=== PATIENT | female | born 1945 | race Caucasian/White ===

== ENCOUNTER 2017-02-21 13:51 | Observation (INO) | payer MEDICARE ==
[2017-02-21] MEDS ORDERED: Nitrostat 0.4 MG Tablet SL PRN (14:14)
[2017-02-21] MEDS: ECOTRIN 81 MG PO SCH (14:29)
[2017-02-21 15:11] LABS: ALBUMIN 3.9 g/dL (3.4-5.0); ANION GAP 13.2 MEQ/L (5-15); BILIRUBIN,TOTAL 0.4 mg/dL (0.2-1.0); Carbon Dioxide 30.1 mEq/L (21-32); Potassium 4.5 mEq/L (3.5-5.1); Total Protein 7.3 gm/dL (6.4-8.2)
--- NOTE | 2017-02-21 16:28 | XRAY ---
Indication: Chest pain. Comparison: March 24, 2016. PA/lateral chest remains hyperinflated and clear. Heart is not enlarged. Vascularity normal. Bony thorax intact again with mild osteopenia and minimal scoliosis. Impression: Stable nonacute hyperinflated chest.
[2017-02-21] MEDS: Lasix 40 MG PO SCH (17:15)
[2017-02-21 18:01] LABS: BASOPHIL % 0.6 % (0.0-0.4); Eosinophil % 3.2 % (0.00-5.0); Granulocytes % 56.5 % (36.0-66.0); Lymphocytes % 33.4 % (24.0-44.0); Mean Cell Volume 90.3 fl (78-100); Mean Platelet Volume 9.9 fl (6-9.5); Monocytes % 6.3 % (0.0-12.0); Platelet Count 239 K/mm3 (150-450); Red Blood Count 4.31 M/mm3 (4.1-5.4); Red Cell Distribution Width 13.9 % (11.5-14.0); White Blood Count 6.5 K/mm3 (4.0-10.5)
[2017-02-21] MEDS: Colace 100 MG PO SCH (21:28)
[2017-02-21] MEDS: Klor Con 10 MEQ PO SCH (21:28)
[2017-02-21] MEDS: MORPHINE SULFATE 4 MG INJ IV PRN (23:29)
[2017-02-22] MEDS: MORPHINE SULFATE 4 MG INJ IV PRN (05:55)
--- NOTE | 2017-02-22 09:03 | HP ---
CHIEF COMPLAINT: Chest pain, left arm pain and leg pain. HISTORY OF PRESENT ILLNESS: The patient is a 71 year-old white female who presented to my office with complaints of significant left arm pain and pressure-type sensation. She has been having chest pain off and on intermittently. She has not been taking medication for this. 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 The patient also complained of significant cramping in her hands and feet that are debilitating and bring her to tears. The patient due to her complaints with concern for cardiac in nature EKG was performed in the office and was not normal but there was no significant ST-T wave changes. The patient was felt the need to be admitted to the hospital to rule out myocardial infarction and to help evaluate for these leg cramps. PAST MEDICAL HISTORY: Significant for rheumatoid arthritis, narcolepsy, coronary artery disease. HOME MEDICATIONS: List includes aspirin 81 mg a day, stool softener, Lasix 40 mg b.i.d., magnesium tablets on a PRN basis for the cramps and meloxicam 15 mg a day, Ritalin 20 mg a day for narcolepsy, Prilosec 20 mg a day, fluoxetine 20 mg a day and potassium mEq b.i.d. ALLERGIES: NKDA. PHYSICAL EXAMINATION: Revealed a well nourished, well developed, elderly white female who was noted to be in mild to moderate distress. Her most recent vital signs show a temperature of 97.9F, pulse 73, respiratory rate 16, blood pressure 119/60. O2 saturation 93% on room air. HEENT: Normocephalic, atraumatic. Pupils equal round reactive to light. Extraocular movements intact. Oropharynx is pink and moist. NECK: Supple without lymphadenopathy, thyromegaly or JVD. CHEST: Clear to auscultation with good air movement bilaterally. HEART: Regular rate and rhythm without murmurs, rubs or gallops heard. ABDOMEN: Soft, nontender, nondistended without hepatosplenomegaly or masses. EXTREMITIES: Without clubbing, cyanosis or edema. NEUROLOGIC: The patient is alert and oriented x3 with no focal deficits. LAB DATA AND TESTS: Chest x-ray with no abnormalities noted. Her EKG showed her to be in sinus rhythm with somewhat low voltage and left axis deviation and poor R-wave progression across the precordial leads. Her laboratory studies otherwise show her troponins to be less than 0.017. She had CBC which was entirely normal. Her metabolic panel was likewise normal with a glucose of 107, BUN 15, creatinine 1.22, potassium 4.5, calcium 9.3 and magnesium was 2.0. ASSESSMENT: 1) A patient with chest pain and history of coronary artery disease. She has been admitted to rule out myocardial infarction. 2) Significant muscle cramps. The patient has been given morphine for pain relief. She will be treated with diltiazem 30 mg t.i.d. orally to try to help out with these muscle cramps as well as PRN magnesium. We will also leave her an order for Flexeril 10 mg t.i.d. PRN for the cramps if the above does not help. We will also have her evaluated by OT/PT to help out strengthening and ambulation.
[2017-02-22] MEDS: Cardizem 30 MG PO SCH ×3 (09:32→20:47)
[2017-02-22] MEDS: MAG-OX 400 PO SCH ×3 (09:32→20:46)
[2017-02-22] MEDS: Paxil 20 MG PO SCH (09:33)
[2017-02-22] MEDS: Lasix 40 MG PO SCH ×2 (09:33→16:44)
[2017-02-22] MEDS: Klor Con 10 MEQ PO SCH ×2 (09:33→20:47)
[2017-02-22] MEDS: Protonix 40MG Tablet PO SCH (09:33)
[2017-02-22] MEDS: Colace 100 MG PO SCH ×2 (09:33→20:47)
[2017-02-22] MEDS: ECOTRIN 81 MG PO SCH (09:33)
[2017-02-22] MEDS: Mobic 7.5 MG PO SCH (09:34)
[2017-02-22] MEDS: Ritalin 5 MG PO SCH (09:41)
[2017-02-22] MEDS ORDERED: NON-FORMULARY ITEM (Meloxicam [Mobic] 15 MG) PO SCH (10:00)
[2017-02-22] MEDS ORDERED: MAG-OX 400 PO SCH (10:00)
[2017-02-22] MEDS ORDERED: NON-FORMULARY ITEM (Omeprazole 20 Mg [Prilosec 20 Mg] 40 MG) PO SCH (10:00)
[2017-02-22] MEDS ORDERED: METHYLPHENIDATE HCL 20 MG PO SCH (10:00)
[2017-02-22 10:01] LABS: PHOSPHOROUS 4.5 mg/dL (2.6-4.7)
[2017-02-22] MEDS: ENOXAPARIN SODIUM SQ SCH (11:00)
[2017-02-22] MEDS: Cyclobenzaprine 10 MG PO PRN (11:00)
[2017-02-22 23:36] VITALS: O2SAT 92
[2017-02-23 04:14] VITALS: BP 128/61; PULSE 62
[2017-02-23] MEDS: Cardizem 30 MG PO SCH (05:58)
--- NOTE | 2017-02-23 08:42 | PCM.DCORD ---
- Discharge Discharge Date: 02/23/17 Prescriptions: New Diltiazem HCl 30 mg [Cardizem 30 MG] 30 mg PO Q8HT #90 tablet Cyclobenzaprine HCl 10 mg [Cyclobenzaprine 10 MG] 10 mg PO TID PRN PRN #30 tablet PRN Reason: Muscle Spasms Continue Furosemide 40 mg PO BID Magnesium Oxide 400 mg [Mag-Ox 400] 400 mg PO DAILY Omeprazole 20 MG [Prilosec 20 mg] 40 mg PO DAILY Potassium Chloride [Klor-Con 10] 20 meq PO BID Docusate Sodium [Stool Softener] 100 mg PO BID Paroxetine HCl [Paxil] 20 mg PO DAILY Aspirin 81 mg PO QAM Meloxicam [Mobic] 15 mg PO DAILY Methylphenidate HCl [Ritalin] 20 mg PO DAILY 30 Days #30 tablet Instructions: Atypical Chest Pain Follow up with: MANJIT LEE [Primary Care Provider] - 1 Week
[2017-02-23] MEDS: MAG-OX 400 PO SCH (08:52)
[2017-02-23] MEDS: ECOTRIN 81 MG PO SCH (08:52)
[2017-02-23] MEDS: Protonix 40MG Tablet PO SCH (08:52)
[2017-02-23] MEDS: Colace 100 MG PO SCH (08:52)
[2017-02-23] MEDS: Paxil 20 MG PO SCH (08:52)
[2017-02-23] MEDS: Lasix 40 MG PO SCH (08:54)
[2017-02-23] MEDS: Klor Con 10 MEQ PO SCH (08:54)
[2017-02-23] MEDS: Ritalin 5 MG PO SCH (08:55)
[2017-02-23] MEDS: Mobic 7.5 MG PO SCH (08:56)
[2017-02-23] MEDS: ENOXAPARIN SODIUM SQ SCH (08:57)
[2017-02-23] MEDS: Cyclobenzaprine 10 MG PO PRN (09:01)
== END 2017-02-23 11:20 | disposition home or self-care (01) ==
LOC: ICU 14:03 → MED SURG 02-22 09:52
PROVIDERS: ADMIT Family Medicine; ATTEND Family Medicine
DX: R07.89 Other chest pain (principal); I25.10 Atherosclerotic heart disease of native coronary artery without angina pectoris; R25.2 Cramp and spasm; M79.622 Pain in left upper arm; M06.9 Rheumatoid arthritis, unspecified; G47.419 Narcolepsy without cataplexy; Z79.899 Other long term (current) drug therapy
CPT/HCPCS: 36415; 71020; 80053; 83735; 83880; 83970; 84100; 84436; 84443; 84484; 85025; 85652; 86140; 93005; 93268; 93306; 94760; G0378; J1650; J2270; A9270-GY

== ENCOUNTER 2021-12-30 09:58 | Observation (INO) | payer MEDICARE ==
[2021-12-30] MEDS ORDERED: DUONEB 0.5-3 MG/3 ml Neb IH ONE (10:03)
[2021-12-30] MEDS: VENTOLIN COMMON CANISTER IH PRN (10:15)
[2021-12-30 10:25] LABS: Absolute Neutrophil Ct (ANC) 3.26 x10^3/uL (1.4-6.9); Basophil (Absolute #) 0.01 x10^3/uL (0-0.4); Eosinophil % 2.4 % (0.00-5.0); Eosinophil (Absolute #) 0.11 x10^3/uL (0-0.5); Hemoglobin 10.9 g/dL (12.0-16.0); Lymphocyte (Absolute #) 0.94 x10^3/uL (1.0-4.6); Lymphocytes % 20.1 % (24.0-44.0); Mean Cell Volume 85.9 fL (78-100); Mean Corpuscular Hgb Concent. 30.3 g/dL (32-36); Mean Platelet Volume 9.2 fL (7.5-11.0); Monocyte (Absolute #) 0.34 x10^3/uL (0.0-1.3); Monocytes % 7.3 % (0.0-12.0); Neutrophil % 69.8 % (36.0-66.0); Platelet Count 189 x10^3/uL (150-450); Red Blood Count 4.19 x10^6/uL (4.1-5.4); Red Cell Distribution Width 14.6 % (11.5-14.0); White Blood Count 4.7 x10^3/uL (4.0-10.5)
--- NOTE | 2021-12-30 10:31 | ERPHSYRPT ---
- History of Present Illness Source: patient Exam Limitations: other (Poor historian) Patient Subjective Stated Complaint: C/O SOB, cough, headache that started around Monday. Denies fever. Triage Nursing Assessment: Arrived in ED in a wheelchair; [facility] due to decreased 02 sats. 02 stat 88% on room air. Currently on 02 @ 3L per N/C. Patient does not use/wear 02 at home. Non-productive cough ntoed. Patient SOB with rest. All lung jacobson coarse. Physician History: 76 yo wf w progressive dyspnea x 4-5 days. Pt had +CV19 test yesterday and presented to [facility] w Sats of 85% on RA. She smokes 1ppd, and Dr. Blue recently wanted her to start home O2. Dyspnea is worse upon exertion, and chronic cough has not worsened. She currently denies chest pain but took 2 SL NTG 2 days ago for probable chest pain. Fever/N/V/D/melena/hematochezia all denied. Timing/Duration: other (4-5 days) Severity of Dyspnea-Max: moderate Severity of Dyspnea-Current: moderate Possible Cause: occasional episodes Modifying Factors: Improves With: activity Associated Symptoms: cough, chest pain/discomfort, productive cough, No edema, No fever, No insomnia, No loss of appetite, No lightheadedness, No wheezing, No weakness, No ankle swelling, No chills, No hemoptysis, No calf pain, No dizziness, No heaviness, No heart racing, No lightheadedness, No leg swelling, No muscle spasms feet, No muscle spasms hands, No painful breathing, No sweating, No tightness, No tingling face Allergies/Adverse Reactions: No Known Drug Allergies Allergy (Verified 12/30/21 10:02) Home Medications: ALPRAZolam [Alprazolam] 0.5 mg PO TID PRN 12/30/21 [History] Albuterol Sulfate [Albuterol Sulfate Hfa] 2 puff PO Q4-6HPRN PRN 12/30/21 [History] Atorvastatin Calcium [Lipitor] 40 mg PO DAILY 12/30/21 [History] Diltiazem HCl [Cardizem] 30 mg PO TID 12/30/21 [History] Furosemide 40 mg [Lasix 40 MG] 40 mg PO DAILY 12/30/21 [History] Gabapentin 300 mg PO TID 12/30/21 [History] Metoprolol Succinate 25 mg Xl* [Toprol-Xl 25MG Tablets] 25 mg PO DAILY 12/30/21 [History] Omeprazole 40 mg PO BID 12/30/21 [History] PARoxetine HCl [Paxil] 40 mg PO DAILY 12/30/21 [History] Potassium Chloride [Klor-Con 10] 10 meq PO BID 12/30/21 [History] Tramadol HCl 50 mg [Ultram 50 mg] 50 mg PO TID PRN 12/30/21 [History] Hx Tetanus, Diphtheria Vaccination/Date Given: Yes Hx Influenza Vaccination/Date Given: No Hx Pneumococcal Vaccination/Date Given: Yes Immunizations Up to Date: Yes Travel Risk - International Travel Have you traveled outside of the country in past 3 weeks: No - Coronavirus Screening Are you exhibiting any of the following symptoms?: Yes Symptoms: Cough: New Onset, Shortness of Breath, Headaches/Body Aches/Fatigue Close contact with a COVID-19 positive Pt in past 14-21 Days: Yes - Vaccine Status Have you recieved a Covid-19 vaccination: Yes 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 - Vaccination Dates Date of 2cond Vaccination (if applicable): 2020 - Review of Systems Constitutional: No Symptoms Eyes: No Symptoms Ears, Nose, & Throat: No Symptoms Respiratory: No Symptoms, Cough, Dyspnea, Dyspnea on Exertion ([place]) Cardiac: No Symptoms, Chest Pain Abdominal/Gastrointestinal: No Symptoms Genitourinary Symptoms: No Symptoms Musculoskeletal: No Symptoms Skin: No Symptoms Neurological: No Symptoms Psychological: No Symptoms Endocrine: No Symptoms Hematologic/Lymphatic: No Symptoms Immunological/Allergic: No Symptoms - Past Medical History Pertinent Past Medical History: Yes Neurological History: No Pertinent History ENT History: Cataracts Cardiac History: Angina, High Cholesterol Respiratory History: COPD, Pneumonia Endocrine Medical History: No Pertinent History Musculoskeletal History: Arthritis GI Medical History: Hemorrhoids, Hernia, Polyps, Ulcer History: No Pertinent History Psycho-Social History: Anxiety, Depression Female Reproductive Disorders: No Pertinent History - Past Surgical History Past Surgical History: Yes Neuro Surgical History: No Pertinent History Cardiac: No Pertinent History Respiratory: No Pertinent History Gastrointestinal: Appendectomy, Cholecystectomy Genitourinary: No Pertinent History Musculoskeletal: No Pertinent History Female Surgical History: Section, Hysterectomy Other Surgical History: RIGHT KIDNEY REMOVAL - Social History Smoking Status: Current every day smoker How long have you smoked: 45+ Exposure to second hand smoke: Yes Drug Use: none Patient Lives Alone: No (Brother) Significant Family History: no pertinent family hx - Nursing Vital Signs Nursing Vital Signs: Initial Vital Signs Temperature 98.9 F 12/30/21 10:04 Pulse Rate 80 12/30/21 10:04 Respiratory Rate 19 12/30/21 10:04 Blood Pressure 125/77 12/30/21 10:04 O2 Sat by Pulse Oximetry 98 12/30/21 10:04 Pain Scale Pain Intensity 3 Sats 98% on 2L O2 NC - Physical Exam General Appearance: mild distress Eye Exam: PERRL/EOMI, eyes nml inspection Ears, Nose, Throat Exam: normal ENT inspection, normal pharynx Neck Exam: normal inspection, non-tender, supple, full range of motion, No Brudzinski, No Kernig's, No meningismus, No carotid bruit Respiratory Exam: respiratory distress (Mild), prolonged expirations, rhonchi, wheezing Cardiovascular/Chest Exam: normal heart sounds, regular rate/rhythm, normal peripheral pulses, No murmur Abdominal/Gastrointestinal Exam: soft, normal bowel sounds, No tenderness Extremity Exam: non-tender, normal range of motion, normal inspection, normal capillary refill Peripheral Pulses Exam: carotid (R): 2+, carotid (L): 2+ Neurologic Exam: alert, oriented x 3, cooperative, 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 as tested, normal mood/affect, nml station & gait, sensation nml, No motor deficits, No sensory deficit Skin Exam: normal color, warm, dry Lymphatic Exam: No adenopathy SpO2 Interpretation: normal SpO2: 98 O2 Delivery: Room Air - Course Nursing assessment & vital signs reviewed: Yes EKG Interpreted by Me: RATE (NSR/Rate79/Normal QT-QTc/LAFB/Poor R wave progres riaz-Old anterior FL) - Radiology Exams Chest X-ray Interpretation: Interpreted by me (CXR NAD per ER read) Ordered Tests: Active Orders 24 hr Category Date Time Status EKG-ER Only STAT Care 12/30/21 10:00 Completed IV Insertion STAT Care 12/30/21 10:00 Completed Consistent Carbohydrate Diet 2000 Calorie Diet 12/30/21 Dinner Active CHEST 1 VIEW (PORTABLE) Stat Exams 12/30/21 10:01 Completed CBC W DIFF AM.LAB Lab 12/31/21 04:00 Ordered CBC W DIFF Stat Lab 12/30/21 10:20 Completed CMP AM.LAB Lab 12/31/21 04:00 Ordered CMP Stat Lab 12/30/21 10:20 Completed Lactic Acid Stat Lab 12/30/21 10:00 Completed NT PRO BNP Stat Lab 12/30/21 10:20 Completed PROTIME WITH INR Stat Lab 12/30/21 10:20 Completed PTT Stat Lab 12/30/21 10:20 Completed TROPONIN Q3H Lab 12/30/21 10:20 Completed TROPONIN Q3H Lab 12/30/21 13:40 Completed TROPONIN Q3H Lab 12/30/21 16:40 Completed UA W/RFX CULTURE Stat Lab 12/30/21 Ordered Respiratory MDI STAT RT 12/30/21 11:00 Completed Respiratory Therapy Assessment DAILY RT 12/30/21 11:00 Completed Transfer Order Routine Transfer 12/30/21 Completed Medication Summary Generic Name Dose Route Start Last Admin Trade Name Freq PRN Reason Stop Dose Admin Albuterol Sulfate 4 puff 12/30/21 10:15 12/30/21 10:15 Albuterol Common Canister Inhaler 01/29/22 10:14 4 puff Q4H PRN PRN Administration SHORTNESS OF BREATH/WHEEZING Albuterol Sulfate 4 puff 12/30/21 15:00 12/30/21 19:05 Albuterol Common Canister Inhaler 01/29/22 14:59 4 puff QIDRT GISELLE Administration Alprazolam 0.5 mg 12/30/21 17:30 Alprazolam 0.5 Mg Tablet PO 01/29/22 17:17 TIDPRN PRN ANXIETY Dexamethasone Sodium Phosphate 4 mg 12/31/21 10:00 Dexamethasone Sod Phosphate 4 Mg/Ml Ml IV 01/30/22 09:59 DAILY GISELLE Diltiazem HCl 30 mg 12/30/21 22:00 Diltiazem Hcl 30 Mg Tablet PO 01/29/22 21:59 TID GISELLE Enoxaparin Sodium 30 mg 12/30/21 14:00 12/30/21 14:07 Enoxaparin Sodium 30 Mg/0.3 Ml Syringe SQ 01/29/22 13:59 30 mg DAILY GISELLE Administration Famotidine 20 mg 12/30/21 22:00 Famotidine 20 Mg/1 Vial IV 01/29/22 21:59 Q12HT GISELLE Furosemide 40 mg 12/31/21 10:00 Furosemide 40 Mg Tablet PO 01/30/22 09:59 DAILY GISELLE Gabapentin 300 mg 12/30/21 22:00 Gabapentin 300 Mg Capsule PO 01/29/22 21:59 TID GISELLE Remdesivir 100 mg/ Sodium 100 mls @ 100 mls/hr 12/31/21 10:00 Chloride IV 01/03/22 10:59 DAILY GISELLE Metoprolol Succinate 25 mg 12/30/21 18:00 12/30/21 17:37 Metoprolol Succinate 25 Mg Xl Tab PO 01/29/22 17:59 25 mg DAILY GISELLE Administration Nicotine 21 mg 12/30/21 15:45 12/30/21 16:20 Nicotine 21 Mg/Patch Patch TOP 01/29/22 15:44 21 mg Q24H GISELLE Administration Ondansetron HCl 4 mg 12/30/21 11:52 Ondansetron Hcl 4 Mg/2 Ml Vial IV 01/29/22 11:51 Q6H PRN PRN NAUSEA/VOMITING Pantoprazole Sodium 40 mg 12/30/21 18:00 12/30/21 17:38 Protonix (Pantoprazole) 40 Mg Tablet PO 01/29/22 17:59 40 mg DAILY GISELLE Administration Paroxetine HCl 40 mg 12/30/21 18:00 12/30/21 17:37 Paroxetine Hcl 20 Mg Tablet PO 01/29/22 17:59 40 mg DAILY GISELLE Administration Potassium Chloride 10 meq 12/30/21 22:00 Potassium Chloride Tab 10 Meq Tab PO 01/29/22 21:59 BID GISELLE Simvastatin 40 mg 12/30/21 18:00 12/30/21 17:38 Simvastatin 20 Mg Tablet PO 01/29/22 17:59 40 mg DAILY GISELLE Administration Tramadol HCl 50 mg 12/30/21 17:30 12/30/21 17:38 Tramadol Hcl 50 Mg Tablet PO 01/29/22 17:17 50 mg TIDPRN PRN Administration PAIN Discontinued Medications Generic Name Dose Route Start Last Admin Trade Name Freq PRN Reason Stop Dose Admin Albuterol/Ipratropium 3 ml 12/30/21 10:03 12/30/21 10:57 Ipratropium/Albuterol Sulfate 3 Ml Ampul.Neb IH 12/30/21 10:04 Not Given STAT ONE Alprazolam 0.5 mg 12/30/21 17:18 Alprazolam 0.5 Mg Tablet PO 01/29/22 17:17 TID PRN ANXIETY Dexamethasone Sodium Phosphate 10 mg 12/30/21 11:48 12/30/21 12:03 Dexamethasone Sod Phosphate 10 Mg/Ml IV 12/30/21 11:49 10 mg STAT ONE Administration Dexamethasone Sodium Phosphate Confirm 12/30/21 12:02 Dexamethasone Sod Phosphate 10 Mg/Ml Administered 12/30/21 12:03 Dose 10 mg .ROUTE .STK-MED ONE Enoxaparin Sodium 40 mg 12/31/21 10:00 Enoxaparin Sodium 40 Mg/0.4 Ml Syringe SQ 01/30/22 09:59 DAILY GISELLE Fentanyl Citrate 25 mcg 12/30/21 11:59 12/30/21 12:03 Fentanyl Citrate 100 Mcg/2 Ml* Vial IV 12/30/21 12:00 25 mcg STAT ONE Administration Fentanyl Citrate Confirm 12/30/21 12:02 Fentanyl Citrate 100 Mcg/2 Ml* Vial Administered 12/30/21 12:03 Dose 100 mcg .ROUTE .STK-MED ONE Remdesivir 200 mg/ Sodium 250 mls @ 125 mls/hr 12/30/21 11:57 12/30/21 14:06 Chloride IV 12/30/21 13:56 125 mls/hr ONCE ONE Administration Sodium Chloride 1,000 mls @ 50 mls/hr 12/30/21 12:00 12/30/21 14:07 Sodium Chloride 0.9% 1000 Ml IV 01/29/22 11:59 50 mls/hr .Q20H GISELLE Administration Ondansetron HCl 4 mg 12/30/21 12:00 12/30/21 12:03 Ondansetron Hcl 4 Mg/2 Ml Vial IV 12/30/21 12:01 4 mg STAT ONE Administration Tramadol HCl 50 mg 12/30/21 17:18 Tramadol Hcl 50 Mg Tablet PO 01/29/22 17:17 TID PRN PAIN Lab/Rad Data: Laboratory Result Diagrams 12/30/21 10:20 12/30/21 10:20 Laboratory Results 12/30/21 12/30/21 12/30/21 Range/Units 10:20 10:20 10:20 WBC (4.0-10.5) x10^3/uL RBC (4.1-5.4) x10^6/uL Hgb (12.0-16.0) g/dL Hct (35-47) % MCV (78-100) fL MCH (26-32) pg MCHC (32-36) g/dL RDW (11.5-14.0) % Plt Count (150-450) x10^3/uL MPV (7.5-11.0) fL Gran % (36.0-66.0) % Immature Gran % (Auto) (0.00-0.4) % Nucleat RBC Rel Count (0.00-0.1) % Eos # (Auto) (0-0.5) x10^3/uL Immature Gran # (Auto) (0.00-0.03) x10^3u/L Absolute Lymphs (auto) (1.0-4.6) x10^3/uL Absolute Monos (auto) (0.0-1.3) x10^3/uL Absolute Nucleated RBC (0.00-0.01) x10^3u/L Lymphocytes % (24.0-44.0) % Monocytes % (0.0-12.0) % Eosinophils % (0.00-5.0) % Basophils % (0.0-0.4) % Absolute Granulocytes (1.4-6.9) x10^3/uL Basophils # (0-0.4) x10^3/uL PT 11.5 (9.4-12.5) SECONDS INR 1.09 (0.8-3.0) APTT 27.9 (25.1-36.5) SECONDS Sodium (137-145) mmol/L Potassium (3.5-5.1) mmol/L Chloride (98-107) mmol/L Carbon Dioxide (22-30) mmol/L Anion Gap (5-15) MEQ/L BUN (7-17) mg/dL Creatinine (0.52-1.04) mg/dL Estimated GFR ML/MIN Glucose (74-106) mg/dL Lactic Acid (0.4-2.0) Calcium (8.4-10.2) mg/dL Total Bilirubin (0.2-1.3) mg/dL AST (14-36) U/L ALT (0-35) U/L Alkaline Phosphatase (38-126) U/L Troponin I < 0.012 (0.000-0.034) ng/mL NT-Pro-B Natriuret Pep (0-1800) pg/mL Serum Total Protein (6.3-8.2) g/dL Albumin (3.5-5.0) g/dL Influenza Type A Ag NEGATIVE (NEGATIVE) Influenza Type B Ag NEGATIVE (NEGATIVE) RSV (PCR) NEGATIVE (Negative) SARS-CoV-2 (PCR) POSITIVE A (NEGATIVE) 12/30/21 12/30/21 12/30/21 Range/Units 10:20 10:20 10:00 WBC 4.7 (4.0-10.5) x10^3/uL RBC 4.19 (4.1-5.4) x10^6/uL Hgb 10.9 L (12.0-16.0) g/dL Hct 36.0 (35-47) % MCV 85.9 (78-100) fL MCH 26.0 (26-32) pg MCHC 30.3 L (32-36) g/dL RDW 14.6 H (11.5-14.0) % Plt Count 189 (150-450) x10^3/uL MPV 9.2 (7.5-11.0) fL Gran % 69.8 H (36.0-66.0) % Immature Gran % (Auto) 0.2 (0.00-0.4) % Nucleat RBC Rel Count 0.0 (0.00-0.1) % Eos # (Auto) 0.11 (0-0.5) x10^3/uL Immature Gran # (Auto) 0.01 (0.00-0.03) x10^3u/L Absolute Lymphs (auto) 0.94 L (1.0-4.6) x10^3/uL Absolute Monos (auto) 0.34 (0.0-1.3) x10^3/uL Absolute Nucleated RBC 0.00 (0.00-0.01) x10^3u/L Lymphocytes % 20.1 L (24.0-44.0) % Monocytes % 7.3 (0.0-12.0) % Eosinophils % 2.4 (0.00-5.0) % Basophils % 0.2 (0.0-0.4) % Absolute Granulocytes 3.26 (1.4-6.9) x10^3/uL Basophils # 0.01 (0-0.4) x10^3/uL PT (9.4-12.5) SECONDS INR (0.8-3.0) APTT (25.1-36.5) SECONDS Sodium 137 (137-145) mmol/L Potassium 4.4 (3.5-5.1) mmol/L Chloride 99 (98-107) mmol/L Carbon Dioxide 29 (22-30) mmol/L Anion Gap 13.2 (5-15) MEQ/L BUN 17 (7-17) mg/dL Creatinine 1.53 H (0.52-1.04) mg/dL Estimated GFR 35.0 ML/MIN Glucose 112 H (74-106) mg/dL Lactic Acid 1.1 (0.4-2.0) Calcium 8.5 (8.4-10.2) mg/dL Total Bilirubin 0.50 (0.2-1.3) mg/dL AST 17 (14-36) U/L ALT 10 (0-35) U/L Alkaline Phosphatase 128 H (38-126) U/L Troponin I (0.000-0.034) ng/mL NT-Pro-B Natriuret Pep 87.2 (0-1800) pg/mL Serum Total Protein 6.9 (6.3-8.2) g/dL Albumin 3.4 L (3.5-5.0) g/dL Influenza Type A Ag (NEGATIVE) Influenza Type B Ag (NEGATIVE) RSV (PCR) (Negative) SARS-CoV-2 (PCR) (NEGATIVE) - Progress Progress: improved Progress Note: 12/30/21 11:[address] Blue 10mg IV Decadron 12/30/21 20:47 Combivent inhalation w improvement Pt's sats 94-95% after 3L NC placed in ER Counseled pt/family regarding: lab results, diagnosis, need for follow-up, rad results - Departure Departure Disposition: Observation Clinical Impression: COVID-19 Condition: Stable Critical Care Time: No
[2021-12-30 10:53] LABS: INR 1.09 (0.8-3.0); PROTIME 11.5 SECONDS (9.4-12.5); PTT 27.9 SECONDS (25.1-36.5)
[2021-12-30 10:59] LABS: ALBUMIN 3.4 g/dL (3.5-5.0); ANION GAP 13.2 MEQ/L (5-15); BILIRUBIN,TOTAL 0.5 mg/dL (0.2-1.3); Calcium 8.5 mg/dL (8.4-10.2); Creatinine 1 1.53 mg/dL (0.52-1.04); NT PRO BNP 87.2 pg/mL (0-1800); Potassium 4.4 mmol/L (3.5-5.1); Total Protein 6.9 g/dL (6.3-8.2)
[2021-12-30 11:01] LABS: INFLUENZA A NEGATIVE (NEGATIVE); INFLUENZA B NEGATIVE (NEGATIVE); RESPIRATORY SYNCTIAL VIRUS NEGATIVE (Negative)
[2021-12-30 11:30] LABS: SARS-CoV-2 Xpert Express POSITIVE (NEGATIVE)
[2021-12-30] MEDS ORDERED: DECADRON 10MG INJ. IV ONE (11:48)
[2021-12-30] MEDS ORDERED: Zofran 4 MG/2 ML VIAL IV PRN (11:52)
[2021-12-30] MEDS ORDERED: REMDESIVIR 200 MG in Sodium Chloride 0.9% 250 ML 250 ML IV ONE (11:57)
[2021-12-30] MEDS ORDERED: SUBLIMAZE 100 MCG/2 ML IV ONE (11:59)
[2021-12-30] MEDS ORDERED: Sodium Chloride 0.9% 1000 ML 1,000 ML IV SCH (12:00)
[2021-12-30] MEDS ORDERED: Zofran 4 MG/2 ML VIAL IV ONE (12:00)
[2021-12-30] MEDS ORDERED: DECADRON 10MG INJ. ONE (12:02)
[2021-12-30] MEDS ORDERED: SUBLIMAZE 100 MCG/2 ML ONE (12:02)
--- NOTE | 2021-12-30 12:10 | XRAY ---
Exam: AP upright portable chest film. Comparison: Two-view chest film series from 02/02/[address] of the chest without IV contrast from 02/15/2021. Indication: 76-year-old female with dyspnea, shortness of breath, covid-19 positive, smoker. Findings: The transverse heart size appears within normal limits. Atherosclerotic calcification is seen within the aortic knob and proximal descending thoracic aorta. There is some mild central bronchial wall thickening within the c[place]. No abnormal perihilar or mediastinal mass is seen. I note some mild scarring/subsegmental atelectasis at both lung bases. I cannot exclude some bronchiectasis at the medial right lung base, as previously questioned on the chest CT scan from 02/15/2021. I see no new air space infiltrates, vascular congestion, pneumothorax, or pleural fluid. Respiratory tubing is seen overlying the left lung apex. Some surgical clips are seen just to the left of midline within the epigastrium. Correlate with surgical history. The bones are mildly demineralized. Impression: 1. I don't believe there has been a significant interval change from 02/02/2021. Mild scarring/subsegmental atelectasis is again seen at both lung bases. Some focal bronchiectasis of the medial right lung base cannot be excluded. 2. No new air space infiltrates or heart failure is seen. No other acute cardiopulmonary disease is seen.
[2021-12-30] MEDS: ENOXAPARIN SODIUM SQ SCH (14:07)
[2021-12-30] MEDS: Nicoderm CQ 21 MG TOP SCH (16:20)
[2021-12-30] MEDS ORDERED: ULTRAM 50 MG PO PRN (17:18)
[2021-12-30] MEDS ORDERED: xanAX 0.5 MG PO PRN ×2 (17:18→17:30)
[2021-12-30] MEDS: Paxil 20 MG PO SCH (17:37)
[2021-12-30] MEDS: Toprol-Xl 25MG Tablets PO SCH (17:37)
[2021-12-30] MEDS: ZOCOR 20MG PO SCH (17:38)
[2021-12-30] MEDS: ULTRAM 50 MG PO PRN ×2 (17:38→23:10)
[2021-12-30] MEDS: Protonix 40MG Tablet PO SCH (17:38)
[2021-12-30] MEDS: VENTOLIN COMMON CANISTER IH SCH (19:05)
[2021-12-30] MEDS ORDERED: NON-FORMULARY ITEM (Potassium Chloride [Klor-Con 10] 10 MEQ Tablet.Er) PO SCH (22:00)
[2021-12-30] MEDS ORDERED: NON-FORMULARY ITEM (Omeprazole [Omeprazole] 40 MG Capsule.Dr) PO SCH (22:00)
[2021-12-30] MEDS: Klor Con PO SCH (22:09)
[2021-12-30] MEDS: Pepcid 20 MG VIAL IV SCH (22:09)
[2021-12-30] MEDS: Cardizem 30 MG PO SCH (22:09)
[2021-12-30] MEDS: NEURONTIN PO SCH (22:09)
[2021-12-31 05:06] LABS: Hematocrit 35.1 % (35-47); Hemoglobin 10.6 g/dL (12.0-16.0); Mean Cell Volume 85.2 fL (78-100); Mean Corpuscular Hemoglobin 25.7 pg (26-32); Mean Corpuscular Hgb Concent. 30.2 g/dL (32-36); Mean Platelet Volume 9.4 fL (7.5-11.0); Platelet Count 165 x10^3/uL (150-450); Red Blood Count 4.12 x10^6/uL (4.1-5.4); Red Cell Distribution Width 14.4 % (11.5-14.0)
[2021-12-31 05:22] LABS: Mucus SLIGHT /HPF (NEGATIVE)
[2021-12-31 05:24] LABS: Appearance CLEAR (CLEAR); Bilirubin NEGATIVE (NEGATIVE); Glucose NEGATIVE (NEGATIVE); Ketones NEGATIVE (NEGATIVE)
[2021-12-31 05:25] LABS: Dipstick done @ ? MAIN LAB; Nitrite NEGATIVE (NEGATIVE); Ph 5.5 (5-6); Protein,Urine Dip NEGATIVE (Negative); RBC NEGATIVE Ery/ul (0-5); Specific Gravity 1.015 (1.005-1.025); Urine Cultured Indicated? NO; Urobilinogen 0.2 mg/dL (0-1)
[2021-12-31 05:43] LABS: ALBUMIN 3.1 g/dL (3.5-5.0); ANION GAP 10.3 MEQ/L (5-15); BILIRUBIN,TOTAL 0.3 mg/dL (0.2-1.3); Calcium 8.7 mg/dL (8.4-10.2); Creatinine 1 1.09 mg/dL (0.52-1.04); EST GLOMERULAR FILTRATION RATE 51.7 ML/MIN; Potassium 4.6 mmol/L (3.5-5.1); Total Protein 6.4 g/dL (6.3-8.2)
[2021-12-31] MEDS: VENTOLIN COMMON CANISTER IH SCH ×3 (07:40→19:23)
--- NOTE | 2021-12-31 07:53 | HP ---
CHIEF COMPLAINT: Shortness of breath. HISTORY OF PRESENT ILLNESS: The patient is a 76-year-old white female who has long history of chronic obstructive pulmonary disease. She continues to smoke despite our efforts to get her to quit. The patient was seen in office visit approximately a week ago and was noted to be somewhat hypoxic. She qualified for home oxygen but would not take the oxygen home due to her continued desire to smoke. The patient presented to the emergency room after having increasing shortness of breath and on evaluation was found to be positive for COVID. She has been admitted to the hospital for evaluation and management of the COVID infection on top of her history of significant chronic obstructive pulmonary disease and hypoxia. PAST MEDICAL/SURGICAL HISTORY: Otherwise significant for cataracts, chronic obstructive pulmonary disease, angina, hyperlipidemia, hemorrhoids, hernia, polyps and ulcers. She has had an appendectomy, cholecystectomy. She has had a hysterectomy, previous section. She had the right kidney removed. PHYSICAL EXAMINATION: Her vital signs in the emergency room revealed temperature 98.9F, pulse 80, respiratory rate 19 and blood pressure 125/77. O2 saturation 98% on supplemental oxygen. HEENT: Normocephalic, atraumatic. Pupils equal round reactive to light. Extraocular movements intact. The patient is wearing oxygen currently nasal cannula at 3 liters. Oropharynx is pink and moist. NECK: Supple without lymphadenopathy, thyromegaly or JVD. CHEST: Revealed coarse wheezes both lung bases. HEART: Regular rate and rhythm with significant murmurs, rubs or gallops heard. ABDOMEN: Soft. No palpable masses. EXTREMITIES: Without cyanosis, clubbing or edema. NEUROLOGIC: The patient is alert and oriented x3 with no focal deficits. LAB DATA AND TESTS: The patient's laboratory studies, x-rays reveal no significant change since the previous. No new air base infiltrates or heart failure was seen. The patient's lab values in the emergency room revealed hemoglobin 10.9, white count 4.7, PLT count 189,000. Her BUN 17, creatinine 1.53. Electrolytes were normal. Her INR was 1.09. Troponins were less than 0.012. COVID test again was positive. Respiratory syncytial virus and influenza were negative. The patient's ProBNP was normal at 87.2. ASSESSMENT: A patient with chronic obstructive pulmonary disease exacerbation with COVID. She has been hypoxic and admitted to the hospital for Decadron, Remdesivir, nebulizer treatments. We will continue her usual home medications.
[2021-12-31 08:07] LABS: Lymphocytes 31 % (24-44); Monocyte 4 % (0.0-12.0); Total Cells Counted 100
[2021-12-31 08:08] LABS: Platelet Estimate NORMAL (NORMAL)
[2021-12-31] MEDS: Decadron 4 MG INJ IV SCH (09:45)
[2021-12-31] MEDS: Toprol-Xl 25MG Tablets PO SCH (09:46)
[2021-12-31] MEDS: Pepcid 20 MG VIAL IV SCH ×2 (09:46→22:03)
[2021-12-31] MEDS: ZOCOR 20MG PO SCH (09:46)
[2021-12-31] MEDS: Paxil 20 MG PO SCH (09:46)
[2021-12-31] MEDS: Protonix 40MG Tablet PO SCH (09:46)
[2021-12-31] MEDS: NEURONTIN PO SCH ×3 (09:46→22:03)
[2021-12-31] MEDS: ENOXAPARIN SODIUM SQ SCH (09:46)
[2021-12-31] MEDS: Klor Con PO SCH ×2 (09:46→22:03)
[2021-12-31] MEDS: Cardizem 30 MG PO SCH ×3 (09:46→22:03)
[2021-12-31] MEDS: Lasix 40 MG PO SCH (09:46)
[2021-12-31] MEDS: REMDESIVIR 100 MG in Sodium Chloride 0.9% 100 ML IV SCH (09:47)
[2021-12-31] MEDS ORDERED: LIPITOR 40MG PO SCH (10:00)
[2021-12-31] MEDS ORDERED: ENOXAPARIN SODIUM SQ SCH (10:00)
[2021-12-31] MEDS ORDERED: PAROXETINE HCL 40 MG PO SCH (10:00)
[2021-12-31] MEDS: Nicoderm CQ 21 MG TOP SCH (15:19)
[2021-12-31] MEDS: ULTRAM 50 MG PO PRN (17:18)
[2021-12-31] MEDS: VENTOLIN COMMON CANISTER IH PRN (19:58)
[2022-01-01 06:37] LABS: Absolute Neutrophil Ct (ANC) 2.37 x10^3/uL (1.4-6.9); Basophil (Absolute #) 0.01 x10^3/uL (0-0.4); Eosinophil (Absolute #) 0 x10^3/uL (0-0.5); Hematocrit 35.5 % (35-47); Hemoglobin 10.7 g/dL (12.0-16.0); Lymphocyte (Absolute #) 0.98 x10^3/uL (1.0-4.6); Lymphocytes % 27.6 % (24.0-44.0); Mean Cell Volume 86.2 fL (78-100); Mean Corpuscular Hgb Concent. 30.1 g/dL (32-36); Mean Platelet Volume 10.2 fL (7.5-11.0); Monocyte (Absolute #) 0.18 x10^3/uL (0.0-1.3); Monocytes % 5.1 % (0.0-12.0); Neutrophil % 66.7 % (36.0-66.0); Platelet Count 191 x10^3/uL (150-450); Red Blood Count 4.12 x10^6/uL (4.1-5.4); Red Cell Distribution Width 14.4 % (11.5-14.0); White Blood Count 3.6 x10^3/uL (4.0-10.5)
[2022-01-01 07:02] LABS: ALBUMIN 2.9 g/dL (3.5-5.0); BILIRUBIN,TOTAL 0.3 mg/dL (0.2-1.3); Calcium 8.5 mg/dL (8.4-10.2); Creatinine 1 1.3 mg/dL (0.52-1.04); EST GLOMERULAR FILTRATION RATE 42.2 ML/MIN; Potassium 4.5 mmol/L (3.5-5.1)
[2022-01-01] MEDS: VENTOLIN COMMON CANISTER IH PRN ×4 (07:15→20:19)
[2022-01-01] MEDS: Decadron 4 MG INJ IV SCH (10:21)
[2022-01-01] MEDS: Pepcid 20 MG VIAL IV SCH ×2 (10:21→21:29)
[2022-01-01] MEDS: REMDESIVIR 100 MG in Sodium Chloride 0.9% 100 ML IV SCH (10:21)
[2022-01-01] MEDS: Lasix 40 MG PO SCH (10:22)
[2022-01-01] MEDS: NEURONTIN PO SCH ×3 (10:22→21:29)
[2022-01-01] MEDS: Cardizem 30 MG PO SCH ×3 (10:22→21:28)
[2022-01-01] MEDS: ZOCOR 20MG PO SCH (10:22)
[2022-01-01] MEDS: Protonix 40MG Tablet PO SCH (10:22)
[2022-01-01] MEDS: ENOXAPARIN SODIUM SQ SCH (10:23)
[2022-01-01] MEDS: Toprol-Xl 25MG Tablets PO SCH (10:23)
[2022-01-01] MEDS: Klor Con PO SCH ×2 (10:23→21:28)
[2022-01-01] MEDS: Paxil 20 MG PO SCH (10:23)
[2022-01-01] MEDS: Nicoderm CQ 21 MG TOP SCH (15:59)
[2022-01-02 06:02] LABS: Hemoglobin 11.2 g/dL (12.0-16.0); Mean Cell Volume 91.5 fL (78-100); Mean Corpuscular Hemoglobin 26.3 pg (26-32); Mean Corpuscular Hgb Concent. 28.7 g/dL (32-36); Platelet Count 201 x10^3/uL (150-450); Red Blood Count 4.26 x10^6/uL (4.1-5.4); Red Cell Distribution Width 14.6 % (11.5-14.0); White Blood Count 4.4 x10^3/uL (4.0-10.5)
[2022-01-02 06:29] LABS: Calcium 8.3 mg/dL (8.4-10.2); Creatinine 1 1.3 mg/dL (0.52-1.04); EST GLOMERULAR FILTRATION RATE 42.2 ML/MIN
[2022-01-02 07:05] LABS: Slide Review YES
[2022-01-02] MEDS: REMDESIVIR 100 MG in Sodium Chloride 0.9% 100 ML IV SCH (10:34)
[2022-01-02] MEDS: Cardizem 30 MG PO SCH (10:35)
[2022-01-02] MEDS: Lasix 40 MG PO SCH (10:35)
[2022-01-02] MEDS: Decadron 4 MG INJ IV SCH (10:35)
[2022-01-02] MEDS: ZOCOR 20MG PO SCH (10:35)
[2022-01-02] MEDS: Pepcid 20 MG VIAL IV SCH (10:35)
[2022-01-02] MEDS: Klor Con PO SCH (10:36)
[2022-01-02] MEDS: Toprol-Xl 25MG Tablets PO SCH (10:36)
[2022-01-02] MEDS: Protonix 40MG Tablet PO SCH (10:36)
[2022-01-02] MEDS: ENOXAPARIN SODIUM SQ SCH (10:36)
[2022-01-02] MEDS: NEURONTIN PO SCH (10:36)
[2022-01-02] MEDS: Paxil 20 MG PO SCH (10:36)
[2022-01-02 13:33] VITALS: BP 125/68; PULSE 66; O2SAT 94
--- NOTE | 2022-01-11 19:46 | PCM.DS ---
Discharge Summary Date of Admission: 12/30/21 12:55 Date of Discharge: 01/02/2022 Admitting Physician: MANJIT LEE Primary Care Provider: MANJIT LEE Allergies Allergies No Known Drug Allergies Allergy (Verified 12/30/21 10:02) Hospital Summary - Hospital Course Hospital Course: Pt. admitted for copd exacerbation and positive for covid, pt. improved to baseline gradually and felt she was ready for discharge with appropriate outpatient treatment and follow-up. - Vitals & Intake/Output Vital Signs: Vital Signs Temperature 97.5 F 01/02/22 12:00 Pulse Rate 66 01/02/22 12:00 Respiratory Rate 22 01/02/22 12:00 Blood Pressure 125/68 01/02/22 12:00 O2 Sat by Pulse Oximetry 94 L 01/02/22 12:00 - Lab Result Diagrams: 01/02/22 05:58 01/02/22 05:58 - Procedures and Test Procedures and Tests throughout Hospitalization: Therapy Orders & Screens 12/30/21 11:00 Respiratory MDI STAT Comment: Respiratory Therapy Assessment DAILY Comment: 12/30/21 11:52 Oxygen Nasal Cannula 3 lpm Comment: Respiratory Therapy Consult ROUTINE Comment: Reason For Exam: 12/30/21 13:27 Smoking Cessation Education ONCE Comment: Diagnosis: COVID Smoking Status: Current every day smoker How long have you smoked: 45+ Have you smoked in the past 12 months: Yes Approximately how many cigarettes per day: 0.5-1 PPD Do you dip or chew tobacco: No 12/30/21 15:39 Respiratory Therapy Assessment DAILY Comment: Diagnosis: COVID Discharge Exam General Appearance: no apparent distress, alert Neurologic Exam: alert, oriented x 3, cooperative, normal mood/affect, nml cerebellar function, sensation nml, No motor deficits Eye Exam: PERRL, EOMI, eyes nml inspection Ears, Nose, Throat Exam: normal ENT inspection, pharynx normal, moist mucous membranes Neck Exam: normal inspection, non-tender, supple, full range of motion Respiratory Exam: diminished breath sounds, prolonged expirations, crackles/rales, No respiratory distress Cardiovascular Exam: regular rate/rhythm, normal heart sounds Gastrointestinal/Abdomen Exam: soft, No tenderness, No mass Pelvic Exam: deferred Rectal Exam: deferred Back Exam: normal inspection, normal range of motion, No CVA tenderness, No vertebral tenderness Extremity Exam: normal inspection, normal range of motion Skin Exam: normal color, warm, dry Final Diagnosis/Problem List - Final Discharge Diagnosis/Problem (1) COPD exacerbation Status: Acute Code(s): J44.1 - CHRONIC OBSTRUCTIVE PULMONARY DISEASE W (ACUTE) EXACERBATION (2) COVID-19 Status: Acute Code(s): U07.1 - COVID-19 - Discharge Discharge Date: 01/02/22 Disposition: Home, Self-Care Condition: Stable Prescriptions: New Prednisone 20 mg [Deltasone 20 mg] 0 mg PO UD 10 Days #10 tablet Continue ALPRAZolam [Alprazolam] 0.5 mg PO TID PRN PRN Reason: Anxiety Furosemide 40 mg [Lasix 40 MG] 40 mg PO DAILY Albuterol Sulfate [Albuterol Sulfate Hfa] 2 puff PO Q4-6HPRN PRN PRN Reason: Shortness Of Breath Tramadol HCl 50 mg [Ultram 50 mg] 50 mg PO TID PRN PRN Reason: Pain PARoxetine HCl [Paxil] 40 mg PO DAILY Omeprazole 40 mg PO BID Gabapentin 300 mg PO TID Atorvastatin Calcium [Lipitor] 40 mg PO DAILY Diltiazem HCl [Cardizem] 30 mg PO TID Metoprolol Succinate 25 mg Xl* [Toprol-Xl 25MG Tablets] 25 mg PO DAILY Potassium Chloride [Klor-Con 10] 10 meq PO BID Instructions: Oxygen Therapy, Adult (DC), COVID-19 (DC)
== END 2022-01-02 14:15 | disposition home or self-care (01) ==
LOC: ED 09:58 → MED SURG 12:55
PROVIDERS: ADMIT Family Medicine; ATTEND Family Medicine
DX: J44.1 Chronic obstructive pulmonary disease with (acute) exacerbation (principal); U07.1 COVID-19; R07.9 Chest pain, unspecified; R09.02 Hypoxemia; E78.5 Hyperlipidemia, unspecified; Z72.0 Tobacco use; Z79.899 Other long term (current) drug therapy; Z20.828 Contact with and (suspected) exposure to other viral communicable diseases
CPT/HCPCS: 0241U; 36000; 36415; 71045; 80048; 80053; 81015; 83605; 83880; 84484; 85025; 85027; 85610; 85730; 93005; 93268; 94640; 94762; 96374; 96375; 99285; G0378; J0248; J1100; J1650; J2405; J3010; A9270-GY

== ENCOUNTER 2023-12-20 15:21 | Day surgery (SDC) | payer MEDICARE ==
[2012-05-22 22:21] VITALS: BP 93/45
[2023-12-20] MEDS ORDERED: XYLOCAINE-MPF 1% 5ML SDV IJ ONE (15:22)
[2023-12-20] MEDS ORDERED: BUPIVACAINE 0.5% VIAL IJ ONE (15:22)
[2023-12-20] MEDS ORDERED: Depo-Medrol 40 MG/ML IM ONE (15:22)
--- NOTE | 2023-12-20 19:15 | XRAY ---
Indication: Bilateral SI joint injection. Intraoperative fluoroscopy provided for 24 seconds. 3 digital spot images submitted for interpretation demonstrates posterior needle tips projecting over the left and right SI joint. Small amount of contrast injected for needle tip placement. Correlate with intraoperative findings/report.
--- NOTE | 2023-12-21 09:28 | XRAY ---
24 seconds of fluoroscopy was used in surgery for a bilateral sacroiliac joint injection.
== END 2023-12-20 18:20 | disposition home or self-care (01) ==
LOC: SDC-PAIN 15:21
PROVIDERS: ATTEND Psychiatry & Neurology Pain Medicine
DX: M46.1 Sacroiliitis, not elsewhere classified (principal)
CPT/HCPCS: 27096; 72202; 77002; G0260; J1010; Q9966

== ENCOUNTER 2024-01-22 07:32 | Emergency (ER) | payer MEDICARE ==
--- NOTE | 2024-01-22 07:34 | ERPHSYRPT ---
- History of Present Illness Time Seen by Provider: 01/22/24 07:34 Source: patient, family, EMS, old records Exam Limitations: no limitations Physician History: This is a morbidly obese 78-year-old white female patient of Dr. Blue and pain specialist Dr. Wheatley who presents to the emergency room brought into this facility by the paramedics. Patient states that she is short of breath chronically and has wheezing chronically. She describes this time. Is been mo nths. Patient continues to smoke tobacco cigarettes. She has history of COPD and wears 2 L of oxygen via nasal cannula. Patient has a history of hyperlipidemia, anxiety, gastroesophageal reflux disease, depression and arthritis. Patient states that in the last several days she is having trouble sleeping because she falls asleep and then senses that she cannot breathe so she wakes up. She denies chest pain. She denies abdominal pain. She denies cough. She denies fever. She has had no nausea vomiting or diarrhea symptoms. Timing/Duration: worse Severity of Dyspnea-Max: mild (To moderate) Severity of Dyspnea-Current: mild (Moderate) Possible Cause: frequent episodes, chronic episodes Modifying Factors: Improves With: activity Associated Symptoms: anxiety, wheezing (Chronic), No chest pain/discomfort Allergies/Adverse Reactions: No Known Drug Allergies Allergy (Verified 01/22/24 07:37) Home Medications: Albuterol Sulfate [Albuterol Sulfate Hfa] 2 puff PO Q4-6HPRN PRN 12/30/21 [History] Atorvastatin Calcium [Lipitor] 40 mg PO DAILY 12/30/21 [History] Furosemide 40 mg [Lasix 40 MG] 40 mg PO BID 12/30/21 [History] Omeprazole 40 mg PO BID 12/30/21 [History] PARoxetine HCL [Paxil] 40 mg PO DAILY 12/30/21 [History] Alendronate Sodium 70 mg [Fosamax 70 MG] 70 mg PO WEEKLY 01/22/24 [History] Aspirin EC 81 mg [Ecotrin 81 mg] 81 mg PO DAILY 01/22/24 [History] Clopidogrel Bisulfate [PLAVIX Tablet] 75 mg PO DAILY 01/22/24 [History] Fluticasone Propion/Salmeterol [Fluticasone-Salmeterol 250-50] 1 puff PO BID 01/22/24 [History] Gabapentin [Neurontin ] 400 mg PO TID PRN 01/22/24 [History] Hydroxyzine HCl 25 mg [Atarax 25 mg] 25 mg PO QID PRN 01/22/24 [History] Magnesium Oxide 400 mg [Mag-Ox 400] 400 mg PO DAILY 01/22/24 [History] Nitroglycerin 0.4 mg Tablet [Nitrostat 0.4 MG Tablet] 0.4 mg PO Q5MIN PRN MR X 3 PRN 01/22/24 [History] Potassium Chloride [Klor-Con 8] 8 meq PO DAILY 01/22/24 [History] Prednisone 20 mg [Deltasone 20 mg] 10 mg PO DAILY 01/22/24 [History] Hx Tetanus, Diphtheria Vaccination/Date Given: Yes Hx Influenza Vaccination/Date Given: No Hx Pneumococcal Vaccination/Date Given: Yes Travel Risk - International Travel Have you traveled outside of the country in past 3 weeks: No - Emerging Infectious Disease Are you exhibiting symptoms associated with any current EIDs: No Symptoms: Shortness of Breath - Review of Systems Constitutional: No Symptoms Eyes: No Symptoms Ears, Nose, & Throat: No Symptoms Respiratory: Dyspnea, Wheezing (Chronic) Cardiac: No Symptoms Abdominal/Gastrointestinal: No Symptoms Genitourinary Symptoms: No Symptoms Musculoskeletal: No Symptoms Skin: No Symptoms Neurological: No Symptoms Psychological: No Symptoms Endocrine: No Symptoms Hematologic/Lymphatic: No Symptoms Immunological/Allergic: No Symptoms All Other Systems: Reviewed and Negative - Past Medical History Pertinent Past Medical History: Yes Neurological History: No Pertinent History, Migraines, Peripheral Neuropathy ENT History: Cataracts Cardiac History: Angina, High Cholesterol, Myocardial Infarction ([place]) Respiratory History: COPD, Pneumonia Endocrine Medical History: No Pertinent History Musculoskeletal History: Arthritis GI Medical History: Hemorrhoids, Hernia, Polyps, Ulcer History: No Pertinent History Psycho-Social History: Anxiety, Depression Female Reproductive Disorders: No Pertinent History - Past Surgical History Past Surgical History: Yes Neuro Surgical History: No Pertinent History Cardiac: No Pertinent History Respiratory: No Pertinent History Gastrointestinal: Appendectomy, Cholecystectomy Genitourinary: No Pertinent History Musculoskeletal: No Pertinent History Female Surgical History: Section, Hysterectomy Other Surgical History: RIGHT KIDNEY REMOVAL Significant Family History: no pertinent family hx - Social History Smoking Status: Current every day smoker How long have you smoked: 45+ Exposure to second hand smoke: Yes Drug Use: none Patient Lives Alone: No (Brother) - Nursing Vital Signs Nursing Vital Signs: Initial Vital Signs Temperature 97.1 F 01/22/24 07:32 Pulse Rate 80 01/22/24 07:32 Respiratory Rate 28 H 01/22/24 07:32 Blood Pressure 139/55 01/22/24 07:32 O2 Sat by Pulse Oximetry 96 01/22/24 07:32 Pain Scale Pain Intensity 0 - Physical Exam General Appearance: no apparent distress, alert, anxiety, obese Eye Exam: PERRL/EOMI, eyes nml inspection Ears, Nose, Throat Exam: hearing grossly normal, normal ENT inspection, normal p harynx Neck Exam: normal inspection, non-tender, supple, full range of motion Respiratory Exam: airway intact, rhonchi (Bilateral diffuse), No chest t enderness, No respiratory distress Cardiovascular/Chest Exam: normal heart sounds, regular rate/rhythm Abdominal/Gastrointestinal Exam: soft, normal bowel sounds, No tenderness Rectal Exam: not done Extremity Exam: non-tender, normal range of motion, normal inspection Neurologic Exam: alert, oriented x 3, cooperative, grinder outside diameter II-XII nml as tested, sensation nml Skin Exam: normal color, warm, dry Lymphatic Exam: No adenopathy SpO2 Interpretation: normal O2 Delivery: Room Air - Course Nursing assessment & vital signs reviewed: Yes EKG Interpreted by Me: RATE (76), Sinus Rhythm, LAFB, prolonged QT interval, NORMAL QRS, NORMAL ST-T, Other (No acute ischemia on today's twelve-lead EKG. When compared to 12/30/2021 twelve-lead EKG, there is new prolonged QT interval. No other changes.) Ordered Tests: Active Orders 24 hr Category Date Time Status Palliative Nurse STAT Care 01/22/24 07:37 Active EKG-ER Only STAT Care 01/22/24 07:37 Active IV Insertion STAT Care 01/22/24 07:37 Active Oxygen-ED Only Nasal Cannula 2 lpm Care 01/22/24 08:45 Active Pulse Oximetry (ED) STAT Care 01/22/24 07:37 Active CHEST 1 VIEW (PORTABLE) Stat Exams 01/22/24 09:08 Completed PULMONARY PERF VENTILATION [NUCMED] Stat Exams 01/22/24 09:07 Completed BLOOD CULTURE Stat Lab 01/22/24 08:06 Received CBC W DIFF Stat Lab 01/22/24 07:55 Completed CMP Stat Lab 01/22/24 07:55 Completed CULTURE,SPUTUM Stat Lab 01/22/24 07:37 Ordered D-DIMER QUANTITATIVE Stat Lab 01/22/24 07:55 Completed Lactic Acid Stat Lab 01/22/24 08:05 Completed MAGNESIUM Stat Lab 01/22/24 07:55 Completed NT PRO BNPII Stat Lab 01/22/24 07:55 Completed PROTIME WITH INR Stat Lab 01/22/24 07:55 Completed TROPONIN Q4H Lab 01/22/24 07:55 Completed TROPONIN Q4H Lab 01/22/24 12:00 Completed TROPONIN Q4H Lab 01/22/24 15:45 Ordered Medication Summary Generic Name Dose Route Start Last Admin Trade Name Freq PRN Reason Stop Dose Admin Sodium Chloride 500 mls @ 50 mls/hr 01/22/24 08:45 01/22/24 09:13 Sodium Chloride 0.9% 500 Ml IV 02/21/24 08:44 50 mls/hr .Q10H GISELLE Administration Discontinued Medications Generic Name Dose Route Start Last Admin Trade Name Freq PRN Reason Stop Dose Admin Furosemide 40 mg 01/22/24 09:29 01/22/24 10:30 Furosemide 40 Mg/4 Ml Vial IV 01/22/24 09:30 40 mg STAT ONE Administration Furosemide Confirm 01/22/24 10:27 Furosemide 40 Mg/4 Ml Vial Administered 01/22/24 10:28 Dose 40 mg .ROUTE .STK-MED ONE Sodium Chloride Confirm 01/22/24 08:39 Sodium Chloride 0.9% 1000 Ml Administered 01/22/24 08:40 Dose 1,000 mls @ ud .ROUTE .STK-MED ONE Lab/Rad Data: Laboratory Result Diagrams 01/22/24 07:55 01/22/24 07:55 Laboratory Results 01/22/24 01/22/24 01/22/24 Range/Units 12:00 08:20 08:05 WBC (3.98-10.04) x10^3/uL RBC (3.93-5.22) x10^6/uL Hgb (11.2-15.7) g/dL Hct (34.1-44.9) % MCV (79.4-94.8) fL MCH (25.6-32.2) pg MCHC (32.2-35.5) g/dL RDW (11.7-14.4) % Plt Count (182-369) x10^3/uL MPV (9.4-12.3) fL Gran % (34.0-71.1) % Immature Gran % (Auto) (0.001-0.429) % Nucleat RBC Rel Count (0.00-0.2) % Eos # (Auto) (0.04-0.36) x10^3/uL Immature Gran # (Auto) (0.001-0.031) x10^3u/L Absolute Lymphs (auto) (1.18-3.74) x10^3/uL Absolute Monos (auto) (0.24-0.86) x10^3/uL Absolute Nucleated RBC (0.00-0.012) x10^3u/L Lymphocytes % (19.3-51.7) % Monocytes % (4.7-12.5) % Eosinophils % (0.7-5.8) % Basophils % (0.1-1.2) % Absolute Granulocytes (1.56-6.13) x10^3/uL Basophils # (0.01-0.08) x10^3/uL PT (9.4-12.5) SECONDS INR (0.8-3.0) D-Dimer (0.0-0.50) mg/L Sodium (135-145) mmol/L Potassium (3.5-5.1) mmol/L Chloride (98-107) mmol/L Carbon Dioxide (22-30) mmol/L Anion Gap (5-15) MEQ/L BUN (7-17) mg/dL Creatinine (0.52-1.04) mg/dL Estimated GFR ML/MIN Glucose (74-106) mg/dL Lactic Acid 1.3 (0.4-2.0) Calcium (8.4-10.2) mg/dL Magnesium (1.6-2.3) mg/dL Total Bilirubin (0.2-1.3) mg/dL AST (14-36) U/L ALT (0-35) U/L Alkaline Phosphatase (38-126) U/L Troponin I < 0.012 (0.000-0.033) ng/mL NT-Pro-B Natriuret Pep (<300) pg/mL Serum Total Protein (6.3-8.2) g/dL Albumin (3.5-5.0) g/dL Influenza Type A Ag NEGATIVE (NEGATIVE) Influenza Type B Ag NEGATIVE (NEGATIVE) RSV (PCR) NEGATIVE (NEGATIVE) SARS-CoV-2 (PCR) NEGATIVE (NEGATIVE) Slides for Path Review 01/22/24 01/22/24 01/22/24 Range/Units 07:55 07:55 07:55 WBC (3.98-10.04) x10^3/uL RBC (3.93-5.22) x10^6/uL Hgb (11.2-15.7) g/dL Hct (34.1-44.9) % MCV (79.4-94.8) fL MCH (25.6-32.2) pg MCHC (32.2-35.5) g/dL RDW (11.7-14.4) % Plt Count (182-369) x10^3/uL MPV (9.4-12.3) fL Gran % (34.0-71.1) % Immature Gran % (Auto) (0.001-0.429) % Nucleat RBC Rel Count (0.00-0.2) % Eos # (Auto) (0.04-0.36) x10^3/uL Immature Gran # (Auto) (0.001-0.031) x10^3u/L Absolute Lymphs (auto) (1.18-3.74) x10^3/uL Absolute Monos (auto) (0.24-0.86) x10^3/uL Absolute Nucleated RBC (0.00-0.012) x10^3u/L Lymphocytes % (19.3-51.7) % Monocytes % (4.7-12.5) % Eosinophils % (0.7-5.8) % Basophils % (0.1-1.2) % Absolute Granulocytes (1.56-6.13) x10^3/uL Basophils # (0.01-0.08) x10^3/uL PT 13.0 H (9.4-12.5) SECONDS INR 1.21 (0.8-3.0) D-Dimer 0.76 H* (0.0-0.50) mg/L Sodium 142 (135-145) mmol/L Potassium 3.8 (3.5-5.1) mmol/L Chloride 100 (98-107) mmol/L Carbon Dioxide 36 H (22-30) mmol/L Anion Gap 9.8 (5-15) MEQ/L BUN 26 H (7-17) mg/dL Creatinine 1.33 H (0.52-1.04) mg/dL Estimated GFR 40.7 ML/MIN Glucose 102 (74-106) mg/dL Lactic Acid (0.4-2.0) Calcium 9.3 (8.4-10.2) mg/dL Magnesium 2.4 H (1.6-2.3) mg/dL Total Bilirubin 0.20 (0.2-1.3) mg/dL AST 16 (14-36) U/L ALT 14 (0-35) U/L Alkaline Phosphatase 102 (38-126) U/L Troponin I < 0.012 (0.000-0.033) ng/mL NT-Pro-B Natriuret Pep 238 (<300) pg/mL Serum Total Protein 6.4 (6.3-8.2) g/dL Albumin 3.5 (3.5-5.0) g/dL Influenza Type A Ag (NEGATIVE) Influenza Type B Ag (NEGATIVE) RSV (PCR) (NEGATIVE) SARS-CoV-2 (PCR) (NEGATIVE) Slides for Path Review 01/22/24 Range/Units 07:55 WBC 9.0 (3.98-10.04) x10^3/uL RBC 4.22 (3.93-5.22) x10^6/uL Hgb 9.1 L (11.2-15.7) g/dL Hct 32.7 L (34.1-44.9) % MCV 77.5 L (79.4-94.8) fL MCH 21.6 L (25.6-32.2) pg MCHC 27.8 L (32.2-35.5) g/dL RDW 17.7 H (11.7-14.4) % Plt Count 329 (182-369) x10^3/uL MPV 8.9 L (9.4-12.3) fL Gran % 54.1 (34.0-71.1) % Immature Gran % (Auto) 1.1 H (0.001-0.429) % Nucleat RBC Rel Count 0.0 (0.00-0.2) % Eos # (Auto) 0.16 (0.04-0.36) x10^3/uL Immature Gran # (Auto) 0.10 H (0.001-0.031) x10^3u/L Absolute Lymphs (auto) 3.31 (1.18-3.74) x10^3/uL Absolute Monos (auto) 0.54 (0.24-0.86) x10^3/uL Absolute Nucleated RBC 0.00 (0.00-0.012) x10^3u/L Lymphocytes % 36.7 (19.3-51.7) % Monocytes % 6.0 (4.7-12.5) % Eosinophils % 1.8 (0.7-5.8) % Basophils % 0.3 (0.1-1.2) % Absolute Granulocytes 4.87 (1.56-6.13) x10^3/uL Basophils # 0.03 (0.01-0.08) x10^3/uL PT (9.4-12.5) SECONDS INR (0.8-3.0) D-Dimer (0.0-0.50) mg/L Sodium (135-145) mmol/L Potassium (3.5-5.1) mmol/L Chloride (98-107) mmol/L Carbon Dioxide (22-30) mmol/L Anion Gap (5-15) MEQ/L BUN (7-17) mg/dL Creatinine (0.52-1.04) mg/dL Estimated GFR ML/MIN Glucose (74-106) mg/dL Lactic Acid (0.4-2.0) Calcium (8.4-10.2) mg/dL Magnesium (1.6-2.3) mg/dL Total Bilirubin (0.2-1.3) mg/dL AST (14-36) U/L ALT (0-35) U/L Alkaline Phosphatase (38-126) U/L Troponin I (0.000-0.033) ng/mL NT-Pro-B Natriuret Pep (<300) pg/mL Serum Total Protein (6.3-8.2) g/dL Albumin (3.5-5.0) g/dL Influenza Type A Ag (NEGATIVE) Influenza Type B Ag (NEGATIVE) RSV (PCR) (NEGATIVE) SARS-CoV-2 (PCR) (NEGATIVE) Slides for Path Review YES - Progress Progress: improved, re-examined Air Movement: fair Progress Note: 01/22/24 08:04 My medical decision making and the assignment of moderate complexity to this patient's medical issue today is based on review of the patient's past medical history, review the patient's medication list, review patient drug allergy list, history of present illness and physical findings on examination. The workup in this patient includes placement of intravenous line, chest x-ray, CBC, CMP, lactic acid level, troponin level, BNP level, viral swabs, magnesium level. Will also provide the patient with Lasix and intravenous Solu-Medrol. 01/22/24 09:49 The chest x-ray was interpreted by the radiologist. The radiologist interpretation states small left pleural effusion. No other significant findi ngs. No acute acute findings. There are chronic changes. 01/22/24 10:58 I have interpreted the patient's laboratory data results.The patient has chronic renal fThese values are changed from the Patient's past medical history. I informed the patient and her daughter that the nuclear medicine scan will be performed at approximately noon today. 01/22/24 13:44 The results of the VQ scan of this patient shows low probability for pulmonary embolus. There are findings consistent with both COPD and a left pleural effusion. This correlates with the findings on the chest x-ray. These results were interpreted by the radiologist. I reviewed the impression. 01/22/24 13:46 At the time of discharge, patient states that her shortness of breath has improved and she has no chest pain. Her oxygen saturations on 2 L is 95 to 96%. Respiratory rate is 18. Blood Culture(s) Obtained: Yes Antibiotics given: No Counseled pt/family regarding: lab results, diagnosis, rad results Medical Desision Making - Independent Historian Additional History obtained from: Family - Diagnostic Testing Diagnostic test were ordered, analyzed, and reviewed by me: Yes Radiological Interpretation: Reviewed by me, Teleradiologist Report - Risk of complications The pt has a mod risk of morbidity or mortality based on: Need for prescription drug management - Departure Departure Disposition: Home Clinical Impression: COPD exacerbation, CHF exacerbation Condition: Stable Critical Care Time: No Referrals: MANJIT BLUE [Primary Care Provider] - Follow up/PCP as directed Instructions: Chronic Obstructive Pulmonary Disease, Heart Failure Additional Instructions: Take your medications as prescribed. Call your primary care provider tomorrow, 01/23/2024, to make arrangement for follow-up appointment for further evaluation management. For 4 days only, increase her prednisone to 10 mg orally 3 times a day then decrease back to the usual dosing schedule. Use your nebulizer machine every 4 hours while awake for the next 48 hours. Prescriptions: Prednisone 10 mg [Deltasone 10 mg] 10 mg PO TID #12 tablet
[2024-01-22 07:47] VITALS: TEMP 97.1
[2024-01-22 08:10] LABS: Absolute Neutrophil Ct (ANC) 4.87 x10^3/uL (1.56-6.13); BASOPHIL % 0.3 % (0.1-1.2); Basophil (Absolute #) 0.03 x10^3/uL (0.01-0.08); Eosinophil % 1.8 % (0.7-5.8); Eosinophil (Absolute #) 0.16 x10^3/uL (0.04-0.36); Hematocrit 32.7 % (34.1-44.9); Hemoglobin 9.1 g/dL (11.2-15.7); IMMATURE GRAN % 1.1 % (0.001-0.429); Lymphocyte (Absolute #) 3.31 x10^3/uL (1.18-3.74); Lymphocytes % 36.7 % (19.3-51.7); Mean Cell Volume 77.5 fL (79.4-94.8); Mean Corpuscular Hemoglobin 21.6 pg (25.6-32.2); Mean Corpuscular Hgb Concent. 27.8 g/dL (32.2-35.5); Mean Platelet Volume 8.9 fL (9.4-12.3); Monocyte (Absolute #) 0.54 x10^3/uL (0.24-0.86); Neutrophil % 54.1 % (34.0-71.1); Platelet Count 329 x10^3/uL (182-369); Red Blood Count 4.22 x10^6/uL (3.93-5.22); Red Cell Distribution Width 17.7 % (11.7-14.4)
[2024-01-22 08:23] LABS: ALBUMIN 3.5 g/dL (3.5-5.0); BILIRUBIN,TOTAL 0.2 mg/dL (0.2-1.3); Calcium 9.3 mg/dL (8.4-10.2); Creatinine 1 1.33 mg/dL (0.52-1.04); EST GLOMERULAR FILTRATION RATE 40.7 ML/MIN; MAGNESIUM 2.4 mg/dL (1.6-2.3); Potassium 3.8 mmol/L (3.5-5.1); Total Protein 6.4 g/dL (6.3-8.2)
[2024-01-22 08:30] LABS: ANION GAP 9.8 MEQ/L (5-15)
[2024-01-22 08:32] LABS: INR 1.21 (0.8-3.0)
[2024-01-22 08:33] LABS: D-DIMER QUANTITATIVE 0.76 mg/L (0.0-0.50)
[2024-01-22 08:35] LABS: NT PRO BNPII 238 pg/mL (<300); TROPONIN < 0.012 ng/mL (0.000-0.033)
[2024-01-22] MEDS ORDERED: Sodium Chloride 0.9% 1000 ML 0 ML ONE (08:39)
[2024-01-22] MEDS ORDERED: Sodium Chloride 0.9% 500 ML 500 ML IV ONE (08:41)
[2024-01-22 08:48] LABS: INFLUENZA A NEGATIVE (NEGATIVE); INFLUENZA B NEGATIVE (NEGATIVE); RESPIRATORY SYNCTIAL VIRUS NEGATIVE (NEGATIVE); SARS-CoV-2 Xpert Express NEGATIVE (NEGATIVE)
[2024-01-22 08:53] LABS: Slide Review 1 YES
[2024-01-22] MEDS: Sodium Chloride 0.9% 500 ML 500 ML IV SCH (09:13)
--- NOTE | 2024-01-22 09:38 | XRAY ---
Indication: Short of breath. Comparison: December 30, 2021 Portable apical lordotic chest demonstrates new blunting left costophrenic angle suggesting pleural effusion/thickening. Remaining heart and right lung unremarkable. Bony thorax intact again with osteopenia.
[2024-01-22] MEDS ORDERED: Lasix 40 MG/4 ML ONE (10:27)
[2024-01-22] MEDS: Lasix 40 MG/4 ML IV ONE (10:30)
[2024-01-22 11:41] VITALS: O2SAT 95
--- NOTE | 2024-01-22 13:30 | XRAY ---
Indication: Short of breath. Elevated d-dimer. Comparison: None Patient received 5.0 mCi technetium 99 MAA for the perfusion portion of the exam. Patient inhaled 35.0 mCi aerosolized technetium 99 DTPA for the ventilation portion of the exam. Multiple planar images obtained. Perfusion images demonstrates blunting left costophrenic angle. Elsewhere no other segmental/subsegmental perfusion defects. Ventilation images demonstrates diffuse heterogeneous radiopharmaceutical activity greatest centrally favoring chronic obstructive disease. Matched blunting defect left costophrenic angle. Small amount of gastric radiopharmaceutical activity presumed from ingestion. Impression: 1. Blunting left costophrenic angle on both ventilation and perfusion images. Finding corresponds to same day chest radiograph abnormality. No ventilation perfusion mismatch. Low probability for pulmonary embolus. 2. Incidental chronic obstructive disease.
[2024-01-22 14:07] VITALS: BP 123/49; PULSE 72; RESP 14
== END 2024-01-22 14:22 | disposition home or self-care (01) ==
LOC: ED 07:32
DX: J44.1 Chronic obstructive pulmonary disease with (acute) exacerbation (principal); I50.9 Heart failure, unspecified; R06.02 Shortness of breath; E78.5 Hyperlipidemia, unspecified; Z79.52 Long term (current) use of systemic steroids; Z79.899 Other long term (current) drug therapy; Z79.02 Long term (current) use of antithrombotics/antiplatelets; Z72.0 Tobacco use; Z99.81 Dependence on supplemental oxygen
CPT/HCPCS: 0241U; 36000; 36415; 71045; 78582; 80053; 83605; 83735; 83880; 84484; 85025; 85379; 85610; 87040; 93005; 93041; 94760; 96374; 99284; A9540; A9567; J1940

== ENCOUNTER 2024-02-07 22:04 | Emergency (ER) | payer MEDICARE ==
--- NOTE | 2024-02-07 22:07 | ERPHSYRPT ---
- History of Present Illness Time Seen by Provider: 02/07/24 22:07 Source: patient, EMS, old records Exam Limitations: no limitations Physician History: This is a morbidly obese 78-year-old white female patient of Dr. Blue who was brought in to the emergency department by the paramedics secondary to shortness of breath and lethargy. Patient, per daughter to report, states that the lethargy was earlier today and by the time the paramedics had picked her up and her arrival to the emergency department patient is awake alert and joking around. Patient has a history of COPD on 2 L of oxygen via nasal cannula and her oxygen saturation level on 2 L of oxygen then is 95 to 96%. Patient, again has COPD, gastroesophageal reflux disease, CHF, hyperlipidemia, anxiety and depression. Patient also admits to having insomnia the last few nights. She tends to sleep during the day. She was here in our emergency department on 01/22/2024 for the same thing. At that visit and today's visit patient states she is chronically short of breath and has wheezing chronically. I reviewed the prior emergency department visit on 01/22/2024. And the chest x-ray showed blunting of the left costophrenic angle. A VQ scan was performed on that date as well which showed no VQ mismatch and low probability of a pulmonary embolus. Patient is on Plavix. Daughter states that she feels the patient's bilateral lower extremity swelling is worse than on 01/22/2024. Patient only has 1 kidney. She donated one of her kidneys to her daughter. Patient was recently placed on 2 times a week metolazone diuretic. Patient was also placed on Jardiance recently to help control/manage CHF. Patient does not have a fagoter Timing/Duration: today Severity of Dyspnea-Max: mild Severity of Dyspnea-Current: mild Possible Cause: frequent episodes Modifying Factors: Improves With: oxygen (Improved), rest (Improved) Associated Symptoms: chest pain/discomfort (Chronic earlier this afternoon), wheezing, ankle swelling (Worsening over the last 1 to 2 weeks) Allergies/Adverse Reactions: No Known Drug Allergies Allergy (Verified 02/07/24 22:44) Home Medications: Atorvastatin Calcium [Lipitor] 40 mg PO HS 12/30/21 [History] Furosemide 40 mg [Lasix 40 MG] 40 mg PO DAILY 12/30/21 [History] Omeprazole 40 mg PO BID 12/30/21 [History] PARoxetine HCL [Paxil] 40 mg PO DAILY 12/30/21 [History] Alendronate Sodium 70 mg [Fosamax 70 MG] 70 mg PO WEEKLY 01/22/24 [History ] Aspirin EC 81 mg [Ecotrin 81 mg] 81 mg PO DAILY 01/22/24 [History] Clopidogrel Bisulfate [PLAVIX Tablet] 75 mg PO DAILY 01/22/24 [History] Fluticasone Propion/Salmeterol [Fluticasone-Salmeterol 250-50] 2 puff PO DAILY 01/22/24 [History] Gabapentin [Neurontin ] 400 mg PO TID 01/22/24 [History] Hydroxyzine HCl 25 mg [Atarax 25 mg] 25 mg PO QID 01/22/24 [History] Magnesium Oxide 400 mg [Mag-Ox 400] 400 mg PO DAILY 01/22/24 [History] Nitroglycerin 0.4 mg Tablet [Nitrostat 0.4 MG Tablet] 0.4 mg PO Q5MIN PRN MR X 3 PRN 01/22/24 [History] Potassium Chloride [Klor-Con 8] 8 meq PO DAILY 01/22/24 [History] Empagliflozin [Jardiance] 10 mg PO DAILY 02/07/24 [History] Famotidine [Pepcid] 40 mg PO DAILY 02/07/24 [History] Hydrocodone/Acetaminophen [Hydrocodone-Acetamin 5-325 mg] 1 tab PO Q6H PRN PRN 02/07/24 [History] Prednisone 10 mg [Deltasone 10 mg] 10 mg PO DAILY 02/07/24 [History] metOLazone [Metolazone] 2.5 mg PO WEEKLY 02/07/24 [History] Hx Tetanus, Diphtheria Vaccination/Date Given: Yes Hx Influenza Vaccination/Date Given: No Hx Pneumococcal Vaccination/Date Given: Yes Travel Risk - International Travel Have you traveled outside of the country in past 3 weeks: No - Emerging Infectious Disease Are you exhibiting symptoms associated with any current EIDs: Yes Symptoms: Shortness of Breath - Review of Systems Constitutional: Weakness Eyes: No Symptoms Ears, Nose, & Throat: No Symptoms Respiratory: Dyspnea, Wheezing (Chronic) Cardiac: No Symptoms Abdominal/Gastrointestinal: No Symptoms Genitourinary Symptoms: No Symptoms Musculoskeletal: No Symptoms Skin: No Symptoms Neurological: Lethargy (More lethargic earlier today. Much improved before arrival to the emergency department) Psychological: Other (Chronic insomnia) Endocrine: No Symptoms Hematologic/Lymphatic: No Symptoms Immunological/Allergic: No Symptoms All Other Systems: Reviewed and Negative - Past Medical History Pertinent Past Medical History: Yes Neurological History: No Pertinent History, Migraines, Peripheral Neuropathy ENT History: Cataracts Cardiac History: Angina, High Cholesterol, Myocardial Infarction ([place]) Respiratory History: COPD, Pneumonia Endocrine Medical History: No Pertinent History Musculoskeletal History: Arthritis GI Medical History: Hemorrhoids, Hernia, Polyps, Ulcer History: No Pertinent History Psycho-Social History: Anxiety, Depression Female Reproductive Disorders: No Pertinent History - Past Surgical History Past Surgical History: Yes Neuro Surgical History: No Pertinent History Cardiac: No Pertinent History Respiratory: No Pertinent History Gastrointestinal: Appendectomy, Cholecystectomy Genitourinary: No Pertinent History Musculoskeletal: No Pertinent History Female Surgical History: Section, Hysterectomy Other Surgical History: RIGHT KIDNEY REMOVAL Significant Family History: no pertinent family hx - Social History Smoking Status: Current every day smoker How long have you smoked: 45+ Exposure to second hand smoke: Yes Drug Use: none Patient Lives Alone: No (Brother) - Social Determinants of Health Will the patient participate in the screening: Yes Do you worry about a steady place to live?: No In the past 12 months,have you had to go without utilities?: No Transportation Issues: No Has anyone in your support network made you feel unsafe?: No Have you or anyone in your house had to go without enough: No - Nursing Vital Signs Nursing Vital Signs: Initial Vital Signs Temperature 97.7 F 02/07/24 22:05 Pulse Rate 86 02/07/24 22:05 Respiratory Rate 21 02/07/24 22:05 Blood Pressure 135/72 02/07/24 22:05 O2 Sat by Pulse Oximetry 95 02/07/24 22:05 Pain Scale Pain Intensity 0 - Physical Exam General Appearance: no apparent distress, alert, obese Eye Exam: PERRL/EOMI, eyes nml inspection Ears, Nose, Throat Exam: hearing grossly normal, normal ENT inspection, normal pharynx Neck Exam: normal inspection, non-tender, supple, full range of motion Respiratory Exam: rhonchi (Bilateral diffuse), wheezing (Bilateral diffuse) Cardiovascular/Chest Exam: normal heart sounds, regular rate/rhythm Abdominal/Gastrointestinal Exam: soft, normal bowel sounds, No tenderness Extremity Exam: normal range of motion, pedal edema (Bilateral feet and ankles 1+ edema) Neurologic Exam: alert, oriented x 3, cooperative, transfusion nurse II-XII nml as tested, normal mood/affect, sensation nml Skin Exam: normal color, warm, dry Lymphatic Exam: No adenopathy SpO2 Interpretation: normal O2 Delivery: Room Air - Course Nursing assessment & vital signs reviewed: Yes EKG Interpreted by Me: RATE ([id number]), Sinus Rhythm, LAFB, NORMAL INTERVALS, NORMAL QRS, Other (No acute ischemic changes on today's twelve-lead EKG. The patient's QTc is 445.) Ordered Tests: Active Orders 24 hr Category Date Time Status EKG-ER Only STAT Care 02/07/24 22:25 Active IV Insertion STAT Care 02/07/24 22:25 Active Pulse Oximetry (ED) STAT Care 02/07/24 22:25 Active CHEST 1 VIEW (PORTABLE) Stat Exams 02/07/24 22:26 Taken HEAD WITHOUT CONTRAST [CT] Stat Exams 02/08/24 00:21 Completed ABG [ARTERIAL BLOOD GASES] Stat Lab 02/07/24 22:27 Completed BLOOD CULTURE Stat Lab 02/07/24 02:38 Received CBC W DIFF Stat Lab 02/07/24 22:47 Completed CMP Stat Lab 02/07/24 22:47 Completed CULTURE,URINE Stat Lab 02/08/24 01:55 Received Lactic Acid Stat Lab 02/07/24 22:25 Completed MAGNESIUM Stat Lab 02/07/24 22:47 Completed MONO SCREEN Stat Lab 02/07/24 22:47 Completed NT PRO BNPII Stat Lab 02/07/24 22:47 Completed PROTIME WITH INR Stat Lab 02/07/24 22:47 Completed TROPONIN Q4H Lab 02/07/24 22:47 Completed TROPONIN Q4H Lab 02/08/24 02:38 Received TROPONIN Q4H Lab 02/08/24 06:30 Ordered UA W/RFX UR CULTURE Stat Lab 02/08/24 01:55 Completed Respiratory Therapy Assessment DAILY RT 02/08/24 02:00 Active Medication Summary Discontinued Medications Generic Name Dose Route Start Last Admin Trade Name Sheela PRN Reason Stop Dose Admin Albuterol/Ipratropium Confirm 02/08/24 01:58 Ipratropium/Albuterol Sulfate 3 Ml Ampul.Neb Administered 02/08/24 01:59 Dose 3 ml IH .STK-MED ONE Albuterol/Ipratropium 3 ml 02/08/24 02:00 02/08/24 02:01 Ipratropium/Albuterol Sulfate 3 Ml Ampul.Neb IH 02/08/24 02:01 3 ml STAT ONE Administration Ceftriaxone Sodium 1 gm in 100 mls @ 200 mls/hr 02/08/24 02:20 02/08/24 02:24 Rocephin 1 Gm / 100 Ml Nacl IV 02/08/24 02:49 200 mls/hr STAT ONE 200 mls/hr Administration Ceftriaxone Sodium Confirm 02/08/24 02:23 Rocephin 1 Gm / 100 Ml Nacl Administered 02/08/24 02:24 Dose 1 gm in 100 mls @ ud IV .STK-MED ONE Lab/Rad Data: Laboratory Result Diagrams 02/07/24 22:47 02/07/24 22:47 Laboratory Results 02/08/24 02/07/24 02/07/24 Range/Units 01:55 22:50 22:47 WBC (3.98-10.04) x10^3/uL RBC (3.93-5.22) x10^6/uL Hgb (11.2-15.7) g/dL Hct (34.1-44.9) % MCV (79.4-94.8) fL MCH (25.6-32.2) pg MCHC (32.2-35.5) g/dL RDW (11.7-14.4) % Plt Count (182-369) x10^3/uL MPV (9.4-12.3) fL Gran % (34.0-71.1) % Immature Gran % (Auto) (0.001-0.429) % Nucleat RBC Rel Count (0.00-0.2) % Eos # (Auto) (0.04-0.36) x10^3/uL Immature Gran # (Auto) (0.001-0.031) x10^3u/L Absolute Lymphs (auto) (1.18-3.74) x10^3/uL Absolute Monos (auto) (0.24-0.86) x10^3/uL Absolute Nucleated RBC (0.00-0.012) x10^3u/L Lymphocytes % (19.3-51.7) % Monocytes % (4.7-12.5) % Eosinophils % (0.7-5.8) % Basophils % (0.1-1.2) % Absolute Granulocytes (1.56-6.13) x10^3/uL Basophils # (0.01-0.08) x10^3/uL PT (9.4-12.5) SECONDS INR (0.8-3.0) Puncture Site pCO2 (35-45) mmHg pO2 (75-100) mmHg Base Excess (-2.0-2.0) O2 Saturation (94-100) g/dF ABG pH (7.35-7.45) ABG HCO3 (22-28) ABG O2 Sat (Measured) (95-100) % Irvin Test A-a Gradient a/A Ratio Hemoglobin Carboxyhemoglobin (0.0-6.9) % THgb Methemoglobin (1.4-1.5) % Potassium (3.5-5.1) Temperature C POC O2 Flow Rate % Sodium (135-145) mmol/L Chloride (98-107) mmol/L Carbon Dioxide (22-30) mmol/L Anion Gap (5-15) MEQ/L BUN (7-17) mg/dL Creatinine (0.52-1.04) mg/dL Estimated GFR ML/MIN Glucose (74-106) mg/dL Lactic Acid (0.4-2.0) Calcium (8.4-10.2) mg/dL Magnesium (1.6-2.3) mg/dL Total Bilirubin (0.2-1.3) mg/dL AST (14-36) U/L ALT (0-35) U/L Alkaline Phosphatase (38-126) U/L Ammonia < 9 L (9-30) umol/L Troponin I (0.000-0.033) ng/mL NT-Pro-B Natriuret Pep (<300) pg/mL Serum Total Protein (6.3-8.2) g/dL Albumin (3.5-5.0) g/dL Urine Color Yellow (Yellow) Urine Appearance Cloudy A (Clear) Urine pH 6.0 (4.6-8.0) Ur Specific [place] 1.020 (1.005-1.030) Urine Protein Negative (Negative) Urine Glucose (UA) 500 A (Negative) mg/dL Urine Ketones Negative (Negative) Urine Blood Negative (Negative) Urine Nitrite Negative (Negative) Urine Bilirubin Negative (Negative) Urine Urobilinogen 0.2 (0.2) mg/dL Ur Leukocyte Esterase Small A (Negative) U Hyaline Cast (Auto) 3-5 A (0-2) /LPF Urine Microscopic RBC 0-2 (0-5) /HPF Urine Microscopic WBC 6-10 A (0-5) /HPF Ur Epithelial Cells Many A (None Seen) /HPF Urine Bacteria Few A (None Seen) /HPF Urine Culture Reflexed YES (NO) Monoscreen (NEGATIVE) Influenza Type A Ag NEGATIVE (NEGATIVE) Influenza Type B Ag NEGATIVE (NEGATIVE) RSV (PCR) NEGATIVE (NEGATIVE) SARS-CoV-2 (PCR) NEGATIVE (NEGATIVE) 02/07/24 02/07/24 02/07/24 Range/Units 22:47 22:47 22:47 WBC (3.98-10.04) x10^3/uL RBC (3.93-5.22) x10^6/uL Hgb (11.2-15.7) g/dL Hct (34.1-44.9) % MCV (79.4-94.8) fL MCH (25.6-32.2) pg MCHC (32.2-35.5) g/dL RDW (11.7-14.4) % Plt Count (182-369) x10^3/uL MPV (9.4-12.3) fL Gran % (34.0-71.1) % Immature Gran % (Auto) (0.001-0.429) % Nucleat RBC Rel Count (0.00-0.2) % Eos # (Auto) (0.04-0.36) x10^3/uL Immature Gran # (Auto) (0.001-0.031) x10^3u/L Absolute Lymphs (auto) (1.18-3.74) x10^3/uL Absolute Monos (auto) (0.24-0.86) x10^3/uL Absolute Nucleated RBC (0.00-0.012) x10^3u/L Lymphocytes % (19.3-51.7) % Monocytes % (4.7-12.5) % Eosinophils % (0.7-5.8) % Basophils % (0.1-1.2) % Absolute Granulocytes (1.56-6.13) x10^3/uL Basophils # (0.01-0.08) x10^3/uL PT 10.7 (9.4-12.5) SECONDS INR 0.98 (0.8-3.0) Puncture Site pCO2 (35-45) mmHg pO2 (75-100) mmHg Base Excess (-2.0-2.0) O2 Saturation (94-100) g/dF ABG pH (7.35-7.45) ABG HCO3 (22-28) ABG O2 Sat (Measured) (95-100) % Irvin Test A-a Gradient a/A Ratio Hemoglobin Carboxyhemoglobin (0.0-6.9) % THgb Methemoglobin (1.4-1.5) % Potassium (3.5-5.1) Temperature C POC O2 Flow Rate % Sodium (135-145) mmol/L Chloride (98-107) mmol/L Carbon Dioxide (22-30) mmol/L Anion Gap (5-15) MEQ/L BUN (7-17) mg/dL Creatinine (0.52-1.04) mg/dL Estimated GFR ML/MIN Glucose (74-106) mg/dL Lactic Acid (0.4-2.0) Calcium (8.4-10.2) mg/dL Magnesium (1.6-2.3) mg/dL Total Bilirubin (0.2-1.3) mg/dL AST (14-36) U/L ALT (0-35) U/L Alkaline Phosphatase (38-126) U/L Ammonia (9-30) umol/L Troponin I 0.016 (0.000-0.033) ng/mL NT-Pro-B Natriuret Pep 246 (<300) pg/mL Serum Total Protein (6.3-8.2) g/dL Albumin (3.5-5.0) g/dL Urine Color (Yellow) Urine Appearance (Clear) Urine pH (4.6-8.0) Ur Specific [place] (1.005-1.030) Urine Protein (Negative) Urine Glucose (UA) (Negative) mg/dL Urine Ketones (Negative) Urine Blood (Negative) Urine Nitrite (Negative) Urine Bilirubin (Negative) Urine Urobilinogen (0.2) mg/dL Ur Leukocyte Esterase (Negative) U Hyaline Cast (Auto) (0-2) /LPF Urine Microscopic RBC (0-5) /HPF Urine Microscopic WBC (0-5) /HPF Ur Epithelial Cells (None Seen) /HPF Urine Bacteria (None Seen) /HPF Urine Culture Reflexed (NO) Monoscreen NEGATIVE (NEGATIVE) Influenza Type A Ag (NEGATIVE) Influenza Type B Ag (NEGATIVE) RSV (PCR) (NEGATIVE) SARS-CoV-2 (PCR) (NEGATIVE) 02/07/24 02/07/24 02/07/24 Range/Units 22:47 22:47 22:27 WBC 15.5 H (3.98-10.04) x10^3/uL RBC 4.50 (3.93-5.22) x10^6/uL Hgb 9.8 L (11.2-15.7) g/dL Hct 33.6 L (34.1-44.9) % MCV 74.7 L (79.4-94.8) fL MCH 21.8 L (25.6-32.2) pg MCHC 29.2 L (32.2-35.5) g/dL RDW 17.9 H (11.7-14.4) % Plt Count 345 (182-369) x10^3/uL MPV 9.5 (9.4-12.3) fL Gran % 86.0 H (34.0-71.1) % Immature Gran % (Auto) 0.6 H (0.001-0.429) % Nucleat RBC Rel Count 0.0 (0.00-0.2) % Eos # (Auto) 0.05 (0.04-0.36) x10^3/uL Immature Gran # (Auto) 0.10 H (0.001-0.031) x10^3u/L Absolute Lymphs (auto) 1.39 (1.18-3.74) x10^3/uL Absolute Monos (auto) 0.59 (0.24-0.86) x10^3/uL Absolute Nucleated RBC 0.00 (0.00-0.012) x10^3u/L Lymphocytes % 9.0 L (19.3-51.7) % Monocytes % 3.8 L (4.7-12.5) % Eosinophils % 0.3 L (0.7-5.8) % Basophils % 0.3 (0.1-1.2) % Absolute Granulocytes 13.35 H (1.56-6.13) x10^3/uL Basophils # 0.05 (0.01-0.08) x10^3/uL PT (9.4-12.5) SECONDS INR (0.8-3.0) Puncture Site LBA pCO2 55 H (35-45) mmHg pO2 76 (75-100) mmHg Base Excess 25.2 H (-2.0-2.0) O2 Saturation 92.8 L (94-100) g/dF ABG pH 7.57 H* (7.35-7.45) ABG HCO3 50.4 H* (22-28) ABG O2 Sat (Measured) 97.5 (95-100) % Irvin Test yes A-a Gradient 55 a/A Ratio 0.58 Hemoglobin 10.3 Carboxyhemoglobin 3.9 (0.0-6.9) % THgb Methemoglobin 1.0 L (1.4-1.5) % Potassium 4.0 4.1 (3.5-5.1) Temperature 37.0 C POC O2 Flow Rate 28 % Sodium 136 (135-145) mmol/L Chloride 86 L (98-107) mmol/L Carbon Dioxide 39 H (22-30) mmol/L Anion Gap 15.0 (5-15) MEQ/L BUN 85 H (7-17) mg/dL Creatinine 2.15 H (0.52-1.04) mg/dL Estimated GFR 22.9 ML/MIN Glucose 126 H (74-106) mg/dL Lactic Acid (0.4-2.0) Calcium 9.7 (8.4-10.2) mg/dL Magnesium 3.0 H (1.6-2.3) mg/dL Total Bilirubin 0.20 (0.2-1.3) mg/dL AST 24 (14-36) U/L ALT 22 (0-35) U/L Alkaline Phosphatase 118 (38-126) U/L Ammonia (9-30) umol/L Troponin I (0.000-0.033) ng/mL NT-Pro-B Natriuret Pep (<300) pg/mL Serum Total Protein 6.7 (6.3-8.2) g/dL Albumin 3.8 (3.5-5.0) g/dL Urine Color (Yellow) Urine Appearance (Clear) Urine pH (4.6-8.0) Ur Specific [place] (1.005-1.030) Urine Protein (Negative) Urine Glucose (UA) (Negative) mg/dL Urine Ketones (Negative) Urine Blood (Negative) Urine Nitrite (Negative) Urine Bilirubin (Negative) Urine Urobilinogen (0.2) mg/dL Ur Leukocyte Esterase (Negative) U Hyaline Cast (Auto) (0-2) /LPF Urine Microscopic RBC (0-5) /HPF Urine Microscopic WBC (0-5) /HPF Ur Epithelial Cells (None Seen) /HPF Urine Bacteria (None Seen) /HPF Urine Culture Reflexed (NO) Monoscreen (NEGATIVE) Influenza Type A Ag (NEGATIVE) Influenza Type B Ag (NEGATIVE) RSV (PCR) (NEGATIVE) SARS-CoV-2 (PCR) (NEGATIVE) 02/07/24 Range/Units 22:25 WBC (3.98-10.04) x10^3/uL RBC (3.93-5.22) x10^6/uL Hgb (11.2-15.7) g/dL Hct (34.1-44.9) % MCV (79.4-94.8) fL MCH (25.6-32.2) pg MCHC (32.2-35.5) g/dL RDW (11.7-14.4) % Plt Count (182-369) x10^3/uL MPV (9.4-12.3) fL Gran % (34.0-71.1) % Immature Gran % (Auto) (0.001-0.429) % Nucleat RBC Rel Count (0.00-0.2) % Eos # (Auto) (0.04-0.36) x10^3/uL Immature Gran # (Auto) (0.001-0.031) x10^3u/L Absolute Lymphs (auto) (1.18-3.74) x10^3/uL Absolute Monos (auto) (0.24-0.86) x10^3/uL Absolute Nucleated RBC (0.00-0.012) x10^3u/L Lymphocytes % (19.3-51.7) % Monocytes % (4.7-12.5) % Eosinophils % (0.7-5.8) % Basophils % (0.1-1.2) % Absolute Granulocytes (1.56-6.13) x10^3/uL Basophils # (0.01-0.08) x10^3/uL PT (9.4-12.5) SECONDS INR (0.8-3.0) Puncture Site pCO2 (35-45) mmHg pO2 (75-100) mmHg Base Excess (-2.0-2.0) O2 Saturation (94-100) g/dF ABG pH (7.35-7.45) ABG HCO3 (22-28) ABG O2 Sat (Measured) (95-100) % Irvin Test A-a Gradient a/A Ratio Hemoglobin Carboxyhemoglobin (0.0-6.9) % THgb Methemoglobin (1.4-1.5) % Potassium (3.5-5.1) Temperature C POC O2 Flow Rate % Sodium (135-145) mmol/L Chloride (98-107) mmol/L Carbon Dioxide (22-30) mmol/L Anion Gap (5-15) MEQ/L BUN (7-17) mg/dL Creatinine (0.52-1.04) mg/dL Estimated GFR ML/MIN Glucose (74-106) mg/dL Lactic Acid 1.4 (0.4-2.0) Calcium (8.4-10.2) mg/dL Magnesium (1.6-2.3) mg/dL Total Bilirubin (0.2-1.3) mg/dL AST (14-36) U/L ALT (0-35) U/L Alkaline Phosphatase (38-126) U/L Ammonia (9-30) umol/L Troponin I (0.000-0.033) ng/mL NT-Pro-B Natriuret Pep (<300) pg/mL Serum Total Protein (6.3-8.2) g/dL Albumin (3.5-5.0) g/dL Urine Color (Yellow) Urine Appearance (Clear) Urine pH (4.6-8.0) Ur Specific [place] (1.005-1.030) Urine Protein (Negative) Urine Glucose (UA) (Negative) mg/dL Urine Ketones (Negative) Urine Blood (Negative) Urine Nitrite (Negative) Urine Bilirubin (Negative) Urine Urobilinogen (0.2) mg/dL Ur Leukocyte Esterase (Negative) U Hyaline Cast (Auto) (0-2) /LPF Urine Microscopic RBC (0-5) /HPF Urine Microscopic WBC (0-5) /HPF Ur Epithelial Cells (None Seen) /HPF Urine Bacteria (None Seen) /HPF Urine Culture Reflexed (NO) Monoscreen (NEGATIVE) Influenza Type A Ag (NEGATIVE) Influenza Type B Ag (NEGATIVE) RSV (PCR) (NEGATIVE) SARS-CoV-2 (PCR) (NEGATIVE) - Progress Progress: improved, re-examined Air Movement: fair Progress Note: 02/07/24 22:35 My medical decision making and the assignment of moderate complexity to this patient's medical issue today is based on review of the patient's past medical history, review the patient's medication list, review of the patient's drug allergy list, history present illness and physical findings on examination. The workup in this patient includes placement of intravenous line, CBC, CMP, BNP, ammonia level, troponin level, twelve-lead EKG, magnesium, chest x-ray, viral sw abs, monotest, respiratory therapy evaluation, ABG 02/07/24 22:36 Differential diagnosis includes but is not limited to myocardial infarction, CHF exacerbation, COPD exacerbation, pneumonia, arrhythmia, electrolyte abnormalities 02/08/24 02:21 I interpreted the patient's laboratory data results. Patient has a leukocytosis, patient has a urinary tract infection. She has metabolic alkalosis and appears she has acute on chronic renal failure as well. 02/08/24 02:28 CT scan of the head without contrast was interpreted by the radiologist and I reviewed the impression. The impression states age-appropriate senile changes. No acute abnormalities. 02/08/24 02:30 I interpreted the patient's preliminary report of her chest x-ray. The pleural effusions appear to be cleared. There also appears to be bibasilar atelectasis versus fluid versus early infiltrate 02/08/24 02:51 Transfer center at [facility] was contacted. The patient history, presenting complaint and clinical impressions were provided. The transfer center attendant auto accepted this patient. Dr. Renato Graves is the accepting physician. Blood Culture(s) Obtained: Yes Antibiotics given: Yes Counseled pt/family regarding: lab results, diagnosis, rad results Medical Desision Making - Independent Historian Additional History obtained from: Family - Diagnostic Testing Diagnostic test were ordered, analyzed, and reviewed by me: Yes Radiological Interpretation: Interpreted by me, Reviewed by me, Teleradiologist Report - Risk of complications The pt has a high risk of morbidity or mortality based on: Decision regarding hospitilization or escalation of hosp level of care - Departure Departure Disposition: Transfer Clinical Impression: Leukocytosis, UTI (urinary tract infection), Bilateral lower extremity edema, Metabolic alkalosis, Acute on chronic renal failure Condition: Fair Critical Care Time: No Referrals: MANJIT BLUE [Primary Care Provider] - Follow up/PCP as directed
[2024-02-07 22:31] VITALS: TEMP 97.7
[2024-02-07 22:47] LABS: A-aADO2 55; ABG HEMOGLOBIN 10.3; ABG POTASSIUM 4.1 (3.5-5.1); ARTERIAL BLD GAS O2 SATURATION 97.5 % (95-100); ARTERIAL BLOOD GAS BASE EXCESS 25.2 (-2.0-2.0); ARTERIAL BLOOD GAS FIO2 28 %; ARTERIAL BLOOD GAS PCO2 55 mmHg (35-45); ARTERIAL BLOOD GAS PO2 76 mmHg (75-100); CARBOXYHEMOGLOBIN 3.9 % THgb (0.0-6.9); HCO3- 50.4 (22-28); HGB O2 SAT 92.8 g/dF (94-100); paO2 pAO1 0.58
[2024-02-07 22:48] LABS: ARTERIAL BLOOD GAS pH 7.57 (7.35-7.45)
[2024-02-07 22:49] LABS: ABG SITE LBA; ALLEN TEST OK? yes
[2024-02-07 22:52] LABS: Absolute Neutrophil Ct (ANC) 13.35 x10^3/uL (1.56-6.13); BASOPHIL % 0.3 % (0.1-1.2); Basophil (Absolute #) 0.05 x10^3/uL (0.01-0.08); Eosinophil % 0.3 % (0.7-5.8); Eosinophil (Absolute #) 0.05 x10^3/uL (0.04-0.36); Hematocrit 33.6 % (34.1-44.9); Hemoglobin 9.8 g/dL (11.2-15.7); IMMATURE GRAN % 0.6 % (0.001-0.429); Lymphocyte (Absolute #) 1.39 x10^3/uL (1.18-3.74); Mean Cell Volume 74.7 fL (79.4-94.8); Mean Corpuscular Hemoglobin 21.8 pg (25.6-32.2); Mean Corpuscular Hgb Concent. 29.2 g/dL (32.2-35.5); Mean Platelet Volume 9.5 fL (9.4-12.3); Monocyte (Absolute #) 0.59 x10^3/uL (0.24-0.86); Monocytes % 3.8 % (4.7-12.5); Platelet Count 345 x10^3/uL (182-369); Red Cell Distribution Width 17.9 % (11.7-14.4); White Blood Count 15.5 x10^3/uL (3.98-10.04)
[2024-02-07 23:05] LABS: ALBUMIN 3.8 g/dL (3.5-5.0); BILIRUBIN,TOTAL 0.2 mg/dL (0.2-1.3); Calcium 9.7 mg/dL (8.4-10.2); Creatinine 1 2.15 mg/dL (0.52-1.04); EST GLOMERULAR FILTRATION RATE 22.9 ML/MIN; INR 0.98 (0.8-3.0); PROTIME 10.7 SECONDS (9.4-12.5); Total Protein 6.7 g/dL (6.3-8.2)
[2024-02-07 23:17] LABS: TROPONIN 0.016 ng/mL (0.000-0.033)
[2024-02-07 23:39] LABS: INFLUENZA A NEGATIVE (NEGATIVE); INFLUENZA B NEGATIVE (NEGATIVE); RESPIRATORY SYNCTIAL VIRUS NEGATIVE (NEGATIVE); SARS-CoV-2 Xpert Express NEGATIVE (NEGATIVE)
--- NOTE | 2024-02-08 01:12 | XRAY ---
CLINICAL HISTORY: Altered mental status COMPARISON: None. TECHNIQUE: An axial non-contrast CT scan of the brain was performed from the skull base to the high parietal region with multiple reformats. One of the following dose reduction techniques was utilized for this exam: Automated exposure control, adjustment of the mA and/or kV according to patient size, and use of iterative reconstruction, CTDI:53.92mGy; DLP: 991mGy-cm. FINDINGS: There are tiny ill-defined hypodense areas noted in the subcortical white matter and the periventricular region bilaterally, suggestive of mild-moderate microvascular ischemic changes. The ventricular system, cortical sulci, and basal cisterns are prominent and consistent with senile changes. Cruz-white matter differentiation is maintained. No established territorial infarction was identified. No evidence of intracerebral hemorrhage. No extra axial hematoma. No other focal parenchymal abnormalities are demonstrated. No midline shifts or deformity. Normal CT appearance of the posterior fossa structures namely the cerebellar hemispheres, brainstem, and cerebellar peduncles. The cerebello-pontine angles are clear. The pituitary gland, the pineal gland, and the optic chiasm are unremarkable. The osseous structures in the skull are unremarkable. IMPRESSION: 1. The above-mentioned findings are suggestive of age appropriate senile changes. 2. No other focal parenchymal abnormalities or acute hemorrhage are demonstrated. 3. Considering patient's history, if clinically indicated, an MRI brain is recommended for further evaluation. Electronically Signed by: Steven Benedict MD. (02/08/2024 01:08:33 EDT)
[2024-02-08] MEDS ORDERED: DUONEB 0.5-3 MG/3 ml Neb IH ONE (01:58)
[2024-02-08] MEDS: DUONEB 0.5-3 MG/3 ml Neb IH ONE (02:01)
[2024-02-08 02:08] LABS: Appearance Cloudy (Clear); Bacteria Few /HPF (None Seen); Bilirubin Negative (Negative); Blood Negative (Negative); Epithelial Cells Many /HPF (None Seen); Glucose, Urine 500 mg/dL (Negative); Ketones Negative (Negative); Leukocyte Esterase Small (Negative); Nitrite Negative (Negative); Protein,Urine Dip Negative (Negative); RBC 0-2 /HPF (0-5); Urobilinogen 0.2 mg/dL (0.2)
[2024-02-08 02:13] LABS: ADD URINE CULTURE? YES (NO)
[2024-02-08] MEDS ORDERED: ROCEPHIN 1 GM / 100 ML NaCl 1 GM/100 ML IVPB IV ONE (02:23)
[2024-02-08] MEDS: ROCEPHIN 1 GM / 100 ML NaCl 1 GM/100 ML IVPB IV ONE (02:24)
[2024-02-08 04:59] VITALS: O2SAT 96
[2024-02-08 06:18] VITALS: PULSE 78; RESP 16
[2024-02-08 06:41] VITALS: BP 165/72
--- NOTE | 2024-02-08 08:34 | XRAY ---
Indication: Short of breath. Chest pain. Comparison: January 22, 2024 Portable chest now demonstrates minimal left lung base infiltrate versus atelectasis. Remaining heart and lungs unremarkable. Bony thorax intact again with osteopenia and degenerative changes.
== END 2024-02-08 06:38 | disposition short-term general hospital (02) ==
LOC: ED 22:04
DX: N39.0 Urinary tract infection, site not specified (principal); D72.829 Elevated white blood cell count, unspecified; R60.0 Localized edema; E87.3 Alkalosis; N17.9 Acute kidney failure, unspecified; N18.9 Chronic kidney disease, unspecified; R06.02 Shortness of breath; R53.83 Other fatigue; I50.9 Heart failure, unspecified; E78.5 Hyperlipidemia, unspecified; Z79.02 Long term (current) use of antithrombotics/antiplatelets; Z79.891 Long term (current) use of opiate analgesic; Z79.52 Long term (current) use of systemic steroids; Z79.899 Other long term (current) drug therapy; Z72.0 Tobacco use; Z99.81 Dependence on supplemental oxygen
CPT/HCPCS: 0241U; 36000; 36415; 36600; 70450; 71045; 80053; 81001; 82140; 82375; 82803; 83605; 83735; 83880; 84484; 85025; 85610; 86308; 87040; 87086; 93005; 94640; 94760; 99285; J0696; A9270-GY

== ENCOUNTER 2024-03-03 18:56 | Emergency (ER) | payer MEDICARE ==
[2024-03-03 19:23] VITALS: RESP 22; TEMP 98.4
--- NOTE | 2024-03-03 19:36 | ERPHSYRPT ---
- History of Present Illness Time Seen by Provider: 03/03/24 19:25 Source: patient, family Exam Limitations: no limitations Patient Subjective Stated Complaint: pt here for burning with urination, she had ad fc placed about 4 weeks for urinary rentiion, denies fever. Triage Nursing Assessment: pt alert, arrived per wc, home o2 in place,resp easy, has congested sounding cough. edema to lower legs that is normal for her Physician History: 78yo f presents via private vehicle for b/l LE edema and dysuria x 3d. Pt's csear hter reports she was admitted to [facility] 4wks ago for urinary retention and fluid overload, was sent to SNF for rehab and discharged on 03/01/24. Pt had urinary catheter placed 5d ago and reports persistent discomfort at the insertion site as well as burning when she urinates. Pt reports some increased orthopnea and sob since her discharge as well. Pt wears 3L O2 at baseline. Pt denies any fevers, cp, abdominal pain, n/v/d. Timing/Duration: day(s) (4) Activites at Onset: none Quality: burning Onset Location: urethral Pain Radiation: none Severity of Pain-Max: moderate Severity of Pain-Current: moderate Prior abdominal problems: other (catheter placement) Modifying Factors: Improves With: nothing Associated Symptoms: dysuria, swelling, No abdominal pain, No fever, No chills, No nausea, No vomiting, No vaginal discharge Allergies/Adverse Reactions: No Known Drug Allergies Allergy (Verified 03/03/24 19:08) Home Medications: Atorvastatin Calcium [Lipitor] 40 mg PO HS 12/30/21 [History] Furosemide 40 mg [Lasix 40 MG] 40 mg PO DAILY 12/30/21 [History] Omeprazole 40 mg PO BID 12/30/21 [History] PARoxetine HCL [Paxil] 40 mg PO DAILY 12/30/21 [History] Alendronate Sodium 70 mg [Fosamax 70 MG] 70 mg PO WEEKLY 01/22/24 [History] Aspirin EC 81 mg [Ecotrin 81 mg] 81 mg PO DAILY 01/22/24 [History] Clopidogrel Bisulfate [PLAVIX Tablet] 75 mg PO DAILY 01/22/24 [History] Fluticasone Propion/Salmeterol [Fluticasone-Salmeterol 250-50] 2 puff PO DAILY 01/22/24 [History] Gabapentin [Neurontin ] 400 mg PO TID 01/22/24 [History] Hydroxyzine HCl 25 mg [Atarax 25 mg] 25 mg PO QID 01/22/24 [History] Magnesium Oxide 400 mg [Mag-Ox 400] 400 mg PO DAILY 01/22/24 [History] Nitroglycerin 0.4 mg Tablet [Nitrostat 0.4 MG Tablet] 0.4 mg PO Q5MIN PRN MR X 3 PRN 01/22/24 [History] Potassium Chloride [Klor-Con 8] 8 meq PO DAILY 01/22/24 [History] Empagliflozin [Jardiance] 10 mg PO DAILY 02/07/24 [History] Famotidine [Pepcid] 40 mg PO DAILY 02/07/24 [History] Hydrocodone/Acetaminophen [Hydrocodone-Acetamin 5-325 mg] 1 tab PO Q6H PRN PRN 02/07/24 [History] Prednisone 10 mg [Deltasone 10 mg] 10 mg PO DAILY 02/07/24 [History] metOLazone [Metolazone] 2.5 mg PO WEEKLY 02/07/24 [History] Hx Tetanus, Diphtheria Vaccination/Date Given: No Hx Influenza Vaccination/Date Given: No Hx Pneumococcal Vaccination/Date Given: Yes Travel Risk - International Travel Have you traveled outside of the country in past 3 weeks: No - Emerging Infectious Disease Are you exhibiting symptoms associated with any current EIDs: No Symptoms: Shortness of Breath - Review of Systems Constitutional: No Symptoms Respiratory: Dyspnea, Wheezing, No Cough, No Stridor Cardiac: Edema, Orthopnea, No Chest Pain, No Palpitations, No Syncope Abdominal/Gastrointestinal: No Symptoms Genitourinary Symptoms: Dysuria, Hematuria, No Flank Pain, No Vaginal Bleeding, No Vaginal Discharge - Past Medical History Pertinent Past Medical History: Yes Neurological History: No Pertinent History, Migraines, Peripheral Neuropathy ENT History: Cataracts Cardiac History: Angina, High Cholesterol, Myocardial Infarction (HI) Respiratory History: COPD, Pneumonia Endocrine Medical History: No Pertinent History Musculoskeletal History: Arthritis GI Medical History: Hemorrhoids, Hernia, Polyps, Ulcer History: No Pertinent History Psycho-Social History: Anxiety, Depression Female Reproductive Disorders: No Pertinent History Other Medical History: PCI of the mid LAD with [address] [employer] [place] drug- eluting stent (12/26/23). - Past Surgical History Past Surgical History: Yes Neuro Surgical History: No Pertinent History Cardiac: No Pertinent History Respiratory: No Pertinent History Gastrointestinal: Appendectomy, Cholecystectomy Genitourinary: No Pertinent History Musculoskeletal: No Pertinent History Female Surgical History: Section, Hysterectomy Other Surgical History: RIGHT KIDNEY REMOVAL Significant Family History: no pertinent family hx - Social History Smoking Status: Former smoker How long have you smoked: 45+ Exposure to second hand smoke: Yes Drug Use: none Patient Lives Alone: No (Brother) - Social Determinants of Health Will the patient participate in the screening: Yes Do you worry about a steady place to live?: No Do you have any problems with any of the following?: No known problems In the past 12 months,have you had to go without utilities?: No Transportation Issues: No Has anyone in your support network made you feel unsafe?: No Have you or anyone in your house had to go without enough: No - Nursing Vital Signs Nursing Vital Signs: Initial Vital Signs Temperature 98.4 F 03/03/24 19:15 Pulse Rate 76 03/03/24 19:15 Respiratory Rate 22 03/03/24 19:15 Blood Pressure 138/54 03/03/24 19:15 O2 Sat by Pulse Oximetry 95 03/03/24 19:15 Pain Scale Pain Intensity 10 - Physical Exam General Appearance: no apparent distress, alert Respiratory Exam: airway intact, diminished breath sounds, crackles/rales (diffuse), wheezing (mild diffuse) Cardiovascular Exam: regular rate/rhythm, normal heart sounds, edema (3+ b/l LE edema from knees to feet ) SpO2: 95 Ordered Tests: Active Orders 24 hr Category Date Time Status Abad [Catheter-Baldwin Abad] STAT Care 03/03/24 20:09 Active CHEST 1 VIEW (PORTABLE) Stat Exams 03/03/24 19:29 Taken CBC W DIFF Stat Lab 03/03/24 19:59 Completed CMP Stat Lab 03/03/24 19:59 Completed CULTURE,URINE Stat Lab 03/03/24 20:30 Received NT PRO BNPII Stat Lab 03/03/24 19:59 Completed UA W/RFX UR CULTURE Stat Lab 03/03/24 20:30 Completed Respiratory Therapy Assessment DAILY RT 03/03/24 20:55 Active Medication Summary Discontinued Medications Generic Name Dose Route Start Last Admin Trade Name Sheela PRN Reason Stop Dose Admin Albuterol/Ipratropium 3 ml 03/03/24 19:57 03/03/24 20:10 Ipratropium/Albuterol Sulfate 3 Ml Ampul.Neb IH 03/03/24 19:58 3 ml STAT ONE Administration Albuterol/Ipratropium Confirm 03/03/24 20:06 Ipratropium/Albuterol Sulfate 3 Ml Ampul.Neb Administered 03/03/24 20:07 Dose 3 ml IH .STK-MED ONE Furosemide 40 mg 03/03/24 19:30 03/03/24 19:52 Furosemide 40 Mg/4 Ml Vial IV 03/03/24 19:31 40 mg STAT ONE Administration Furosemide Confirm 03/03/24 19:50 Furosemide 40 Mg/4 Ml Vial Administered 03/03/24 19:51 Dose 40 mg .ROUTE .STK-MED ONE Lidocaine HCl 200 mg 03/03/24 19:55 03/03/24 19:56 Lidocaine Hcl 20 Mg/Ml Jelly Uro-Jet TOP 03/03/24 19:56 200 mg STAT ONE Administration Lidocaine HCl Confirm 03/03/24 19:54 Lidocaine 4% Topical Solution 50 Ml Ml Administered 03/03/24 19:55 Dose 1 ml .ROUTE .STK-MED ONE Lidocaine HCl Confirm 03/03/24 19:54 Lidocaine Hcl 20 Mg/Ml Jelly Uro-Jet Administered 03/03/24 19:55 Dose 200 mg .ROUTE .STK-MED ONE Lab/Rad Data: Laboratory Result Diagrams 03/03/24 19:59 03/03/24 19:59 Laboratory Results 03/03/24 03/03/24 03/03/24 Range/Units 20:30 19:59 19:59 WBC 6.6 (3.98-10.04) x10^3/uL RBC 3.91 L (3.93-5.22) x10^6/uL Hgb 8.9 L (11.2-15.7) g/dL Hct 32.0 L (34.1-44.9) % MCV 81.8 (79.4-94.8) fL MCH 22.8 L (25.6-32.2) pg MCHC 27.8 L (32.2-35.5) g/dL RDW 22.2 H (11.7-14.4) % Plt Count 266 (182-369) x10^3/uL MPV 9.0 L (9.4-12.3) fL Gran % 66.4 (34.0-71.1) % Immature Gran % (Auto) 1.2 H (0.001-0.429) % Nucleat RBC Rel Count 0.0 (0.00-0.2) % Eos # (Auto) 0.12 (0.04-0.36) x10^3/uL Immature Gran # (Auto) 0.08 H (0.001-0.031) x10^3u/L Absolute Lymphs (auto) 1.48 (1.18-3.74) x10^3/uL Absolute Monos (auto) 0.52 (0.24-0.86) x10^3/uL Absolute Nucleated RBC 0.00 (0.00-0.012) x10^3u/L Lymphocytes % 22.4 (19.3-51.7) % Monocytes % 7.9 (4.7-12.5) % Eosinophils % 1.8 (0.7-5.8) % Basophils % 0.3 (0.1-1.2) % Absolute Granulocytes 4.40 (1.56-6.13) x10^3/uL Basophils # 0.02 (0.01-0.08) x10^3/uL Sodium 141 (135-145) mmol/L Potassium 4.0 (3.5-5.1) mmol/L Chloride 99 (98-107) mmol/L Carbon Dioxide 40 H (22-30) mmol/L Anion Gap 6.1 (5-15) MEQ/L BUN 21 H (7-17) mg/dL Creatinine 1.19 H (0.52-1.04) mg/dL Estimated GFR 46.5 ML/MIN Glucose 89 (74-106) mg/dL Calcium 9.2 (8.4-10.2) mg/dL Total Bilirubin 0.30 (0.2-1.3) mg/dL AST 22 (14-36) U/L ALT 20 (0-35) U/L Alkaline Phosphatase 104 (38-126) U/L NT-Pro-B Natriuret Pep 324 (<300) pg/mL Serum Total Protein 6.5 (6.3-8.2) g/dL Albumin 3.8 (3.5-5.0) g/dL Urine Color Yellow (Yellow) Urine Appearance Clear (Clear) Urine pH 7.0 (4.6-8.0) Ur Specific [place] <=1.005 (1.005-1.030) Urine Protein Negative (Negative) Urine Glucose (UA) Negative (Negative) mg/dL Urine Ketones Negative (Negative) Urine Blood Large A (Negative) Urine Nitrite Negative (Negative) Urine Bilirubin Negative (Negative) Urine Urobilinogen 0.2 (0.2) mg/dL Ur Leukocyte Esterase Small A (Negative) U Hyaline Cast (Auto) NONE SEEN (0-2) /LPF Urine Microscopic RBC >100 A (0-5) /HPF Urine Microscopic WBC 11-20 A (0-5) /HPF Ur Epithelial Cells None Seen (None Seen) /HPF Urine Bacteria None Seen (None Seen) /HPF Urine Culture Reflexed YES (NO) - Progress Progress: improved Air Movement: good Progress Note: pt reports significant improvement in lower abdominal discomfort since replacement of urinary catheter labs largely unremarkable, kidney function significantly improved compared to prior ED visit 4wks ago hgb 8.9 - daughter reports hgb has been trending in the 8.0 - 9.0 range for the past month urine clear following new catheter placement UA showed hematuria but not suggestive of infection pt has urology follow up scheduled on 03/08/24 at [facility] urology, has PCP follow up scheduled w/ Dr Blue on 03/11/24 plan for discharge home and instructed to keep follow up appointments as scheduled recommend taking 1 additional dose of 20mg furosemide daily for a total of 60mg daily for the next 4 days to help w/ lower extremity swelling return to ED if: develop significant shortness of breath, develop chest pain, bleeding from catheter intensifies, develop fevers, pain at catheter site becomes unbearable Blood Culture(s) Obtained: No Antibiotics given: No Counseled pt/family regarding: lab results, diagnosis, need for follow-up, rad results Medical Desision Making - Diagnostic Testing Diagnostic test were ordered, analyzed, and reviewed by me: Yes Radiological Interpretation: Interpreted by me, Reviewed by me - Risk of complications Low Risk: Low risk of morbidity from additional dx testing or treatment - Departure Departure Disposition: Home Clinical Impression: Pain in urethra, Bilateral lower extremity edema Anemia Qualifiers: Anemia type: unspecified type Qualified Code(s): D64.9 - Anemia, unspecified Hematuria Qualifiers: Hematuria type: gross Qualified Code(s): R31.0 - Gross hematuria Condition: Stable Critical Care Time: No Referrals: MANJIT BLUE [Primary Care Provider] - Follow up/PCP as directed Additional Instructions: plan for discharge home and instructed to keep follow up appointments as scheduled recommend taking 1 additional dose of 20mg furosemide daily for a total of 60mg daily for the next 4 days to help w/ lower extremity swelling return to ED if: develop significant shortness of breath, develop chest pain, bleeding from catheter intensifies, develop fevers, pain at catheter site becomes unbearable
[2024-03-03] MEDS ORDERED: Lasix 40 MG/4 ML ONE (19:50)
[2024-03-03] MEDS: Lasix 40 MG/4 ML IV ONE (19:52)
[2024-03-03] MEDS ORDERED: XYLOCAINE 2% Uro-Jet ONE (19:54)
[2024-03-03] MEDS ORDERED: XYLOCAINE 4% TOPICAL SOLUTION 50 ML ONE (19:54)
[2024-03-03] MEDS: XYLOCAINE 2% Uro-Jet TOP ONE (19:56)
[2024-03-03 20:01] LABS: BASOPHIL % 0.3 % (0.1-1.2); Basophil (Absolute #) 0.02 x10^3/uL (0.01-0.08); Eosinophil % 1.8 % (0.7-5.8); Eosinophil (Absolute #) 0.12 x10^3/uL (0.04-0.36); Hemoglobin 8.9 g/dL (11.2-15.7); IMMATURE GRAN # 0.08 x10^3u/L (0.001-0.031); IMMATURE GRAN % 1.2 % (0.001-0.429); Lymphocyte (Absolute #) 1.48 x10^3/uL (1.18-3.74); Lymphocytes % 22.4 % (19.3-51.7); Mean Cell Volume 81.8 fL (79.4-94.8); Mean Corpuscular Hemoglobin 22.8 pg (25.6-32.2); Mean Corpuscular Hgb Concent. 27.8 g/dL (32.2-35.5); Monocyte (Absolute #) 0.52 x10^3/uL (0.24-0.86); Monocytes % 7.9 % (4.7-12.5); Neutrophil % 66.4 % (34.0-71.1); Platelet Count 266 x10^3/uL (182-369); Red Blood Count 3.91 x10^6/uL (3.93-5.22); Red Cell Distribution Width 22.2 % (11.7-14.4); White Blood Count 6.6 x10^3/uL (3.98-10.04)
[2024-03-03] MEDS ORDERED: DUONEB 0.5-3 MG/3 ml Neb IH ONE (20:06)
[2024-03-03] MEDS: DUONEB 0.5-3 MG/3 ml Neb IH ONE (20:10)
[2024-03-03 20:24] LABS: ALBUMIN 3.8 g/dL (3.5-5.0); ANION GAP 6.1 MEQ/L (5-15); BILIRUBIN,TOTAL 0.3 mg/dL (0.2-1.3); Calcium 9.2 mg/dL (8.4-10.2); Creatinine 1 1.19 mg/dL (0.52-1.04); EST GLOMERULAR FILTRATION RATE 46.5 ML/MIN; Total Protein 6.5 g/dL (6.3-8.2)
[2024-03-03 20:39] LABS: Appearance Clear (Clear); Bacteria None Seen /HPF (None Seen); Bilirubin Negative (Negative); Blood Large (Negative); Epithelial Cells None Seen /HPF (None Seen); Glucose, Urine Negative (Negative); Hyaline Casts NONE SEEN /LPF (0-2); Ketones Negative (Negative); Leukocyte Esterase Small (Negative); Nitrite Negative (Negative); Protein,Urine Dip Negative (Negative); RBC >100 /HPF (0-5); Specific Gravity <=1.005 (1.005-1.030); Urobilinogen 0.2 mg/dL (0.2)
[2024-03-03 20:44] LABS: ADD URINE CULTURE? YES (NO)
[2024-03-03 21:01] LABS: Slide Review 1 YES
[2024-03-03 21:07] VITALS: O2SAT 95
[2024-03-03 21:14] VITALS: BP 125/94; PULSE 72
--- NOTE | 2024-03-04 08:12 | XRAY ---
Indication: Crackles on exam. Comparison: February 07, 2024 Portable apical lordotic chest again demonstrates minimal left lung base infiltrate/atelectasis with new tiny effusion. Remaining heart and right lung unremarkable. Bony thorax intact again with osteopenia and degenerative changes.
== END 2024-03-03 21:27 | disposition home or self-care (01) ==
LOC: ED 18:56
DX: N36.8 Other specified disorders of urethra (principal); R60.0 Localized edema; D64.9 Anemia, unspecified; R31.0 Gross hematuria; R30.0 Dysuria; E78.5 Hyperlipidemia, unspecified; Z79.02 Long term (current) use of antithrombotics/antiplatelets; Z79.84 Long term (current) use of oral hypoglycemic drugs; Z79.891 Long term (current) use of opiate analgesic; Z79.52 Long term (current) use of systemic steroids; Z79.899 Other long term (current) drug therapy; Z99.81 Dependence on supplemental oxygen
CPT/HCPCS: 36000; 36415; 51702; 71045; 80053; 81001; 83880; 85025; 87077; 87086; 87186; 94640; 96374; 99284; J1940; A9270-GY

== ENCOUNTER 2024-03-28 14:18 | Emergency (ER) | payer MEDICARE ==
--- NOTE | 2024-03-28 14:32 | ERPHSYRPT ---
- History of Present Illness Time Seen by Provider: 03/28/24 14:32 Source: patient, family Exam Limitations: no limitations Physician History: This is a morbidly obese 78-year-old white female patient of Dr. Blue who was in the CT scan suite receiving intravenous fluids before undergoing a CT scan of the abdomen pelvis with contrast. Patient only has 1 kidney. Her most recent GFR was 29.3. She was scheduled to have a CT scan abdomen pelvis to rule out bladder cancer. Patient received 215 mL of 250 mL bag of normal saline fluid when she began having coughing and shortness of breath type symptoms. I reviewed outpatient, prior labs dated 03/03/2024 I interpreted those labs. I also reviewed the impression that the radiologist gave for a chest x-ray that was done on 03/03/2024. That chest x-ray shows minimal left lung base infiltrate/atelectasis with new tiny pleural effusion. Because of the sudden onset of her coughing and shortness of breath symptoms after receiving intravenous fluid, the radiology department contacted the patient's urologist out of [facility]. The urologist told radiology staff to stop the IV fluids and to send the patient to quick care. Quick care then sent the patient to the emergency department for further evaluation and management. Patient states that she chronically has shortness of breath and chronically wheezes. Patient has a history of oxygen dependent COPD and wears 2 L of oxygen via nasal cannula and typically runs around 95 to 96%. Patient is morbidly obese. She has a history of gastroesophageal reflux disease, CHF, hyperlipidemia, anxiety and is on Plavix. On 01/22/2024, the patient underwent a VQ scan to evaluate for pulmonary embolism. That study showed a low probability for pulmonary embolism. Timing/Duration: today Severity: mild Modifying Factors: Improves With: nothing (Moderate) Associated Symptoms: shortness of breath (With associated wheezing), No cough, No chest pain Allergies/Adverse Reactions: No Known Drug Allergies Allergy (Verified 03/28/24 14:41) Home Medications: Atorvastatin Calcium [Lipitor] 40 mg PO HS 12/30/21 [History] Furosemide 40 mg [Lasix 40 MG] 60 mg PO DAILY 12/30/21 [History] Omeprazole 40 mg PO BID 12/30/21 [History] PARoxetine HCL [Paxil] 40 mg PO DAILY 12/30/21 [History] Alendronate Sodium 70 mg [Fosamax 70 MG] 70 mg PO WEEKLY 01/22/24 [History] Aspirin EC 81 mg [Ecotrin 81 mg] 81 mg PO DAILY 01/22/24 [History] Clopidogrel Bisulfate [PLAVIX Tablet] 75 mg PO DAILY 01/22/24 [History] Fluticasone Propion/Salmeterol [Fluticasone-Salmeterol 250-50] 2 puff PO DAILY 01/22/24 [History] Gabapentin [Neurontin ] 400 mg PO TID 01/22/24 [History] Hydroxyzine HCl 25 mg [Atarax 25 mg] 25 mg PO QID 01/22/24 [History] Magnesium Oxide 400 mg [Mag-Ox 400] 400 mg PO DAILY 01/22/24 [History] Nitroglycerin 0.4 mg Tablet [Nitrostat 0.4 MG Tablet] 0.4 mg PO Q5MIN PRN MR X 3 PRN 01/22/24 [History] Potassium Chloride [Klor-Con 8] 8 meq PO DAILY 01/22/24 [History] Empagliflozin [Jardiance] 10 mg PO DAILY 02/07/24 [History] Famotidine [Pepcid] 40 mg PO DAILY 02/07/24 [History] Hydrocodone/Acetaminophen [Hydrocodone-Acetamin 5-325 mg] 1 tab PO Q6H PRN PRN 02/07/24 [History] Prednisone 10 mg [Deltasone 10 mg] 10 mg PO DAILY 02/07/24 [History] metOLazone [Metolazone] 2.5 mg PO WEEKLY 02/07/24 [History] Lamotrigine [Lamotrigine ER] 25 mg PO DAILY 03/28/24 [History] Hx Tetanus, Diphtheria Vaccination/Date Given: No Hx Influenza Vaccination/Date Given: No Hx Pneumococcal Vaccination/Date Given: Yes Travel Risk - Emerging Infectious Disease Are you exhibiting symptoms associated with any current EIDs: No Symptoms: Shortness of Breath - Review of Systems Constitutional: No Symptoms Eyes: No Symptoms Ears, Nose, & Throat: No Symptoms Respiratory: Cough, Dyspnea, Wheezing Cardiac: No Symptoms, No Chest Pain Abdominal/Gastrointestinal: No Symptoms Genitourinary Symptoms: No Symptoms Musculoskeletal: No Symptoms Skin: No Symptoms Neurological: No Symptoms Psychological: No Symptoms Endocrine: No Symptoms Hematologic/Lymphatic: No Symptoms Immunological/Allergic: No Symptoms All Other Systems: Reviewed and Negative - Past Medical History Pertinent Past Medical History: Yes Neurological History: No Pertinent History, Migraines, Peripheral Neuropathy ENT History: Cataracts Cardiac History: Angina, High Cholesterol, Myocardial Infarction ([place]) Respiratory History: COPD, Pneumonia Endocrine Medical History: No Pertinent History Musculoskeletal History: Arthritis GI Medical History: Hemorrhoids, Hernia, Polyps, Ulcer History: No Pertinent History Psycho-Social History: Anxiety, Depression Female Reproductive Disorders: No Pertinent History Other Medical History: PCI of the mid LAD with 1 Medtronic Mao Fronteir drug- eluting stent (12/26/23). - Past Surgical History Past Surgical History: Yes Neuro Surgical History: No Pertinent History Cardiac: No Pertinent History Respiratory: No Pertinent History Gastrointestinal: Appendectomy, Cholecystectomy Genitourinary: No Pertinent History Musculoskeletal: No Pertinent History Female Surgical History: Section, Hysterectomy Other Surgical History: RIGHT KIDNEY REMOVAL Significant Family History: no pertinent family hx - Social History Smoking Status: Former smoker How long have you smoked: 45+ Exposure to second hand smoke: Yes Drug Use: none Patient Lives Alone: No (Brother) - Social Determinants of Health Will the patient participate in the screening: Yes Do you worry about a steady place to live?: No In the past 12 months,have you had to go without utilities?: No Transportation Issues: No Has anyone in your support network made you feel unsafe?: No Have you or anyone in your house had to go without enough: No - Nursing Vital Signs Nursing Vital Signs: Initial Vital Signs Pulse Rate 71 03/28/24 14:31 Respiratory Rate 17 03/28/24 14:31 Blood Pressure 131/52 03/28/24 14:31 O2 Sat by Pulse Oximetry 99 03/28/24 14:31 Pain Scale Pain Intensity 4 - Physical Exam General Appearance: mild distress, alert, anxiety, obese Eye Exam: PERRL/EOMI, eyes nml inspection Ears, Nose, Throat Exam: normal ENT inspection, moist mucous membranes Neck Exam: normal inspection, supple, full range of motion Respiratory Exam: airway intact, wheezing (Expiratory wheezing bilaterally and diffuse), No chest tenderness, No respiratory distress, No accessory muscle use Cardiovascular Exam: regular rate/rhythm, normal heart sounds, normal peripheral pulses Gastrointestinal/Abdomen Exam: soft, normal bowel sounds, No tenderness Pelvic Exam: not done Rectal Exam: not done Back Exam: normal inspection, normal range of motion, No CVA tenderness, No vertebral tenderness Extremity Exam: normal inspection, normal range of motion, pelvis stable Neurologic Exam: alert, oriented x 3, cooperative, transportation worker II-XII nml as tested, nml cerebellar function, nml station & gait, sensation nml Skin Exam: normal color, warm, dry Lymphatic Exam: No adenopathy SpO2 Interpretation: normal O2 Delivery: Nasal Cannula (2 L oxygen) - Course Nursing assessment & vital signs reviewed: Yes EKG Interpreted by Me: RATE (70), Sinus Rhythm, LAFB, NORMAL INTERVALS, NORMAL QRS, Other (No acute ischemia on today's twelve-lead EKG. QTc is 463) Ordered Tests: Active Orders 24 hr Category Date Time Status Shipping Support STAT Care 03/28/24 14:39 Completed EKG-ER Only STAT Care 03/28/24 14:38 Completed IV Insertion STAT Care 03/28/24 14:38 Completed Pulse Oximetry (ED) STAT Care 03/28/24 14:38 Completed CHEST 1 VIEW (PORTABLE) Stat Exams 03/28/24 14:39 Completed CBC W DIFF Stat Lab 03/28/24 14:50 Completed CMP Stat Lab 03/28/24 14:50 Completed MAGNESIUM Stat Lab 03/28/24 14:50 Completed TROPONIN Q4H Lab 03/28/24 14:50 Completed Medication Summary Discontinued Medications Generic Name Dose Route Start Last Admin Trade Name Sheela PRN Reason Stop Dose Admin Methylprednisolone Sodium 0 mg 03/28/24 16:23 03/28/24 17:17 Succinate 125 mg/ Sterile IV 03/28/24 16:24 125 mg Water 2 ml STAT ONE Administration Furosemide 40 mg 03/28/24 15:27 03/28/24 15:34 Furosemide 40 Mg/4 Ml Vial IV 03/28/24 15:28 40 mg STAT ONE Administration Furosemide Confirm 03/28/24 15:33 Furosemide 40 Mg/4 Ml Vial Administered 03/28/24 15:34 Dose 40 mg .ROUTE .STK-MED ONE Methylprednisolone Sodium Succinate Confirm 03/28/24 16:59 Methylprednis Sod Succ 125 Mg/2 Ml Vial Administered 03/28/24 17:00 Dose 125 mg .ROUTE .STK-MED ONE Potassium Chloride 20 meq 03/28/24 17:03 03/28/24 17:27 Potassium Chloride Tab 10 Meq Tab PO 03/28/24 17:04 20 meq STAT ONE Administration Potassium Chloride Confirm 03/28/24 17:26 Potassium Chloride Tab 10 Meq Tab Administered 03/28/24 17:27 Dose 20 meq .ROUTE .STK-MED ONE Sterile Water Confirm 03/28/24 16:58 Water For Injection,Sterile 10 Ml Vial Administered 03/28/24 16:59 Dose 10 ml IJ .STK-MED ONE Lab/Rad Data: Laboratory Result Diagrams 03/28/24 14:50 03/28/24 14:50 Laboratory Results 03/28/24 03/28/24 03/28/24 Range/Units 14:50 14:50 14:50 WBC (3.98-10.04) x10^3/uL RBC (3.93-5.22) x10^6/uL Hgb (11.2-15.7) g/dL Hct (34.1-44.9) % MCV (79.4-94.8) fL MCH (25.6-32.2) pg MCHC (32.2-35.5) g/dL RDW (11.7-14.4) % Plt Count (182-369) x10^3/uL MPV (9.4-12.3) fL Gran % (34.0-71.1) % Immature Gran % (Auto) (0.001-0.429) % Nucleat RBC Rel Count (0.00-0.2) % Eos # (Auto) (0.04-0.36) x10^3/uL Immature Gran # (Auto) (0.001-0.031) x10^3u/L Absolute Lymphs (auto) (1.18-3.74) x10^3/uL Absolute Monos (auto) (0.24-0.86) x10^3/uL Absolute Nucleated RBC (0.00-0.012) x10^3u/L Lymphocytes % (19.3-51.7) % Monocytes % (4.7-12.5) % Eosinophils % (0.7-5.8) % Basophils % (0.1-1.2) % Absolute Granulocytes (1.56-6.13) x10^3/uL Basophils # (0.01-0.08) x10^3/uL Sodium 138 (135-145) mmol/L Potassium 3.1 L (3.5-5.1) mmol/L Chloride 86 L (98-107) mmol/L Carbon Dioxide 42 H (22-30) mmol/L Anion Gap 13.1 (5-15) MEQ/L BUN 63 H (7-17) mg/dL Creatinine 1.81 H (0.52-1.04) mg/dL Estimated GFR 28.1 ML/MIN Glucose 142 H (74-106) mg/dL Calcium 9.5 (8.4-10.2) mg/dL Magnesium 2.6 H (1.6-2.3) mg/dL Total Bilirubin 0.40 (0.2-1.3) mg/dL AST 23 (14-36) U/L ALT 19 (0-35) U/L Alkaline Phosphatase 123 (38-126) U/L Troponin I < 0.012 (0.000-0.033) ng/mL Serum Total Protein 6.4 (6.3-8.2) g/dL Albumin 3.8 (3.5-5.0) g/dL Influenza Type A Ag NEGATIVE (NEGATIVE) Influenza Type B Ag NEGATIVE (NEGATIVE) RSV (PCR) NEGATIVE (NEGATIVE) SARS-CoV-2 (PCR) NEGATIVE (NEGATIVE) 03/28/24 Range/Units 14:50 WBC 9.5 (3.98-10.04) x10^3/uL RBC 4.33 (3.93-5.22) x10^6/uL Hgb 10.2 L (11.2-15.7) g/dL Hct 35.1 (34.1-44.9) % MCV 81.1 (79.4-94.8) fL MCH 23.6 L (25.6-32.2) pg MCHC 29.1 L (32.2-35.5) g/dL RDW 19.5 H (11.7-14.4) % Plt Count 272 (182-369) x10^3/uL MPV 8.5 L (9.4-12.3) fL Gran % 81.5 H (34.0-71.1) % Immature Gran % (Auto) 0.6 H (0.001-0.429) % Nucleat RBC Rel Count 0.0 (0.00-0.2) % Eos # (Auto) 0.25 (0.04-0.36) x10^3/uL Immature Gran # (Auto) 0.06 H (0.001-0.031) x10^3u/L Absolute Lymphs (auto) 1.11 L (1.18-3.74) x10^3/uL Absolute Monos (auto) 0.30 (0.24-0.86) x10^3/uL Absolute Nucleated RBC 0.00 (0.00-0.012) x10^3u/L Lymphocytes % 11.7 L (19.3-51.7) % Monocytes % 3.2 L (4.7-12.5) % Eosinophils % 2.6 (0.7-5.8) % Basophils % 0.4 (0.1-1.2) % Absolute Granulocytes 7.76 H (1.56-6.13) x10^3/uL Basophils # 0.04 (0.01-0.08) x10^3/uL Sodium (135-145) mmol/L Potassium (3.5-5.1) mmol/L Chloride (98-107) mmol/L Carbon Dioxide (22-30) mmol/L Anion Gap (5-15) MEQ/L BUN (7-17) mg/dL Creatinine (0.52-1.04) mg/dL Estimated GFR ML/MIN Glucose (74-106) mg/dL Calcium (8.4-10.2) mg/dL Magnesium (1.6-2.3) mg/dL Total Bilirubin (0.2-1.3) mg/dL AST (14-36) U/L ALT (0-35) U/L Alkaline Phosphatase (38-126) U/L Troponin I (0.000-0.033) ng/mL Serum Total Protein (6.3-8.2) g/dL Albumin (3.5-5.0) g/dL Influenza Type A Ag (NEGATIVE) Influenza Type B Ag (NEGATIVE) RSV (PCR) (NEGATIVE) SARS-CoV-2 (PCR) (NEGATIVE) - Progress Progress: improved Progress Note: 03/28/24 16:33 My medical decision making and the assignment of moderate complexity to this patient's medical issue today is based on review of the patient's past medical history, review of the patient's medication list, reviewed patient drug allergy list, history present illness and physical findings on examination. The workup in this patient includes placement of intravenous line, infusion of Lasix intravenously, CBC, CMP, troponin level, magnesium level, twelve-lead EKG, BNP level and chest x-ray. Differential diagnosis includes but is not limited to pneumonia, COPD exacerbation, CHF exacerbation, myocardial infarction, arrhythmia 03/28/24 16:59 The chest x-ray was interpreted by the radiologist and I reviewed the impression. The chest x-ray shows no acute cardiopulmonary process. There is minimal left lung base infiltrate/atelectasis with tiny amount of fluid present unchanged from chest x-ray dated 03/03/2024. I interpreted the patient's laboratory data results. The patient vital signs are stable and her oxygen saturation levels are now 99% on her usual oxygen via nasal cannula. I compared her old labs to today's labs and she is in her usual, typical range with a GFR of 28.1 versus 29.3 three weeks ago. Her electrolytes show a potassium of 3.1 and we will supplement her with an extra dose here in the emergency department. Her magnesium level is elevated and we will have the patient hold the next 2 doses of her magnesium medication. Counseled pt/family regarding: lab results, diagnosis, rad results Medical Desision Making - Independent Historian Additional History obtained from: Family - Diagnostic Testing Diagnostic test were ordered, analyzed, and reviewed by me: Yes Radiological Interpretation: Reviewed by me, Teleradiologist Report - Risk of complications Low Risk: Low risk of morbidity from additional dx testing or treatment - Departure Departure Disposition: Home Clinical Impression: Hypokalemia, Hypomagnesemia, Mild congestive heart failure Condition: Stable Critical Care Time: No Referrals: MANJIT BLUE [Primary Care Provider] - Follow up/PCP as directed Instructions: Heart Failure Additional Instructions: Increase your potassium pills to 2 times a day for 2 days only then restart. Stop your magnesium oxide pills for 2 days only then restart. Call your primary care provider, urologist and plant control operator tomorrow, 03/28/2024 to make arrangements for follow-up appointment for further evaluation and management.
[2024-03-28 14:58] LABS: Absolute Neutrophil Ct (ANC) 7.76 x10^3/uL (1.56-6.13); BASOPHIL % 0.4 % (0.1-1.2); Basophil (Absolute #) 0.04 x10^3/uL (0.01-0.08); Eosinophil % 2.6 % (0.7-5.8); Eosinophil (Absolute #) 0.25 x10^3/uL (0.04-0.36); Hematocrit 35.1 % (34.1-44.9); Hemoglobin 10.2 g/dL (11.2-15.7); IMMATURE GRAN # 0.06 x10^3u/L (0.001-0.031); IMMATURE GRAN % 0.6 % (0.001-0.429); Lymphocyte (Absolute #) 1.11 x10^3/uL (1.18-3.74); Lymphocytes % 11.7 % (19.3-51.7); Mean Cell Volume 81.1 fL (79.4-94.8); Mean Corpuscular Hemoglobin 23.6 pg (25.6-32.2); Mean Corpuscular Hgb Concent. 29.1 g/dL (32.2-35.5); Mean Platelet Volume 8.5 fL (9.4-12.3); Monocytes % 3.2 % (4.7-12.5); Neutrophil % 81.5 % (34.0-71.1); Platelet Count 272 x10^3/uL (182-369); Red Blood Count 4.33 x10^6/uL (3.93-5.22); Red Cell Distribution Width 19.5 % (11.7-14.4); White Blood Count 9.5 x10^3/uL (3.98-10.04)
[2024-03-28 15:05] VITALS: TEMP 97.5
--- NOTE | 2024-03-28 15:17 | XRAY ---
Indication: Cough. Comparison: March 03, 2024 Portable chest remains hyperinflated with grossly stable minimal left base infiltrate/atelectasis and blunting left costophrenic angle. Remaining heart and right lung unremarkable. No new cardiopulmonary abnormalities.
[2024-03-28 15:22] LABS: ALBUMIN 3.8 g/dL (3.5-5.0); BILIRUBIN,TOTAL 0.4 mg/dL (0.2-1.3); Calcium 9.5 mg/dL (8.4-10.2); Creatinine 1 1.81 mg/dL (0.52-1.04); EST GLOMERULAR FILTRATION RATE 28.1 ML/MIN; MAGNESIUM 2.6 mg/dL (1.6-2.3); Potassium 3.1 mmol/L (3.5-5.1); Total Protein 6.4 g/dL (6.3-8.2)
[2024-03-28] MEDS ORDERED: Lasix 40 MG/4 ML ONE (15:33)
[2024-03-28 15:34] LABS: INFLUENZA A NEGATIVE (NEGATIVE); INFLUENZA B NEGATIVE (NEGATIVE); RESPIRATORY SYNCTIAL VIRUS NEGATIVE (NEGATIVE); SARS-CoV-2 Xpert Express NEGATIVE (NEGATIVE)
[2024-03-28] MEDS: Lasix 40 MG/4 ML IV ONE (15:34)
[2024-03-28 15:35] LABS: ANION GAP 13.1 MEQ/L (5-15)
[2024-03-28] MEDS ORDERED: Sterile H2O 10 ml IJ ONE (16:58)
[2024-03-28] MEDS ORDERED: solu-MEDROL ONE (16:59)
[2024-03-28] MEDS: solu-MEDROL 125 MG, Sterile H2O 10 ml 2 ML IV ONE (17:17)
[2024-03-28 17:25] VITALS: BP 146/55; PULSE 81; RESP 17; O2SAT 95
[2024-03-28] MEDS ORDERED: Klor Con ONE (17:26)
[2024-03-28] MEDS: Klor Con PO ONE (17:27)
== END 2024-03-28 17:51 | disposition home or self-care (01) ==
LOC: ED 14:18
DX: E87.6 Hypokalemia (principal); E83.42 Hypomagnesemia; I50.9 Heart failure, unspecified; R05.1 Acute cough; R06.02 Shortness of breath; E78.5 Hyperlipidemia, unspecified; Z79.02 Long term (current) use of antithrombotics/antiplatelets; Z79.84 Long term (current) use of oral hypoglycemic drugs; Z79.52 Long term (current) use of systemic steroids; Z79.899 Other long term (current) drug therapy
CPT/HCPCS: 0241U; 36000; 36415; 71045; 80053; 83735; 84484; 85025; 93005; 93041; 94760; 96374; 99284; J1940; J2919; A9270-GY

== ENCOUNTER 2024-04-07 13:21 | Observation (INO) | payer MEDICARE ==
[2024-04-07] MEDS: DUONEB 0.5-3 MG/3 ml Neb IH ONE (14:19)
[2024-04-07] MEDS ORDERED: Zofran 4 MG/2 ML VIAL ONE (14:29)
[2024-04-07] MEDS ORDERED: SUBLIMAZE 100 MCG/2 ML ONE (14:29)
[2024-04-07 14:30] LABS: Hematocrit 36.6 % (34.1-44.9); Hemoglobin 10.8 g/dL (11.2-15.7); Mean Cell Volume 81.7 fL (79.4-94.8); Mean Corpuscular Hemoglobin 24.1 pg (25.6-32.2); Mean Corpuscular Hgb Concent. 29.5 g/dL (32.2-35.5); Mean Platelet Volume 9.1 fL (9.4-12.3); Platelet Count 287 x10^3/uL (182-369); Red Blood Count 4.48 x10^6/uL (3.93-5.22); Red Cell Distribution Width 19.1 % (11.7-14.4); White Blood Count 12.5 x10^3/uL (3.98-10.04)
[2024-04-07] MEDS: Zofran 4 MG/2 ML VIAL IV ONE (14:31)
[2024-04-07] MEDS: SUBLIMAZE 100 MCG/2 ML IV ONE (14:31)
--- NOTE | 2024-04-07 14:44 | XRAY ---
CLINICAL HISTORY: fall/facial/chest/abd/back pain COMPARISON: prior CT 02/07/2024 TECHNIQUE: An axial non-contrast CT scan of the brain was performed from the skull base to the high parietal region. One of the following dose-reduction techniques was utilized for this exam. Automated exposure control, adjustment of the mA and/or kV according to patient size, and use of iterative reconstruction. FINDINGS: Brain Parenchyma: There are a few tiny ill-defined hypodense foci noted in the subcortical white matter bilaterally, with no mass effect. Normal attenuation of the cerebellum, and brainstem. No evidence of acute infarct, hemorrhage, or mass effect. No abnormal areas of hyperattenuation. Ventricular System and Subarachnoid Spaces:: The ventricular system, cortical sulci, cerebellar folia, and basal cisterns are prominent and consistent with senile changes. No evidence of hydrocephalus. No evidence of subarachnoid hemorrhage or extra-axial fluid collections. Cerebellum and Brainstem: Normal size and signal. No masses, lesions, or areas of abnormal signal. Orbits: Normal appearance of the globes, optic nerves, and extraocular muscles. No evidence of orbital masses or abnormal signal. Sinuses: Clear paranasal sinuses. No evidence of sinusitis or mucosal thickening. Mastoid Air Cells: Clear mastoid air cells. No evidence of mastoiditis. Skull and Meninges: Normal skull morphology. IMPRESSION: 1. No acute intracranial hemorrhage or established territorial infarct. No fracture lines. 2. Mild microvascular ischemic and age-related brain involutional changes. 3. Early changes of a stroke may not be detected on a CT scan. If strong clinical suspicion of stroke then suggest MRI with diffusion-weighted imaging. 4. No significant interval changes. Electronically Signed by: Steven Benedict MD. (04/07/2024 14:40:34 EDT)
[2024-04-07 14:48] LABS: BILIRUBIN,TOTAL 0.5 mg/dL (0.2-1.3); Calcium 9.3 mg/dL (8.4-10.2); Creatinine 1 1.7 mg/dL (0.52-1.04); EST GLOMERULAR FILTRATION RATE 30.3 ML/MIN; Potassium 3.1 mmol/L (3.5-5.1); Total Protein 6.4 g/dL (6.3-8.2)
[2024-04-07 14:56] LABS: ANION GAP 17.1 MEQ/L (5-15)
--- NOTE | 2024-04-07 15:34 | XRAY ---
CLINICAL HISTORY: fall/facial/chest/abd/back pain COMPARISON: None. TECHNIQUE: CT scan of the cervical spine was performed without the administration of intravenous contrast. Contiguous axial images were obtained from the skull base to the upper thoracic spine. Coronal and sagittal reformatted images were also reviewed. One of the following dose-reduction techniques was utilized for this exam. Automated exposure control, adjustment of the mA and/or kV according to patient size, and use of iterative reconstruction. CTDI:77.43mGy, DLP: [id number]. FINDINGS: Vertebrae: Spondylodegenrative changes of the cervical spine Osteodegenrative changes of the atlanto axial articulations with osteophytic bony spur The vertebral bodies are normal in height and alignment. No evidence of acute fracture or dislocation. The cortical and trabecular bone patterns are normal. No signs of lytic or sclerotic lesions. Normal configuration of the posterior elements. Intervertebral Discs: Decreased higher of intervertebral disc spaces at multiple levels The intervertebral disc spaces are preserved. No evidence of significant disc bulging or herniation. No calcifications or ossifications are noted within the discs. Facet Joints: The facet joints are arthropathy without evidence of dislocation, subluxation, or significant degenerative changes. Neural Foramina: The neural foramina are patent bilaterally at all levels. No evidence of foraminal narrowing or nerve root compression. Prevertebral Soft Tissues: The prevertebral soft tissues are normal in thickness without evidence of mass or abnormal fluid collection. Additional Findings: No other significant findings are noted in the visualized soft tissue structures or bony elements. IMPRESSION: 1. Spondylodegenerative changes of the cervical spine 2. No evidence of acute fracture, or dislocation. Electronically Signed by: Steven Benedict MD. (04/07/2024 15:30:49 EDT)
--- NOTE | 2024-04-07 15:36 | XRAY ---
CLINICAL HISTORY: fall/facial/chest/abd/back pain COMPARISON: No prior studies available for comparison. TECHNIQUE: Non-contrast CT of the abdomen and pelvis was performed, with the following protocol: axial images, and reconstructed coronal and sagittal images. No intravenous contrast was administered. One of the following dose reduction techniques was utilized for this exam: Automated exposure control, adjustment of the mA and/or kV according to patient size, and use of iterative reconstruction. FINDINGS: Abdomen: Liver: Normal in size, shape, and density. No focal lesions, cysts, or masses were identified. Evidence of cholecystectomy. Pancreas: Pancreatic head, body, and tail are visualized and appear normal in size and density. No pancreatic masses or calcifications were noted. Spleen: Normal in size, shape, and density. No splenic lesions or masses were identified. Kidneys and Adrenal Glands: Evidence of left-sided nephrectomy with clear operative bed. The right kidney is normal in size, shape, and position. Cortical thickness is within normal limits. No renal calculi or hydronephrosis. Adrenal glands are unremarkable. Pelvis: Urinary Bladder: Normal in contour and wall thickness. No intraluminal lesions. tiny internal air focus is noted. Evidence of hysterectomy. Peritoneal and Retroperitoneal Structures: No free fluid or abnormal fluid collections were identified within the abdomen or pelvis. No lymphadenopathy was noted. Right-sided inguinal hernia containing fat. Vascular ; Atheromatous calcification of the aorta & both iliac vessels. Bowel: The visualized bowel loops are normal in caliber and appearance. No evidence of bowel obstruction or wall thickening. Bones and Soft Tissues: Non-displaced fracture of the left 11th rib. Fatty atrophic changes of the left lateral abdominal wall muscles. Spondylodegenrative changes . IMPRESSION: 1. Left 11th rib acute fracture (non-displaced). 2. Left-sided nephrectomy with clear operative bed. 3. Evidence of cholecystectomy & hysterectomy. 4. Unremarkable rest of the study. [facility] ER was called at [phone] at 2:28 PM COMPOUNDING ASSISTANT, 04/07/2024 and Marisela GUTIERREZ was informed regarding important medical findings in the report. Electronically Signed by: Steven Benedict MD. (04/07/2024 15:32:02 EDT)
--- NOTE | 2024-04-07 15:38 | XRAY ---
CLINICAL HISTORY: fall/facial/chest/abd/back pain COMPARISON: No prior studies for comparison. TECHNIQUE: Contiguous axial CT images of the chest were acquired without administration of intravenous contrast. Coronal and sagittal reconstructions were obtained. One of the following dose reduction techniques were utilized for this exam: Automated exposure control, adjustment of the mA and/or kV according to patient size, use of iterative reconstruction. FINDINGS: Lungs: No evidence of consolidation, collapse, or focal lesions. No pulmonary contusion or pneumothorax. No pulmonary nodules or masses are identified. Middle lobar, lingular & bilateral basal pulmonary atelectatic bands. bilateral pulmonary emphysematous changes. Minimal bilateral basal pleural thickening /reaction. Mediastinum: The mediastinum is normal in size and contour. No mediastinal mass or abnormal lymphadenopathy. The heart size is within normal limits. Atheromatous calcification of the aorta. Hilar Structures: The hilar structures appear normal without enlargement or abnormality. Trachea and Main Bronchi: The trachea and main bronchi are patent without evidence of obstruction or abnormality. Chest Wall: The chest wall is unremarkable with no evidence of soft tissue or bony abnormalities. Upper Abdomen: Evidence of cholecystectomy & left-sided nephrectomy. Bones: Non-displaced fracture of the posterior segment of the left 11th rib. IMPRESSION: 1. Non-displaced acute fracture of the posterior segment of the left 11th rib. 2. No pulmonary contusion or pneumothorax. 3. Middle lobar,lingular & bilateral basal pulmonary atelectatic bands. 4. Minimal bilateral basal pleural thickening /reaction. [facility] ER was called at [phone] at 2:28 PM MALTHOUSE LABORER, 04/07/2024 and Marisela GUTIERREZ was informed regarding important medical findings in the report. Electronically Signed by: Steven Benedict MD. (04/07/2024 15:35:10 EDT)
[2024-04-07 16:15] LABS: Appearance Clear (Clear); Bacteria Many /HPF (None Seen); Bilirubin Negative (Negative); Blood Negative (Negative); Epithelial Cells None Seen /HPF (None Seen); Glucose, Urine 250 mg/dL (Negative); Hyaline Casts NONE SEEN /LPF (0-2); Ketones Negative (Negative); Leukocyte Esterase Small (Negative); Nitrite Positive (Negative); Ph 7.5 (4.6-8.0); Protein,Urine Dip Negative (Negative); RBC 0-2 /HPF (0-5); Urobilinogen 0.2 mg/dL (0.2); WBC 21-50 /HPF (0-5)
[2024-04-07] MEDS ORDERED: ROCEPHIN 1 GM / 100 ML NaCl 1 GM/100 ML IVPB IV ONE (16:28)
[2024-04-07] MEDS: ROCEPHIN 1 GM / 100 ML NaCl 1 GM/100 ML IVPB IV ONE (16:29)
--- NOTE | 2024-04-07 16:43 | ERPHSYRPT ---
- History of Present Illness Time Seen by Provider: 04/07/24 13:24 Source: patient, family Exam Limitations: no limitations Patient Subjective Stated Complaint: C/O pain following a fall at home today. Patient fell in her hallway while trying to adjust the thermostat. She was up without her walker, lost her balance and fell. She hit her head, did not lose conciousness. C/O left sided rib pain. Triage Nursing Assessment: Patient arrived by family vehicle; assisted out of car by ER staff and brought back to ER in a W/C. Daughter states patient was able to walk out of the house and to the car using a walker to come to the ER. The right side of patient's face is bruised. Scattered bruising noted to BUE. Faded bruising noted to left rib area of pain. Patient indicates some of the bruising is from previous falls earlier in the week. Physician History: 78-year-old female with multiple medical problems including chronic respiratory failure secondary to COPD on 2 L oxygen, coronary artery disease with stenting, congestive heart failure, hypertension, hyperlipidemia, difficult ambulation with arthritis needed walker presented in ER after she was walking without her walker to set the thermostat, lost control and fell on the floor. She hit her right side of head while on the way down and did hit her knees as well. Patient reports moderate to severe sharp pain left lower ribs cage and left flank area. Has some pain in the knees but patient was able to ambulate with a walker to her car on the way to the ER. Patient has chronic difficulty breathing and chronic lower extremity swellings which is not any worse than usual. Denies any chest pain or shortness of breath otherwise. Allergies/Adverse Reactions: No Known Drug Allergies Allergy (Verified 03/28/24 14:41) Home Medications: Atorvastatin Calcium [Lipitor] 40 mg PO HS 12/30/21 [History] Furosemide 40 mg [Lasix 40 MG] 60 mg PO DAILY 12/30/21 [History] Omeprazole 40 mg PO BID 12/30/21 [History] PARoxetine HCL [Paxil] 40 mg PO DAILY 12/30/21 [History] Aspirin EC 81 mg [Ecotrin 81 mg] 81 mg PO DAILY 01/22/24 [History] Clopidogrel Bisulfate [PLAVIX Tablet] 75 mg PO DAILY 01/22/24 [History] Fluticasone Propion/Salmeterol [Fluticasone-Salmeterol 250-50] 2 puff PO DAILY 01/22/24 [History] Gabapentin [Neurontin ] 400 mg PO TID 01/22/24 [History] Hydroxyzine HCl 25 mg [Atarax 25 mg] 25 mg PO DAILY 01/22/24 [History] Magnesium Oxide 400 mg [Mag-Ox 400] 400 mg PO DAILY 01/22/24 [History] Nitroglycerin 0.4 mg Tablet [Nitrostat 0.4 MG Tablet] 0.4 mg PO Q5MIN PRN MR X 3 PRN 01/22/24 [History] Potassium Chloride [Klor-Con 8] 8 meq PO DAILY 01/22/24 [History] Empagliflozin [Jardiance] 10 mg PO DAILY 02/07/24 [History] Hydrocodone/Acetaminophen [Hydrocodone-Acetamin 5-325 mg] 1 tab PO TID 02/07/24 [History] Prednisone 10 mg [Deltasone 10 mg] 10 mg PO DAILY 02/07/24 [History] Lamotrigine [Lamotrigine ER] 25 mg PO BID 03/28/24 [History] Alendronate Sodium 70 mg [Fosamax 70 MG] 70 mg PO WEEKLY 04/07/24 [History] Ferrous Sulfate 325 mg [Feosol 325 mg] 325 mg PO DAILY 04/07/24 [History] Omeprazole 40 mg PO BID 04/07/24 [History] Hx Tetanus, Diphtheria Vaccination/Date Given: No Hx Influenza Vaccination/Date Given: No Hx Pneumococcal Vaccination/Date Given: Yes Immunizations Up to Date: Yes Travel Risk - International Travel Have you traveled outside of the country in past 3 weeks: No - Emerging Infectious Disease Are you exhibiting symptoms associated with any current EIDs: No Symptoms: Shortness of Breath - Review of Systems Constitutional: Fatigue Eyes: No Symptoms Ears, Nose, & Throat: No Symptoms Respiratory: Cough, Dyspnea, Wheezing Cardiac: Edema Abdominal/Gastrointestinal: No Symptoms Genitourinary Symptoms: No Symptoms Musculoskeletal: Arthralgias, Back Pain, Fall, Injury Skin: No Symptoms Neurological: No Symptoms Endocrine: No Symptoms Hematologic/Lymphatic: No Symptoms - Past Medical History Pertinent Past Medical History: Yes Neurological History: Migraines, Peripheral Neuropathy ENT History: Cataracts Cardiac History: Angina, High Cholesterol, Myocardial Infarction (ND) Respiratory History: COPD, Pneumonia Endocrine Medical History: No Pertinent History Musculoskeletal History: Arthritis GI Medical History: Hemorrhoids, Hernia, Polyps, Ulcer History: No Pertinent History Psycho-Social History: Anxiety, Depression Female Reproductive Disorders: No Pertinent History Other Medical History: PCI of the mid LAD with 1 [employer]tronic Mao Fronteir drug- eluting stent (12/26/23). - Past Surgical History Past Surgical History: Yes Neuro Surgical History: No Pertinent History Cardiac: No Pertinent History Respiratory: No Pertinent History Gastrointestinal: Appendectomy, Cholecystectomy Genitourinary: No Pertinent History Musculoskeletal: No Pertinent History Female Surgical History: Section, Hysterectomy Other Surgical History: RIGHT KIDNEY REMOVAL Significant Family History: no pertinent family hx - Social History Smoking Status: Former smoker How long have you smoked: 45+ Exposure to second hand smoke: Yes Drug Use: none Patient Lives Alone: No (Brother) - Social Determinants of Health Will the patient participate in the screening: Yes Do you worry about a steady place to live?: No Do you have any problems with any of the following?: No known problems In the past 12 months,have you had to go without utilities?: No Transportation Issues: No Has anyone in your support network made you feel unsafe?: No Have you or anyone in your house had to go without enough: No - Nursing Vital Signs Nursing Vital Signs: Initial Vital Signs Temperature 97.7 F 04/07/24 13:23 Pulse Rate 74 04/07/24 13:23 Respiratory Rate 18 04/07/24 13:23 Blood Pressure 143/62 04/07/24 13:23 O2 Sat by Pulse Oximetry 98 04/07/24 13:23 Pain Scale Pain Intensity 4 - [place] Coma Score Best Eye Response ([place]): (4) open spontaneously Best Verbal Response ([place]): (5) oriented Best Motor Response ([place]): (6) obeys commands [place] Total: 15 - Physical Exam General Appearance: no apparent distress Head Injury: contusions, swelling, tenderness Eye Exam: PERRL/EOMI, eyes nml inspection ENT Exam: airway nml, nml ext.inspection, No evidence of ENT injury, No dental injury Neck Exam: supple, trachea midline, full range of motion, normal alignment Respiratory/Chest Exam: chest tenderness (Left lower posterolateral chest wall), accessory muscle use Cardiovascular Exam: normal heart sounds, regular rate/rhythm, edema Gastrointestinal Exam: soft, normal bowel sounds Back Exam: normal inspection, decreased range of motion, muscle spasm Extremity Exam: normal inspection, normal range of motion Neurologic Exam: alert, oriented x 3, cooperative, veneer gluer II-XII nml as tested, nml cerebellar function, sensation nml, No motor deficits Skin Exam: normal color SpO2 Interpretation: O2 applied SpO2: 96 O2 Delivery: Nasal Cannula Ordered Tests: Active Orders 24 hr Category Date Time Status IV Insertion STAT Care 04/07/24 14:06 Active ABDOMEN AND PELVIS W/0 CONTRAS [CT] Stat Exams 04/07/24 13:39 Completed CERVICAL SPINE WO CONTRAST [CT] Stat Exams 04/07/24 13:39 Completed CHEST WITHOUT CONTRAST [CT] Stat Exams 04/07/24 13:39 Completed HEAD WITHOUT CONTRAST [CT] Stat Exams 04/07/24 13:39 Completed CBC Stat Lab 04/07/24 14:25 Completed CMP Stat Lab 04/07/24 14:25 Completed CULTURE,URINE Stat Lab 04/07/24 16:05 Received UA W/RFX UR CULTURE Stat Lab 04/07/24 16:05 Completed Respiratory Therapy Assessment DAILY RT 04/07/24 14:06 Active Transfer Order Routine Transfer 04/07/24 Ordered Medication Summary Generic Name Dose Route Start Last Admin Trade Name Freq PRN Reason Stop Dose Admin Ceftriaxone Sodium 1 gm in 100 mls @ 200 mls/hr 04/07/24 16:23 04/07/24 16:29 Rocephin 1 Gm / 100 Ml Nacl IV 04/07/24 16:52 200 mls/hr STAT ONE 200 mls/hr Administration Discontinued Medications Generic Name Dose Route Start Last Admin Trade Name Freq PRN Reason Stop Dose Admin Albuterol/Ipratropium 3 ml 04/07/24 13:56 04/07/24 14:19 Ipratropium/Albuterol Sulfate 3 Ml Ampul.Neb IH 04/07/24 13:57 3 ml STAT ONE Administration Fentanyl Citrate 50 mcg 04/07/24 13:56 04/07/24 14:31 Fentanyl Citrate 100 Mcg/2 Ml* Vial IV 04/07/24 13:57 50 mcg STAT ONE Administration Fentanyl Citrate Confirm 04/07/24 14:29 Fentanyl Citrate 100 Mcg/2 Ml* Vial Administered 04/07/24 14:30 Dose 100 mcg .ROUTE .STK-MED ONE Ceftriaxone Sodium Confirm 04/07/24 16:28 Rocephin 1 Gm / 100 Ml Nacl Administered 04/07/24 16:29 Dose 1 gm in 100 mls @ ud IV .STK-MED ONE Ondansetron HCl 4 mg 04/07/24 13:56 04/07/24 14:31 Ondansetron Hcl 4 Mg/2 Ml Vial IV 04/07/24 13:57 4 mg STAT ONE Administration Ondansetron HCl Confirm 04/07/24 14:29 Ondansetron Hcl 4 Mg/2 Ml Vial Administered 04/07/24 14:30 Dose 4 mg .ROUTE .STK-MED ONE Lab/Rad Data: Laboratory Result Diagrams 04/07/24 14:25 04/07/24 14:25 Laboratory Results 04/07/24 04/07/24 04/07/24 Range/Units 16:05 14:25 14:25 WBC 12.5 H (3.98-10.04) x10^3/uL RBC 4.48 (3.93-5.22) x10^6/uL Hgb 10.8 L (11.2-15.7) g/dL Hct 36.6 (34.1-44.9) % MCV 81.7 (79.4-94.8) fL MCH 24.1 L (25.6-32.2) pg MCHC 29.5 L (32.2-35.5) g/dL RDW 19.1 H (11.7-14.4) % Plt Count 287 (182-369) x10^3/uL MPV 9.1 L (9.4-12.3) fL Sodium 139 (135-145) mmol/L Potassium 3.1 L (3.5-5.1) mmol/L Chloride 87 L (98-107) mmol/L Carbon Dioxide 38 H (22-30) mmol/L Anion Gap 17.1 H (5-15) MEQ/L BUN 67 H (7-17) mg/dL Creatinine 1.70 H (0.52-1.04) mg/dL Estimated GFR 30.3 ML/MIN Glucose 124 H (74-106) mg/dL Calcium 9.3 (8.4-10.2) mg/dL Total Bilirubin 0.50 (0.2-1.3) mg/dL AST 35 (14-36) U/L ALT 33 (0-35) U/L Alkaline Phosphatase 143 H (38-126) U/L Serum Total Protein 6.4 (6.3-8.2) g/dL Albumin 4.0 (3.5-5.0) g/dL Urine Color Yellow (Yellow) Urine Appearance Clear (Clear) Urine pH 7.5 (4.6-8.0) Ur Specific [place] 1.010 (1.005-1.030) Urine Protein Negative (Negative) Urine Glucose (UA) 250 A (Negative) mg/dL Urine Ketones Negative (Negative) Urine Blood Negative (Negative) Urine Nitrite Positive A (Negative) Urine Bilirubin Negative (Negative) Urine Urobilinogen 0.2 (0.2) mg/dL Ur Leukocyte Esterase Small A (Negative) U Hyaline Cast (Auto) NONE SEEN (0-2) /LPF Urine Microscopic RBC 0-2 (0-5) /HPF Urine Microscopic WBC 21-50 A (0-5) /HPF Ur Epithelial Cells None Seen (None Seen) /HPF Urine Bacteria Many A (None Seen) /HPF Urine Culture Reflexed YES (NO) - Progress Progress: improved, pain not gone completely, re-examined Progress Note: 04/07/24 17:07 78-year-old female with multiple medical problems including chronic respiratory failure secondary to COPD, hypertension, hyperlipidemia, CAD with stenting, CHF, arthritis needing ambulation with a walker is evaluated in the ER for repeated falls lately and fell this morning prior to arrival while walking without her walker. She has contusion right side of the head and right orbital area. No step in deformity. Intact range of motion of eyeballs. Patient has chronic respiratory failure on oxygen with wheezing but not any worse than usual. She is given DuoNeb. I have obtained CT head cervical spine chest and abdomen pelvis as patient was tender in the flanks, lower chest wall as well. CT head and cervical spine are negative for any acute trauma findings. CT chest showed left 11th rib fracture with no pneumo or hemothorax. CT abdomen pelvis is negative otherwise. She does have UTI. Has a white count of 12, has CKD with creatinine around baseline of 1.7. She is given a dose of Rocephin. Her repeated falls lately could be secondary to UTIs making her weak. I believe patient would benefit with IV antibiotics, pain medications and PT OT. Discussed with Dr. Hollins, reviewed history, workup and agreed with admission. He had the results of workup with patient and family and plan of admission which they understand and agree. Discussed with Dr.: Other () Will see patient in: hospital (observation) Counseled pt/family regarding: lab results, diagnosis, rad results Medical Desision Making - Independent Historian Additional History obtained from: Child - Discussion of managment Care discussed with:: hospitalist () Reviewed:: Test results Agreed on:: Treatment plan Will see patient: in hospital - Diagnostic Testing Diagnostic test were ordered, analyzed, and reviewed by me: Yes Radiological Interpretation: Reviewed by me, Teleradiologist Report - Risk of complications The pt has a mod risk of morbidity or mortality based on: Need for prescription drug management The pt has a high risk of morbidity or mortality based on: Decision regarding hospitilization or escalation of hosp level of care - Departure Departure Disposition: Observation Clinical Impression: Repeated falls, UTI (urinary tract infection), Rib fracture, COPD (chronic obstructive pulmonary disease) Condition: Stable Critical Care Time: No Referrals: MANJIT LEE [Primary Care Provider] - Follow up/PCP as directed Instructions: Chronic Obstructive Pulmonary Disease
--- NOTE | 2024-04-07 17:51 | PCM.HP ---
History of Present Illness - Chief Complaint Chief Complaint: Fall/UTI/Weakness Date: 04/07/24 History of Present Illness: Ms. Centeno is a 78 year old female with a pmhx of seizure, dementia, GERD, COPD (2L oxygen at baseline), NC, anxiety/depression, CAD with PCI of the mid LAD with 1 Medtronic Mao Fronteir drug-eluting stent , CHF, right nephrectomy, hypertension, HLD, and OA who presented to ED 04/07/24 after a ground level fall at home. Patient states she is supposed to use her walker at all times but ambulated without her walker down the [place] to her thermostat to turn down the heat and her knees gave out and she fell. She states "I ping-ponged between the two hallway jalloh when I went down." Once she fell she was unable to get up for around 30-45mins. She has multiple areas of bruising on exam including her right eye. Her daughter states this is her third fall in the last 10-12 days. They feel that her last fall resulted in the left rib fracture shown on today's CT scan as she has had left rib pain every since that fall. She also has complaints a productive cough with yellow sputum, increased shortness of breath, and dysuria. She has been seeing Crystal Arredondo (urology) as OP. She was requiring a mckoy cath at one point but later removed with successful voiding since. Per her daughter is being evaluated for bladder cancer with a cystoscopy planned. She was diagnosed with a UTI by her urologist around 03/25/24 and was placed on Augmentin. Due to weakness and multiple falls, patient and daughter requesting rehab on discharge for strengthening. Upon arrival to ED, vitals are stable. CT abdomen and pelvis demonstrates Left 11th rib acute fracture (non-displaced). CT cervical spine with no evidence of acute fracture or dislocation. CT chest again noting non-displaced acute fracture of the posterior segment of the left 11th rib. No pulmonary contusion or pneumothorax. Middle lobar,lingular & bilateral basal pulmonary atelectatic bands. Minimal bilateral basal pleural thickening /reaction. CT head with no acute findings. Lab findings remarkable for leukocytosis at 12.5. Hypochromic anemia with hgb at 10.8, hypokalemia with potassium at 3.1, ANDREA wth BUN at 67, crat at 1.70 (baseline around 1.3-1.5), UA with positive nitrites and sundeep kocytes. Patient given ceftriaxone, fentanyl, and zofran in ED. - Review of Systems Constitutional: Weakness Eyes: No Symptoms Ears, Nose, & Throat: No Symptoms Respiratory: Cough, Short Of Breath Cardiac: Edema (BLE L>R 4++) Abdominal/Gastrointestinal: No Symptoms Genitourinary Symptoms: Dysuria Musculoskeletal: Joint Pain Skin: Other (multiple areas of bruising including right eye) Neurological: Focal Weakness Psychological: No Symptoms Endocrine: No Symptoms Hematologic/Lymphatic: Anemia Immunological/Allergic: No Symptoms Medications & Allergies Home Medications: Home Medication List Atorvastatin Calcium [Lipitor] 40 mg PO HS 12/30/21 [History Confirmed 04/07/24] Furosemide 40 mg [Lasix 40 MG] 60 mg PO DAILY 12/30/21 [History Confirmed 04/07/24] PARoxetine HCL [Paxil] 40 mg PO DAILY 12/30/21 [History Confirmed 04/07/24] Aspirin EC 81 mg [Ecotrin 81 mg] 81 mg PO DAILY 01/22/24 [History Confirmed 04/07/24] Clopidogrel Bisulfate [PLAVIX Tablet] 75 mg PO DAILY 01/22/24 [History Confirmed 04/07/24] Fluticasone Propion/Salmeterol [Fluticasone-Salmeterol 250-50] 2 puff PO DAILY 01/22/24 [History Confirmed 04/07/24] Gabapentin [Neurontin ] 400 mg PO TID 01/22/24 [History Confirmed 04/07/24] Hydroxyzine HCl 25 mg [Atarax 25 mg] 25 mg PO DAILY 01/22/24 [History Confirmed 04/07/24] Magnesium Oxide 400 mg [Mag-Ox 400] 400 mg PO DAILY 01/22/24 [History Confirmed 04/07/24] Nitroglycerin 0.4 mg Tablet [Nitrostat 0.4 MG Tablet] 0.4 mg PO Q5MIN PRN MR X 3 PRN 01/22/24 [History Confirmed 04/07/24] Potassium Chloride [Klor-Con 8] 8 meq PO DAILY 01/22/24 [History Confirmed 04/07/24] Empagliflozin [Jardiance] 10 mg PO DAILY 02/07/24 [History Confirmed 04/07/24] Hydrocodone/Acetaminophen [Hydrocodone-Acetamin 5-325 mg] 1 tab PO DAILY PRN PRN 02/07/24 [History Confirmed 04/07/24] Prednisone 10 mg [Deltasone 10 mg] 10 mg PO DAILY 02/07/24 [History Confirmed 04/07/24] Lamotrigine [Lamotrigine ER] 25 mg PO BID 03/28/24 [History Confirmed 04/07/24] Alendronate Sodium 70 mg [Fosamax 70 MG] 70 mg PO WEEKLY 04/07/24 [History Confirmed 04/07/24] Ferrous Sulfate 325 mg [Feosol 325 mg] 325 mg PO DAILY 04/07/24 [History Confirmed 04/07/24] Omeprazole 40 mg PO BID 04/07/24 [History Confirmed 04/07/24] Allergies/Adverse Reactions: Allergies Allergy/AdvReac Type Severity Reaction Status Date / Time No Known Drug Allergies Allergy Verified 03/28/24 14:41 - Past Medical History Past Medical History: Yes Neurological History: Migraines, Peripheral Neuropathy ENT History: Cataracts Cardiac History: Angina, High Cholesterol, Myocardial Infarction (NC) Respiratory History: COPD, Pneumonia Endocrine Medical History: No Pertinent History Musculoskelatal History: Arthritis GI Medical History: Hemorrhoids, Hernia, Polyps, Ulcer History: No Pertinent History Pyscho-Social History: Anxiety, Depression Reproductive Disorders: No Pertinent History Comment: PCI of the mid LAD with 1 Medtronic Mao Fronteir drug-eluting stent (12/26/23). - Past Surgical History Past Surgical History: Yes Neuro Surgical History: No Pertinent History Cardiac History: No Pertinent History Respiratory Surgery: No Pertinent History GI Surgical History: Appendectomy, Cholecystectomy Genitourinary Surgical Hx: No Pertinent History Musculskeletal Surgical Hx: No Pertinent History Female Surgical History: Section, Hysterectomy Other Surgical History: RIGHT KIDNEY REMOVAL Significant Family History: no pertinent family hx - Social History Smoking Status: Former smoker How long have you smoked: 45+ Exposure to second hand smoke: Yes Alcohol: None Drug Use: none - Social Determinants of Health Will the patient participate in the screening: Yes Do you worry about a steady place to live?: No Do you have any problems with any of the following?: No known problems In the past 12 months,have you had to go without utilities?: No Have you or anyone in your house had to go without enough: No Transportation Issues: No Has anyone in your support network made you feel unsafe?: No - Physical Exam Vital Signs: Vital Signs - 24 hr Temp Pulse Resp BP BP Pulse Ox 04/07/24 17:14 96 04/07/24 16:30 120/50 04/07/24 16:15 76 20 121/62 96 04/07/24 15:30 76 90/50 97 04/07/24 15:00 79 20 116/56 98 04/07/24 14:30 135/59 97 04/07/24 14:19 88 20 126/108 97 04/07/24 14:15 94 L 04/07/24 13:30 142/51 04/07/24 13:23 97.7 F 74 18 143/62 98 General Appearance: no apparent distress Neurologic Exam: alert, oriented x 3, cooperative Eye Exam: PERRL/EOMI, other (right orbital bruising) Ears, Nose, Throat Exam: moist mucous membranes Neck Exam: normal inspection Respiratory Exam: crackles/rales, wheezing Cardiovascular Exam: regular rate/rhythm, normal heart sounds Gastrointestinal/Abdomen Exam: soft, normal bowel sounds Pelvic Exam: not done Rectal Exam: deferred Back Exam: normal inspection Extremity Exam: pedal edema, swelling (BLE L>R 4++ pitting edema) Skin Exam: ecchymosis (multiple areas - right eye) Results - Labs Lab/Micro Results: Lab Results-Last 24 Hours 04/07/24 04/07/24 04/07/24 Range/Units 14:25 14:25 16:05 WBC 12.5 H (3.98-10.04) x10^3/uL RBC 4.48 (3.93-5.22) x10^6/uL Hgb 10.8 L (11.2-15.7) g/dL Hct 36.6 (34.1-44.9) % MCV 81.7 (79.4-94.8) fL MCH 24.1 L (25.6-32.2) pg MCHC 29.5 L (32.2-35.5) g/dL RDW 19.1 H (11.7-14.4) % Plt Count 287 (182-369) x10^3/uL MPV 9.1 L (9.4-12.3) fL Sodium 139 (135-145) mmol/L Potassium 3.1 L (3.5-5.1) mmol/L Chloride 87 L (98-107) mmol/L Carbon Dioxide 38 H (22-30) mmol/L Anion Gap 17.1 H (5-15) MEQ/L BUN 67 H (7-17) mg/dL Creatinine 1.70 H (0.52-1.04) mg/dL Estimated GFR 30.3 ML/MIN Glucose 124 H (74-106) mg/dL Calcium 9.3 (8.4-10.2) mg/dL Total Bilirubin 0.50 (0.2-1.3) mg/dL AST 35 (14-36) U/L ALT 33 (0-35) U/L Alkaline Phosphatase 143 H (38-126) U/L Serum Total Protein 6.4 (6.3-8.2) g/dL Albumin 4.0 (3.5-5.0) g/dL Urine Color Yellow (Yellow) Urine Appearance Clear (Clear) Urine pH 7.5 (4.6-8.0) Ur Specific [place] 1.010 (1.005-1.030) Urine Protein Negative (Negative) Urine Glucose (UA) 250 A (Negative) mg/dL Urine Ketones Negative (Negative) Urine Blood Negative (Negative) Urine Nitrite Positive A (Negative) Urine Bilirubin Negative (Negative) Urine Urobilinogen 0.2 (0.2) mg/dL Ur Leukocyte Esterase Small A (Negative) U Hyaline Cast (Auto) NONE SEEN (0-2) /LPF Urine Microscopic RBC 0-2 (0-5) /HPF Urine Microscopic WBC 21-50 A (0-5) /HPF Ur Epithelial Cells None Seen (None Seen) /HPF Urine Bacteria Many A (None Seen) /HPF Urine Culture Reflexed YES (NO) - Radiology Impressions Radiology Exams & Impressions: Radiology Procedures Category Date Time Status ABDOMEN AND PELVIS W/0 CONTRAS [CT] Stat Exams 04/07/24 13:39 Completed CERVICAL SPINE WO CONTRAST [CT] Stat Exams 04/07/24 13:39 Completed CHEST WITHOUT CONTRAST [CT] Stat Exams 04/07/24 13:39 Completed HEAD WITHOUT CONTRAST [CT] Stat Exams 04/07/24 13:39 Completed - Other Procedures and Tests Respiratory Therapy 04/07/24 17:07 Oxygen Nasal Cannula 2 lpm Respiratory Therapy Consult ONCE Assessment/Plan (1) UTI (urinary tract infection) Current Visit: Yes Status: Acute Assessment & Plan: -UA suspicious for infection, ceftriaxone started in ED empirically, will continue and follow culture -Recent culture 03/03/24 with ecoli with sensitivity to ceftriaxone+ -PT follows with Urology as OP Code(s): N39.0 - URINARY TRACT INFECTION, SITE NOT SPECIFIED (2) Rib fracture Current Visit: Yes Status: Acute Assessment & Plan: -CT abdomen and pelvis demonstrates Left 11th rib acute fracture (non-displaced) -pain management - Avoid NSAIDs with ANDREA -IS to reduce risk of atelectasis/pneumonia Code(s): S22.39XA - FRACTURE OF ONE RIB, UNSP SIDE, INIT FOR CLOS FX (3) CHF (congestive heart failure) Current Visit: Yes Status: Acute Assessment & Plan: -No echo on file -BNP -BLE 4++ pitting - lasix x 1 dose -daily weight -Elevate HOB -Strict I&O - No consolidation/effusion noted on CT -optimize electrolytes -Jardiance -hold with ANDREA Code(s): I50.9 - HEART FAILURE, UNSPECIFIED (4) COPD (chronic obstructive pulmonary disease) Current Visit: Yes Status: Acute Assessment & Plan: -2L at baseline and currently -Supplemental oxygen for spo2 goal 89-91% -Nebs prn - continue home advair -Resp viral panel -solumedrol 40mg bid -Ceftriaxone (5) Repeated falls Current Visit: Yes Status: Acute Assessment & Plan: -PT eval -secondary to weakness -Patient would like rehab on discharge Code(s): R29.6 - REPEATED FALLS (6) Acute on chronic renal failure Current Visit: No Status: Acute Assessment & Plan: -Baseline around 1.3-1.5 - at 1.7 -Avoid GEORGE/ARB/NSAIDS- lasix x 1 due to BLE edema -monitor renal/lytes -optimize electrolytes -Hold Jardiance Code(s): N17.9 - ACUTE KIDNEY FAILURE, UNSPECIFIED; N18.9 - CHRONIC KIDNEY DISEASE, UNSPECIFIED (7) Hypokalemia Current Visit: No Status: Acute Assessment & Plan: -at 3.1, will replenish per protocol Code(s): E87.6 - HYPOKALEMIA (8) Seizure disorder Current Visit: Yes Status: Acute Assessment & Plan: -Hisory of seizure x 1 - continue lamotrigine - has neurology appt Monday Code(s): G40.909 - EPILEPSY, UNSP, NOT INTRACTABLE, WITHOUT STATUS EPILEPTICUS (9) Anemia Current Visit: No Status: Acute Qualifiers: Anemia type: unspecified type Qualified Code(s): D64.9 - Anemia, unspecified Assessment & Plan: -chronic - at baseline at 10.8 - continue ferrous sulfate VTE: Lovenox PPI: Protonix Code status: Full code Code(s): D64.9 - ANEMIA, UNSPECIFIED Telemedicine Encounter - Telemedicine Encounter Telemedicine Encounter: "The entirety of this encounter was performed via Telemedicine" This visit was performed using real-time audio and video connection between my location and thepatients locationwith the assistance of a surrogateat the patients location. Written or verbal consent was obtained from the patient/guardian to perform this visit [facility]. Any patient questions regarding the telemedicine interaction were answered.
[2024-04-07] MEDS ORDERED: Nitrostat 0.4 MG Tablet SL PRN (18:27)
[2024-04-07] MEDS ORDERED: TYLENOL 325 MG PO PRN (18:34)
[2024-04-07] MEDS ORDERED: Klor Con ONE ×3 (19:32→23:41)
[2024-04-07] MEDS: Klor Con PO SCH (19:40)
[2024-04-07] MEDS: Lasix 40 MG/4 ML IV ONE (19:40)
[2024-04-07 19:56] LABS: INFLUENZA A NEGATIVE (NEGATIVE); INFLUENZA B NEGATIVE (NEGATIVE); RESPIRATORY SYNCTIAL VIRUS NEGATIVE (NEGATIVE); SARS-CoV-2 Xpert Express NEGATIVE (NEGATIVE)
[2024-04-07] MEDS: DUONEB 0.5-3 MG/3 ml Neb IH SCH (20:19)
[2024-04-07] MEDS: Advair Hfa 115/21 Common canister IH SCH (20:19)
[2024-04-07] MEDS ORDERED: Protonix 40MG Tablet ONE (22:26)
[2024-04-07] MEDS ORDERED: solu-MEDROL ONE (22:26)
[2024-04-07] MEDS ORDERED: ZOCOR 20MG ONE (22:27)
[2024-04-07] MEDS ORDERED: Sterile H2O 10 ml IJ ONE (22:27)
[2024-04-07] MEDS: NORCO 5/325 MG PO PRN (22:34)
[2024-04-07] MEDS: Neurontin PO SCH (22:35)
[2024-04-07] MEDS: ZOCOR 20MG PO SCH (22:35)
[2024-04-07] MEDS: Protonix 40MG Tablet PO ONE (22:36)
[2024-04-07] MEDS: ATARAX 25 MG PO SCH (22:36)
[2024-04-07] MEDS: solu-MEDROL 40 MG, Sterile H2O 10 ml 1 ML IV SCH (22:36)
[2024-04-07] MEDS: LIPITOR 40MG PO SCH (22:51)
[2024-04-07] MEDS: NON-FORMULARY ITEM (Omeprazole [Omeprazole] 40 MG Capsule.Dr) PO SCH (22:51)
[2024-04-07] MEDS ORDERED: lamICTAL 100MG TABLET ONE (23:35)
[2024-04-07] MEDS: lamICTAL 100MG TABLET PO SCH (23:44)
[2024-04-07] MEDS: LAMOTRIGINE 25 MG PO SCH (23:49)
[2024-04-08] MEDS: Klor Con PO SCH ×2 (00:44→10:53)
[2024-04-08] MEDS: Sodium Chloride 0.9% 250 ML 250 ML IV SCH (00:48)
[2024-04-08] MEDS: POTASSIUM CHLORIDE 20 mEq IN WATER 100ML 100 ML IV SCH (00:48)
[2024-04-08 04:53] LABS: BASOPHIL % 0.2 % (0.1-1.2); Basophil (Absolute #) 0.02 x10^3/uL (0.01-0.08); Eosinophil (Absolute #) 0 x10^3/uL (0.04-0.36); Hematocrit 36.3 % (34.1-44.9); Hemoglobin 10.5 g/dL (11.2-15.7); IMMATURE GRAN # 0.03 x10^3u/L (0.001-0.031); IMMATURE GRAN % 0.4 % (0.001-0.429); Lymphocyte (Absolute #) 0.72 x10^3/uL (1.18-3.74); Lymphocytes % 8.9 % (19.3-51.7); Mean Cell Volume 83.4 fL (79.4-94.8); Mean Corpuscular Hemoglobin 24.1 pg (25.6-32.2); Mean Corpuscular Hgb Concent. 28.9 g/dL (32.2-35.5); Mean Platelet Volume 9.1 fL (9.4-12.3); Monocyte (Absolute #) 0.05 x10^3/uL (0.24-0.86); Monocytes % 0.6 % (4.7-12.5); Neutrophil % 89.9 % (34.0-71.1); Platelet Count 279 x10^3/uL (182-369); Red Blood Count 4.35 x10^6/uL (3.93-5.22); Red Cell Distribution Width 18.9 % (11.7-14.4); White Blood Count 8.1 x10^3/uL (3.98-10.04)
[2024-04-08 05:10] LABS: ALBUMIN 3.9 g/dL (3.5-5.0); BILIRUBIN,TOTAL 0.3 mg/dL (0.2-1.3); Calcium 9.1 mg/dL (8.4-10.2); Creatinine 1 1.79 mg/dL (0.52-1.04); EST GLOMERULAR FILTRATION RATE 28.5 ML/MIN; MAGNESIUM 2.6 mg/dL (1.6-2.3); Potassium 4.2 mmol/L (3.5-5.1); Total Protein 6.6 g/dL (6.3-8.2)
[2024-04-08 05:17] LABS: ANION GAP 17.2 MEQ/L (5-15)
[2024-04-08] MEDS ORDERED: DUONEB 0.5-3 MG/3 ml Neb IH ONE (06:59)
[2024-04-08] MEDS ORDERED: Klor Con ONE (07:20)
[2024-04-08] MEDS ORDERED: PAROXETINE HCL 40 MG PO SCH (10:00)
[2024-04-08] MEDS ORDERED: NON-FORMULARY ITEM (Potassium Chloride [Klor-Con 8] 8 MEQ Tablet.Er) PO SCH (10:00)
[2024-04-08] MEDS ORDERED: FLUTICASONE-SALMETEROL 250-50 IH SCH (10:00)
[2024-04-08] MEDS: ROCEPHIN 1 GM / 100 ML NaCl 1 GM/100 ML IVPB IV SCH (10:53)
[2024-04-08] MEDS: MAG-OX 400 PO SCH (10:54)
[2024-04-08] MEDS: FEOSOL 325 MG PO SCH (10:54)
[2024-04-08] MEDS: Paxil 20 MG PO SCH (10:54)
[2024-04-08] MEDS: ENOXAPARIN SODIUM SQ SCH (10:55)
[2024-04-08] MEDS: Protonix 40MG Tablet PO SCH (10:56)
[2024-04-08] MEDS: ECOTRIN 81 MG PO SCH (10:56)
--- NOTE | 2024-04-08 12:16 | PCM.NOTE ---
Date and Time: 04/08/24 1208 Subjective Assessment: Ms. Centeno is a 78 year old female with a pmhx of seizure, dementia, GERD, COPD (2L oxygen at baseline), [place], anxiety/depression, CAD with PCI of the mid LAD with 1 [employer] [place] Fronteir drug-eluting stent , CHF, right nephrectomy, hypertension, HLD, and OA who presented to ED 04/07/24 after a ground level fall at home. Patient states she is supposed to use her walker at all times but ambulated without her walker down the [place] to her thermostat to turn down the heat and her knees gave out and she fell. She states "I ping-ponged between the two hallway jalloh when I went down." Once she fell she was unable to get up for around 30-45mins. She has multiple areas of bruising on exam including her right eye. Her daughter states this is her third fall in the last 10-12 days. They feel that her last fall resulted in the left rib fracture shown on today's CT scan as she has had left rib pain every since that fall. She also has complaints a productive cough with yellow sputum, increased shortness of breath, and dysuria. She has been seeing Crystal Arredondo (urology) as OP. She was requiring a mckoy cath at one point but later removed with successful voiding since. Per her daughter is being evaluated for bladder cancer with a cystoscopy planned. She was diagnosed with a UTI by her urologist around 03/25/24 and was placed on Augmentin. Due to weakness and multiple falls, patient and daughter requesting rehab on discharge for strengthening. Pt continues to have coarse lung sounds today. Repeat CXR ordered. Pt states she wants to go to [facility] at d/c as she has been falling on average three times per day. She is refusing a heart healthy diet. Pt denies CP, SOB, abd. pain, N/V/D. Discussed pt case with daughter in detail. - Review of Systems Constitutional: No Fever, No Chills Eyes: No Symptoms Ears, Nose, & Throat: No Symptoms Respiratory: Cough, Orthopnea, Short Of Breath Cardiac: No Chest Pain, No Edema, No Syncope Abdominal/Gastrointestinal: No Abdominal Pain, No Nausea, No Vomiting, No Diarrhea Genitourinary Symptoms: No Dysuria Musculoskeletal: No Back Pain, No Neck Pain Skin: Other (mutiple bruises all over body), No Rash Neurological: No Dizziness, No Focal Weakness, No Sensory Changes Psychological: No Symptoms Endocrine: No Symptoms Hematologic/Lymphatic: No Symptoms Immunological/Allergic: No Symptoms Objective Exam General Appearance: no apparent distress, alert Neurologic Exam: alert, oriented x 3, cooperative, normal mood/affect, nml cerebellar function, sensation nml, motor weakness, No motor deficits Skin Exam: normal color, warm, dry, other (Multiple bruises in various stages of healing all over body.) Eye Exam: PERRL, EOMI, eyes nml inspection Ears, Nose, Throat Exam: normal ENT inspection, pharynx normal, moist mucous membranes Neck Exam: normal inspection, non-tender, supple, full range of motion Respiratory Exam: normal breath sounds, lungs clear, rhonchi, No respiratory distress Cardiovascular Exam: regular rate/rhythm, normal heart sounds Gastrointestinal/Abdomen Exam: soft, No tenderness, No mass Extremity Exam: normal inspection, normal range of motion Back Exam: normal inspection, normal range of motion, No CVA tenderness, No vertebral tenderness Pelvic Exam: deferred Rectal Exam: deferred Objective Data Vital Signs: Vital Signs - 24 hr Temp Pulse Resp BP BP BP Pulse Ox 04/08/24 11:01 68 16 94 L 04/08/24 07:19 97.7 F 65 16 119/58 95 04/08/24 07:11 72 16 95 04/08/24 04:00 97.9 F 65 14 125/57 96 04/08/24 01:00 98.7 F 74 19 109/51 92 L 04/07/24 22:47 98.5 F 81 20 103/98 95 04/07/24 20:10 81 18 100 04/07/24 20:00 76 04/07/24 18:23 98.4 F 80 16 120/51 97 04/07/24 17:35 74 18 94 L 04/07/24 17:14 96 04/07/24 16:30 120/50 04/07/24 16:15 76 20 121/62 96 04/07/24 15:30 76 90/50 97 04/07/24 15:00 79 20 116/56 98 04/07/24 14:30 135/59 97 04/07/24 14:19 88 20 126/108 97 04/07/24 14:15 94 L 04/07/24 13:30 142/51 04/07/24 13:23 97.7 F 74 18 143/62 98 Pain Assessment - Last Documented Pain Intensity 7 Pain Scale Used 0-10 Pain Scale Intake and Output: Intake & Output 04/06/24 04/07/24 04/08/24 04/09/24 11:59 11:59 11:59 11:59 Intake Total 1080 Output Total 1150 Balance -70 Weight 101.4 kg Lab Results: Lab Results-Last 24 Hours 04/07/24 04/07/24 04/07/24 Range/Units 14:25 14:25 14:25 WBC 12.5 H (3.98-10.04) x10^3/uL RBC 4.48 (3.93-5.22) x10^6/uL Hgb 10.8 L (11.2-15.7) g/dL Hct 36.6 (34.1-44.9) % MCV 81.7 (79.4-94.8) fL MCH 24.1 L (25.6-32.2) pg MCHC 29.5 L (32.2-35.5) g/dL RDW 19.1 H (11.7-14.4) % Plt Count 287 (182-369) x10^3/uL MPV 9.1 L (9.4-12.3) fL Gran % (34.0-71.1) % Immature Gran % (Auto) (0.001-0.429) % Nucleat RBC Rel Count (0.00-0.2) % Eos # (Auto) (0.04-0.36) x10^3/uL Immature Gran # (Auto) (0.001-0.031) x10^3u/L Absolute Lymphs (auto) (1.18-3.74) x10^3/uL Absolute Monos (auto) (0.24-0.86) x10^3/uL Absolute Nucleated RBC (0.00-0.012) x10^3u/L Lymphocytes % (19.3-51.7) % Monocytes % (4.7-12.5) % Eosinophils % (0.7-5.8) % Basophils % (0.1-1.2) % Absolute Granulocytes (1.56-6.13) x10^3/uL Basophils # (0.01-0.08) x10^3/uL Sodium 139 (135-145) mmol/L Potassium 3.1 L (3.5-5.1) mmol/L Chloride 87 L (98-107) mmol/L Carbon Dioxide 38 H (22-30) mmol/L Anion Gap 17.1 H (5-15) MEQ/L BUN 67 H (7-17) mg/dL Creatinine 1.70 H (0.52-1.04) mg/dL Estimated GFR 30.3 ML/MIN Glucose 124 H (74-106) mg/dL Calcium 9.3 (8.4-10.2) mg/dL Magnesium (1.6-2.3) mg/dL Total Bilirubin 0.50 (0.2-1.3) mg/dL AST 35 (14-36) U/L ALT 33 (0-35) U/L Alkaline Phosphatase 143 H (38-126) U/L NT-Pro-B Natriuret Pep 115 (<300) pg/mL Serum Total Protein 6.4 (6.3-8.2) g/dL Albumin 4.0 (3.5-5.0) g/dL Prealbumin (17.6-36.0) mg/dL Urine Color (Yellow) Urine Appearance (Clear) Urine pH (4.6-8.0) Ur Specific Winfred (1.005-1.030) Urine Protein (Negative) Urine Glucose (UA) (Negative) mg/dL Urine Ketones (Negative) Urine Blood (Negative) Urine Nitrite (Negative) Urine Bilirubin (Negative) Urine Urobilinogen (0.2) mg/dL Ur Leukocyte Esterase (Negative) U Hyaline Cast (Auto) (0-2) /LPF Urine Microscopic RBC (0-5) /HPF Urine Microscopic WBC (0-5) /HPF Ur Epithelial Cells (None Seen) /HPF Urine Bacteria (None Seen) /HPF Urine Culture Reflexed (NO) Influenza Type A Ag (NEGATIVE) Influenza Type B Ag (NEGATIVE) RSV (PCR) (NEGATIVE) SARS-CoV-2 (PCR) (NEGATIVE) 04/07/24 04/07/24 04/07/24 Range/Units 14:25 16:05 19:24 WBC (3.98-10.04) x10^3/uL RBC (3.93-5.22) x10^6/uL Hgb (11.2-15.7) g/dL Hct (34.1-44.9) % MCV (79.4-94.8) fL MCH (25.6-32.2) pg MCHC (32.2-35.5) g/dL RDW (11.7-14.4) % Plt Count (182-369) x10^3/uL MPV (9.4-12.3) fL Gran % (34.0-71.1) % Immature Gran % (Auto) (0.001-0.429) % Nucleat RBC Rel Count (0.00-0.2) % Eos # (Auto) (0.04-0.36) x10^3/uL Immature Gran # (Auto) (0.001-0.031) x10^3u/L Absolute Lymphs (auto) (1.18-3.74) x10^3/uL Absolute Monos (auto) (0.24-0.86) x10^3/uL Absolute Nucleated RBC (0.00-0.012) x10^3u/L Lymphocytes % (19.3-51.7) % Monocytes % (4.7-12.5) % Eosinophils % (0.7-5.8) % Basophils % (0.1-1.2) % Absolute Granulocytes (1.56-6.13) x10^3/uL Basophils # (0.01-0.08) x10^3/uL Sodium (135-145) mmol/L Potassium (3.5-5.1) mmol/L Chloride (98-107) mmol/L Carbon Dioxide (22-30) mmol/L Anion Gap (5-15) MEQ/L BUN (7-17) mg/dL Creatinine (0.52-1.04) mg/dL Estimated GFR ML/MIN Glucose (74-106) mg/dL Calcium (8.4-10.2) mg/dL Magnesium 2.5 H (1.6-2.3) mg/dL Total Bilirubin (0.2-1.3) mg/dL AST (14-36) U/L ALT (0-35) U/L Alkaline Phosphatase (38-126) U/L NT-Pro-B Natriuret Pep (<300) pg/mL Serum Total Protein (6.3-8.2) g/dL Albumin (3.5-5.0) g/dL Prealbumin (17.6-36.0) mg/dL Urine Color Yellow (Yellow) Urine Appearance Clear (Clear) Urine pH 7.5 (4.6-8.0) Ur Specific Winfred 1.010 (1.005-1.030) Urine Protein Negative (Negative) Urine Glucose (UA) 250 A (Negative) mg/dL Urine Ketones Negative (Negative) Urine Blood Negative (Negative) Urine Nitrite Positive A (Negative) Urine Bilirubin Negative (Negative) Urine Urobilinogen 0.2 (0.2) mg/dL Ur Leukocyte Esterase Small A (Negative) U Hyaline Cast (Auto) NONE SEEN (0-2) /LPF Urine Microscopic RBC 0-2 (0-5) /HPF Urine Microscopic WBC 21-50 A (0-5) /HPF Ur Epithelial Cells None Seen (None Seen) /HPF Urine Bacteria Many A (None Seen) /HPF Urine Culture Reflexed YES (NO) Influenza Type A Ag NEGATIVE (NEGATIVE) Influenza Type B Ag NEGATIVE (NEGATIVE) RSV (PCR) NEGATIVE (NEGATIVE) SARS-CoV-2 (PCR) NEGATIVE (NEGATIVE) 04/07/24 04/07/24 04/07/24 Range/Units 22:47 22:47 23:32 WBC (3.98-10.04) x10^3/uL RBC (3.93-5.22) x10^6/uL Hgb (11.2-15.7) g/dL Hct (34.1-44.9) % MCV (79.4-94.8) fL MCH (25.6-32.2) pg MCHC (32.2-35.5) g/dL RDW (11.7-14.4) % Plt Count (182-369) x10^3/uL MPV (9.4-12.3) fL Gran % (34.0-71.1) % Immature Gran % (Auto) (0.001-0.429) % Nucleat RBC Rel Count (0.00-0.2) % Eos # (Auto) (0.04-0.36) x10^3/uL Immature Gran # (Auto) (0.001-0.031) x10^3u/L Absolute Lymphs (auto) (1.18-3.74) x10^3/uL Absolute Monos (auto) (0.24-0.86) x10^3/uL Absolute Nucleated RBC (0.00-0.012) x10^3u/L Lymphocytes % (19.3-51.7) % Monocytes % (4.7-12.5) % Eosinophils % (0.7-5.8) % Basophils % (0.1-1.2) % Absolute Granulocytes (1.56-6.13) x10^3/uL Basophils # (0.01-0.08) x10^3/uL Sodium (135-145) mmol/L Potassium 2.7 L* (3.5-5.1) mmol/L Chloride (98-107) mmol/L Carbon Dioxide (22-30) mmol/L Anion Gap (5-15) MEQ/L BUN (7-17) mg/dL Creatinine (0.52-1.04) mg/dL Estimated GFR ML/MIN Glucose (74-106) mg/dL Calcium (8.4-10.2) mg/dL Magnesium 2.4 H (1.6-2.3) mg/dL Total Bilirubin (0.2-1.3) mg/dL AST (14-36) U/L ALT (0-35) U/L Alkaline Phosphatase (38-126) U/L NT-Pro-B Natriuret Pep (<300) pg/mL Serum Total Protein (6.3-8.2) g/dL Albumin (3.5-5.0) g/dL Prealbumin 21.52 (17.6-36.0) mg/dL Urine Color (Yellow) Urine Appearance (Clear) Urine pH (4.6-8.0) Ur Specific Winfred (1.005-1.030) Urine Protein (Negative) Urine Glucose (UA) (Negative) mg/dL Urine Ketones (Negative) Urine Blood (Negative) Urine Nitrite (Negative) Urine Bilirubin (Negative) Urine Urobilinogen (0.2) mg/dL Ur Leukocyte Esterase (Negative) U Hyaline Cast (Auto) (0-2) /LPF Urine Microscopic RBC (0-5) /HPF Urine Microscopic WBC (0-5) /HPF Ur Epithelial Cells (None Seen) /HPF Urine Bacteria (None Seen) /HPF Urine Culture Reflexed (NO) Influenza Type A Ag (NEGATIVE) Influenza Type B Ag (NEGATIVE) RSV (PCR) (NEGATIVE) SARS-CoV-2 (PCR) (NEGATIVE) 04/08/24 04/08/24 Range/Units 04:42 04:42 WBC 8.1 (3.98-10.04) x10^3/uL RBC 4.35 (3.93-5.22) x10^6/uL Hgb 10.5 L (11.2-15.7) g/dL Hct 36.3 (34.1-44.9) % MCV 83.4 (79.4-94.8) fL MCH 24.1 L (25.6-32.2) pg MCHC 28.9 L (32.2-35.5) g/dL RDW 18.9 H (11.7-14.4) % Plt Count 279 (182-369) x10^3/uL MPV 9.1 L (9.4-12.3) fL Gran % 89.9 H (34.0-71.1) % Immature Gran % (Auto) 0.4 (0.001-0.429) % Nucleat RBC Rel Count 0.0 (0.00-0.2) % Eos # (Auto) 0 L (0.04-0.36) x10^3/uL Immature Gran # (Auto) 0.03 (0.001-0.031) x10^3u/L Absolute Lymphs (auto) 0.72 L (1.18-3.74) x10^3/uL Absolute Monos (auto) 0.05 L (0.24-0.86) x10^3/uL Absolute Nucleated RBC 0.00 (0.00-0.012) x10^3u/L Lymphocytes % 8.9 L (19.3-51.7) % Monocytes % 0.6 L (4.7-12.5) % Eosinophils % 0.0 L (0.7-5.8) % Basophils % 0.2 (0.1-1.2) % Absolute Granulocytes 7.30 H (1.56-6.13) x10^3/uL Basophils # 0.02 (0.01-0.08) x10^3/uL Sodium 140 (135-145) mmol/L Potassium 4.2 D (3.5-5.1) mmol/L Chloride 92 L (98-107) mmol/L Carbon Dioxide 35 H (22-30) mmol/L Anion Gap 17.2 H (5-15) MEQ/L BUN 59 H (7-17) mg/dL Creatinine 1.79 H (0.52-1.04) mg/dL Estimated GFR 28.5 ML/MIN Glucose 177 H (74-106) mg/dL Calcium 9.1 (8.4-10.2) mg/dL Magnesium 2.6 H (1.6-2.3) mg/dL Total Bilirubin 0.30 (0.2-1.3) mg/dL AST 28 (14-36) U/L ALT 31 (0-35) U/L Alkaline Phosphatase 124 (38-126) U/L NT-Pro-B Natriuret Pep (<300) pg/mL Serum Total Protein 6.6 (6.3-8.2) g/dL Albumin 3.9 (3.5-5.0) g/dL Prealbumin (17.6-36.0) mg/dL Urine Color (Yellow) Urine Appearance (Clear) Urine pH (4.6-8.0) Ur Specific Winfred (1.005-1.030) Urine Protein (Negative) Urine Glucose (UA) (Negative) mg/dL Urine Ketones (Negative) Urine Blood (Negative) Urine Nitrite (Negative) Urine Bilirubin (Negative) Urine Urobilinogen (0.2) mg/dL Ur Leukocyte Esterase (Negative) U Hyaline Cast (Auto) (0-2) /LPF Urine Microscopic RBC (0-5) /HPF Urine Microscopic WBC (0-5) /HPF Ur Epithelial Cells (None Seen) /HPF Urine Bacteria (None Seen) /HPF Urine Culture Reflexed (NO) Influenza Type A Ag (NEGATIVE) Influenza Type B Ag (NEGATIVE) RSV (PCR) (NEGATIVE) SARS-CoV-2 (PCR) (NEGATIVE) Radiology Exams: Radiology Procedures Category Date Time Status ABDOMEN AND PELVIS W/0 CONTRAS [CT] Stat Exams 04/07/24 13:39 Completed CERVICAL SPINE WO CONTRAST [CT] Stat Exams 04/07/24 13:39 Completed CHEST 2 VIEWS (PA AND LAT) Routine Exams 04/08/24 11:49 Ordered CHEST WITHOUT CONTRAST [CT] Stat Exams 04/07/24 13:39 Completed HEAD WITHOUT CONTRAST [CT] Stat Exams 04/07/24 13:39 Completed Multi-Disciplinary Progress Notes: Multi-Disciplinary Progress Notes 04/08/24 11:51 Case Management Note by Minerva Doyle DONE- NO LEVEL II REQUIRED LOC APPROVED BOTH FAXED TO [facility] AT THIS TIME AND PLACED IN CHART Initialized on 04/08/24 11:51 - END OF NOTE 04/08/24 11:13 Case Management Note by Minerva Doyle AND LOC STARTED AT THIS TIME- PENDING REVIEW Initialized on 04/08/24 11:13 - END OF NOTE 04/08/24 10:45 Case Management Note by Minerva Doyle REFERRAL FAXED TO [facility] PER FAMILY REQUEST Initialized on 04/08/24 10:45 - END OF NOTE 04/08/24 10:38 Case Management Note by Minerva Doyle PATIENT HAS [facility]. THEY WERE NOTIFIED PATIENT HERE OBS. THEY WILL NEED NOTIFIED AT TIME OF DC AT [phone]. THEY WILL NEED FAXED THE DC INSTRUCTIONS, DC MED LIST AND DC SUMMARY TO [phone] Initialized on 04/08/24 10:38 - END OF NOTE Assessment/Plan (1) UTI (urinary tract infection) Current Visit: Yes Status: Acute Code(s): N39.0 - URINARY TRACT INFECTION, SITE NOT SPECIFIED (2) Frequent falls Current Visit: Yes Status: Acute Code(s): R29.6 - REPEATED FALLS (3) COPD (chronic obstructive pulmonary disease) Current Visit: Yes Status: Acute (4) Rib fracture Current Visit: Yes Status: Acute Code(s): S22.39XA - FRACTURE OF ONE RIB, UNSP SIDE, INIT FOR CLOS FX (5) Seizure disorder Current Visit: Yes Status: Acute Code(s): G40.909 - EPILEPSY, UNSP, NOT INTR ACTABLE, WITHOUT STATUS EPILEPTICUS (6) Acute on chronic renal failure Current Visit: No Status: Acute Code(s): N17.9 - ACUTE KIDNEY FAILURE, UNSPECIFIED; N18.9 - CHRONIC KIDNEY DISEASE, UNSPECIFIED (7) Anemia Current Visit: No Status: Acute Qualifiers: Anemia type: unspecified type Qualified Code(s): D64.9 - Anemia, unspecified Code(s): D64.9 - ANEMIA, UNSPECIFIED (8) CHF exacerbation Current Visit: No Status: Acute Code(s): I50.9 - HEART FAILURE, UNSPECIFIED (9) COPD exacerbation Current Visit: No Status: Acute Code(s): J44.1 - CHRONIC OBSTRUCTIVE PULMONARY DISEASE W (ACUTE) EXACERBATION (10) Hypokalemia Current Visit: No Status: Acute Assessment & Plan: (1) UTI (urinary tract infection) Current Visit: Yes Status: Acute Assessment & Plan: - UA suspicious for infection, ceftriaxone started in ED empirically, will continue and follow culture - Recent culture 03/03/24 with ecoli with sensitivity to ceftriaxone+ - PT follows with Urology as OP - Gram negative sensitivity pending Code(s): N39.0 - URINARY TRACT INFECTION, SITE NOT SPECIFIED (2) Rib fracture Current Visit: Yes Status: Acute Assessment & Plan: -CT abdomen and pelvis demonstrates Left 11th rib acute fracture (non-displaced) - Narcotic pain management - Avoid NSAIDs with ANDREA -IS to reduce risk of atelectasis/pneumonia Code(s): S22.39XA - FRACTURE OF ONE RIB, UNSP SIDE, INIT FOR CLOS FX (3) CHF (congestive heart failure) Current Visit: Yes Status: Acute Assessment & Plan: -No echo on file -BNP -BLE 4+ pitting - Lasix x 1 dose -daily weight -Elevate HOB -Strict I&O - No consolidation/effusion noted on CT -optimize electrolytes -Jardiance -hold with ANDREA -04/08- CXR- consider lasix Code(s): I50.9 - HEART FAILURE, UNSPECIFIED (4) COPD (chronic obstructive pulmonary disease) Current Visit: Yes Status: Acute Assessment & Plan: - 2L at baseline and currently - Supplemental oxygen for spo2 goal 89-91% - Nebs prn - continue home advair - Resp viral panel- negative - Solumedrol 40mg bid - Ceftriaxone (5) Repeated falls Current Visit: Yes Status: Acute Assessment & Plan: -PT eval -secondary to weakness -Patient would like rehab on discharge- [facility] - case management to assist with placement Code(s): R29.6 - REPEATED FALLS (6) Acute on chronic renal failure Current Visit: No Status: Acute Assessment & Plan: -Baseline around 1.3-1.5 - at 1.7 -Avoid GEORGE/ARB/NSAIDS- lasix x 1 due to BLE edema -monitor renal/lytes -optimize electrolytes -Hold Jardiance 04/08 - Creat 1.79, did receive lasix last night Code(s): N17.9 - ACUTE KIDNEY FAILURE, UNSPECIFIED; N18.9 - CHRONIC KIDNEY DISEASE, UNSPECIFIED (7) Hypokalemia Current Visit: No Status: Acute Assessment & Plan: -resolved Code(s): E87.6 - HYPOKALEMIA (8) Seizure disorder Current Visit: Yes Status: Acute Assessment & Plan: -Hisory of seizure x 1 - continue lamotrigine - has neurology appt Monday Code(s): G40.909 - EPILEPSY, UNSP, NOT INTRACTABLE, WITHOUT STATUS EPILEPTICUS (9) Anemia Current Visit: No Status: Acute Qualifiers: Anemia type: unspecified type Qualified Code(s): D64.9 - Anemia, unspecified Assessment & Plan: -chronic - at baseline at 10.8 - continue ferrous sulfate Code(s): D64.9 - ANEMIA, UNSPECIFIED Code(s): E87.6 - HYPOKALEMIA (11) Depression Current Visit: Yes Status: Acute Assessment & Plan: - Continue Paxil - Consider turning leaf at d/c VTE: Lovenox PPI: Protonix Code status: Full code Code(s): F32.A - DEPRESSION, UNSPECIFIED
--- NOTE | 2024-04-08 12:36 | XRAY ---
Indication: Coarse lung sounds. Comparison: March 28, 2024 Portable chest less inflated with new right mid lung discoid atelectasis/scarring. Stable chronic blunting left costophrenic angle. Remaining heart and lungs unremarkable. Bony thorax intact again with osteopenia.
[2024-04-08 23:55] VITALS: RESP 18
[2024-04-09] MEDS: NORCO 5/325 MG PO PRN (01:52)
[2024-04-09 05:01] LABS: Hematocrit 32.3 % (34.1-44.9); Hemoglobin 9.4 g/dL (11.2-15.7); Mean Cell Volume 82.6 fL (79.4-94.8); Mean Corpuscular Hgb Concent. 29.1 g/dL (32.2-35.5); Mean Platelet Volume 8.9 fL (9.4-12.3); Platelet Count 254 x10^3/uL (182-369); Red Blood Count 3.91 x10^6/uL (3.93-5.22); Red Cell Distribution Width 19.2 % (11.7-14.4)
[2024-04-09 05:24] LABS: ALBUMIN 3.6 g/dL (3.5-5.0); ANION GAP 7.9 MEQ/L (5-15); BILIRUBIN,TOTAL 0.2 mg/dL (0.2-1.3); Calcium 9.1 mg/dL (8.4-10.2); Creatinine 1 1.57 mg/dL (0.52-1.04); EST GLOMERULAR FILTRATION RATE 33.4 ML/MIN; Potassium 4.6 mmol/L (3.5-5.1); Total Protein 6.1 g/dL (6.3-8.2)
--- NOTE | 2024-04-09 11:25 | PCM.DS ---
Discharge Summary Date of Admission: 04/07/24 16:59 Date of Discharge: 04/09/24 Admitting Physician: EDWIN KULKARNI MD Primary Care Provider: MANJIT LEE Allergies Allergies No Known Drug Allergies Allergy (Verified 03/28/24 14:41) Hospital Summary - Hospital Course Hospital Course: 04/08/24 Ms. Centeno is a 78 year old female with a pmhx of seizure, dementia, GERD, COPD (2L oxygen at baseline), PR, anxiety/depression, CAD with PCI of the mid LAD w ith 1 Medtronic Mao Fronteir drug-eluting stent , CHF, right nephrectomy, hypertension, HLD, and OA who presented to ED 04/07/24 after a ground level fall at home. Patient states she is supposed to use her walker at all times but ambulated without her walker down the [place] to her thermostat to turn down the heat and her knees gave out and she fell. She states "I ping-ponged between the two hallway jalloh when I went down." Once she fell she was unable to get up for around 30-45mins. She has multiple areas of bruising on exam including her right eye. Her daughter states this is her third fall in the last 10-12 days. They feel that her last fall resulted in the left rib fracture shown on today's CT scan as she has had left rib pain every since that fall. She also has complaints a productive cough with yellow sputum, increased shortness of breath, and dysuria. She has been seeing Crystal Arredondo (urology) as OP. She was requiring a mckoy cath at one point but later removed with successful voiding since. Per her daughter is being evaluated for bladder cancer with a cystoscopy planned. She wa s diagnosed with a UTI by her urologist around 03/25/24 and was placed on Augmentin. Due to weakness and multiple falls, patient and daughter requesting rehab on discharge for strengthening. Pt continues to have coarse lung sounds today. Repeat CXR ordered. Pt states she wants to go to [facility] at d/c as she has been falling on average three times per day. She is refusing a heart healthy diet. Pt denies CP, SOB, abd. pain, N/V/D. Discussed pt case with daughter in detail. 04/09/24 Pt resting in bed. Lung sounds have improved but she continues to have some wheezing. Discussed she is at high risk for pneumonia d/t rib fracture and needs to use incentive spirometer and make sure she is taking deep breaths. Discussed pt case with Daughter Kennedi on the phone and answered all questions and c oncerns. Will continue OP antibiotics for UTI. UC + for Proteus Mirabilis. Pt will need repeat OP labs for kidney function and UA. Pt has an upcoming appointment with Urology per daughter. She denies CP, Issa pain, N/V/D. - Vitals & Intake/Output Vital Signs: Vital Signs Temperature 97.8 F 04/09/24 07:47 Pulse Rate 68 04/09/24 07:47 Respiratory Rate 18 04/09/24 07:47 Blood Pressure 125/53 04/09/24 07:47 O2 Sat by Pulse Oximetry 95 04/09/24 07:47 Intake & Output: Intake & Output 04/06/24 04/07/24 04/08/24 04/09/24 11:59 11:59 11:59 11:59 Intake Total 1080 740 Output Total 1150 Balance -70 740 Weight 101.4 kg - Lab Result Diagrams: 04/09/24 04:58 04/09/24 04:58 Lab Results-Last 24 Hrs: Lab Results-Last 24 Hours 04/09/24 04/09/24 Range/Units 04:58 04:58 WBC 10.0 (3.98-10.04) x10^3/uL RBC 3.91 L (3.93-5.22) x10^6/uL Hgb 9.4 L (11.2-15.7) g/dL Hct 32.3 L (34.1-44.9) % MCV 82.6 (79.4-94.8) fL MCH 24.0 L (25.6-32.2) pg MCHC 29.1 L (32.2-35.5) g/dL RDW 19.2 H (11.7-14.4) % Plt Count 254 (182-369) x10^3/uL MPV 8.9 L (9.4-12.3) fL Sodium 138 (135-145) mmol/L Potassium 4.6 (3.5-5.1) mmol/L Chloride 96 L (98-107) mmol/L Carbon Dioxide 39 H (22-30) mmol/L Anion Gap 7.9 (5-15) MEQ/L BUN 55 H (7-17) mg/dL Creatinine 1.57 H (0.52-1.04) mg/dL Estimated GFR 33.4 ML/MIN Glucose 154 H (74-106) mg/dL Calcium 9.1 (8.4-10.2) mg/dL Total Bilirubin 0.20 (0.2-1.3) mg/dL AST 22 (14-36) U/L ALT 27 (0-35) U/L Alkaline Phosphatase 105 (38-126) U/L Serum Total Protein 6.1 L (6.3-8.2) g/dL Albumin 3.6 (3.5-5.0) g/dL Micro Results-Entire Visit: Microbiology 04/07/24 16:05 Urine Culture - Final Clean Catch Midstream Proteus Mirabilis - Radiology Exams Ordered Rad Exams-Entire Visit: Radiology Procedures Category Date Time Status ABDOMEN AND PELVIS W/0 CONTRAS [CT] Stat Exams 04/07/24 13:39 Completed CERVICAL SPINE WO CONTRAST [CT] Stat Exams 04/07/24 13:39 Completed CHEST 1 VIEW (PORTABLE) Routine Exams 04/08/24 11:49 Completed CHEST WITHOUT CONTRAST [CT] Stat Exams 04/07/24 13:39 Completed HEAD WITHOUT CONTRAST [CT] Stat Exams 04/07/24 13:39 Completed - Procedures and Test Procedures and Tests throughout Hospitalization: Therapy Orders & Screens 04/07/24 14:06 Respiratory Therapy Assessment DAILY Comment: 04/07/24 17:07 Oxygen Nasal Cannula 2 lpm Comment: Respiratory Therapy Consult ONCE Comment: Reason For Exam: 04/07/24 17:54 Respiratory Therapy Assessment DAILY Comment: Diagnosis: Fall/UTI/Weakness 04/07/24 18:34 PT Eval & Treat (MD Order) ONCE Reason for Eval:: WEAKNESS/RECURRENT FALLS Diagnosis: Fall/UTI/Weakness Incentive Spirometry UD Comment: Diagnosis: Fall/UTI/Weakness Respiratory Therapy Consult ONCE Comment: Reason For Exam: Diagnosis: Fall/UTI/Weakness OT Eval and Treat (MD Order) ONCE Comment: Physician Instructions: Reason For Exam: Diagnosis: Fall/UTI/Weakness 04/07/24 19:00 Respiratory MDI BID Comment: Diagnosis: Fall/UTI/Weakness 04/07/24 19:19 OT Screen per Nursing Assess ONCE Comment: Protocol Order Physician Instructions: Greater than 3 points order OT Admission Screening Reason For Exam: Triggered on Admission Diagnosis: Fall/UTI/Weakness Open Wound/Cellutlitis/Pressure Ulcers: No Acute Fx/ORIF/Change in wt bearing status: No Severe MUSCULOSKELETAL pain: Yes ADL Dysfunction: Yes Acute CVA w/Hemiparesis/Hemiplegia: No Decreased Functional Mobility/Strength: Yes Sprain/Strain: No Acute Post-op Mobility Dysfunction: No Total Points: 9 PT Screen per Nursing Assess ONCE Comment: Protocol Order Physician Instructions: Greater than 3 points order PT Admission Screenin Reason For Exam: Triggered on Admission Diagnosis: Fall/UTI/Weakness Open Wound/Cellutlitis/Pressure Ulcers: No Acute Fx/ORIF/Change in wt bearing status: No Severe MUSCULOSKELETAL pain: Yes ADL Dysfunction: Yes Acute CVA w/Hemiparesis/Hemiplegia: No Decreased Functional Mobility/Strength: Yes Sprain/Strain: No Acute Post-op Mobility Dysfunction: No Total Points: 9 RT Screen per Nursing Assess ONCE Comment: Protocol Order Physician Instructions: Greater than 3 points order RT Admission Screen Reason For Exam: Triggered on Admission Diagnosis: Fall/UTI/Weakness Diagnosis: Fall/UTI/Weakness Pneumonia: No Home O2: Yes Asthma: No CHF: Yes Home CPAP/BIPAP: No Home Nebs/MDI: Yes Total Points: 13 04/07/24 19:56 Respiratory MDI BID Comment: Diagnosis: Fall/UTI/Weakness 04/08/24 12:11 Incentive Spirometry UD Comment: Diagnosis: Fall/UTI/Weakness Discharge Exam General Appearance: no apparent distress, alert, obese Neurologic Exam: alert, oriented x 3, cooperative, normal mood/affect, nml cerebellar function, sensation nml, No motor deficits Eye Exam: PERRL, EOMI, eyes nml inspection Ears, Nose, Throat Exam: normal ENT inspection, pharynx normal, moist mucous membranes Neck Exam: normal inspection, non-tender, supple, full range of motion Respiratory Exam: normal breath sounds, lungs clear, wheezing, No respiratory distress Cardiovascular Exam: regular rate/rhythm, normal heart sounds Gastrointestinal/Abdomen Exam: soft, No tenderness, No mass Pelvic Exam: deferred Rectal Exam: deferred Back Exam: normal inspection, normal range of motion, No CVA tenderness, No vertebral tenderness Extremity Exam: normal inspection, normal range of motion Skin Exam: normal color, warm, dry Final Diagnosis/Problem List - Final Discharge Diagnosis/Problem (1) UTI (urinary tract infection) Current Visit: Yes Status: Acute Code(s): N39.0 - URINARY TRACT INFECTION, SITE NOT SPECIFIED (2) Frequent falls Current Visit: Yes Status: Acute Code(s): R29.6 - REPEATED FALLS (3) COPD (chronic obstructive pulmonary disease) Current Visit: Yes Status: Acute (4) Rib fracture Current Visit: Yes Status: Acute Code(s): S22.39XA - FRACTURE OF ONE RIB, UNSP SIDE, INIT FOR CLOS FX (5) Seizure disorder Current Visit: Yes Status: Acute Code(s): G40.909 - EPILEPSY, UNSP, NOT INTRACTABLE, WITHOUT STATUS EPILEPTICUS (6) Acute on chronic renal failure Current Visit: No Status: Acute Code(s): N17.9 - ACUTE KIDNEY FAILURE, UNSPECIFIED; N18.9 - CHRONIC KIDNEY DISEASE, UNSPECIFIED (7) Anemia Current Visit: No Status: Acute Code(s): D64.9 - ANEMIA, UNSPECIFIED (8) CHF exacerbation Current Visit: No Status: Acute Code(s): I50.9 - HEART FAILURE, UNSPECIFIED (9) COPD exacerbation Current Visit: No Status: Acute Code(s): J44.1 - CHRONIC OBSTRUCTIVE PULMONARY DISEASE W (ACUTE) EXACERBATION (10) Hypokalemia Current Visit: No Status: Acute Code(s): E87.6 - HYPOKALEMIA (11) Depression Current Visit: Yes Status: Acute Assessment & Plan: (1) UTI (urinary tract infection) Current Visit: Yes Status: Acute Assessment & Plan: - UA suspicious for infection, ceftriaxone started in ED empirically, will continue and follow culture - Recent culture 03/03/24 with ecoli with sensitivity to ceftriaxone+ - PT follows with Urology as OP - Gram negative sensitivity pending 04/09 - UC + for proteus Mirabilis - Continue OP antibiotics Code(s): N39.0 - URINARY TRACT INFECTION, SITE NOT SPECIFIED (2) Rib fracture Current Visit: Yes Status: Acute Assessment & Plan: -CT abdomen and pelvis demonstrates Left 11th rib acute fracture (non-displaced) - Narcotic pain management - Avoid NSAIDs with ANDREA -IS to reduce risk of atelectasis/pneumonia Code(s): S22.39XA - FRACTURE OF ONE RIB, UNSP SIDE, INIT FOR CLOS FX (3) CHF (congestive heart failure) Current Visit: Yes Status: Acute Assessment & Plan: -No echo on file -BNP -BLE 4+ pitting - Lasix x 1 dose -daily weight -Elevate HOB -Strict I&O - No consolidation/effusion noted on CT -optimize electrolytes -Jardiance -hold with ANDREA -04/08- CXR: Portable chest less inflated with new right mid lung discoid atelectasis/scarring. Stable chronic blunting left costophrenic angle. Remaining heart and lungs unremarkable. Bony thorax intact again with osteopenia. Code(s): I50.9 - HEART FAILURE, UNSPECIFIED (4) COPD (chronic obstructive pulmonary disease) Current Visit: Yes Status: Acute Assessment & Plan: - 2L at baseline and currently - Supplemental oxygen for spo2 goal 89-91% - Nebs prn - continue home advair - Resp viral panel- negative - Solumedrol 40mg bid - Ceftriaxone (5) Repeated falls Current Visit: Yes Status: Acute Assessment & Plan: -PT eval -secondary to weakness -Patient would like rehab on discharge- [facility] - case management to assist with placement - D/C to the [facility] for rehab Code(s): R29.6 - REPEATED FALLS (6) Acute on chronic renal failure Current Visit: No Status: Acute Assessment & Plan: -Baseline around 1.3-1.5 - at 1.7 -Avoid GEORGE/ARB/NSAIDS- lasix x 1 due to BLE edema -monitor renal/lytes -optimize electrolytes -Hold Jardiance 04/08 - Creat 1.79, did receive lasix last night 04/09 - Creat 1.57- improved - will need labs rechecked OP Code(s): N17.9 - ACUTE KIDNEY FAILURE, UNSPECIFIED; N18.9 - CHRONIC KIDNEY DISEASE, UNSPECIFIED (7) Hypokalemia Current Visit: No Status: Acute Assessment & Plan: -resolved Code(s): E87.6 - HYPOKALEMIA (8) Seizure disorder Current Visit: Yes Status: Acute Assessment & Plan: -Hisory of seizure x 1 - continue lamotrigine - has neurology appt Monday Code(s): G40.909 - EPILEPSY, UNSP, NOT INTRACTABLE, WITHOUT STATUS EPILEPTICUS (9) Anemia Current Visit: No Status: Acute Qualifiers: Anemia type: unspecified type Qualified Code(s): D64.9 - Anemia, unspecified Assessment & Plan: -chronic - at baseline at 10.8 - continue ferrous sulfate Code(s): D64.9 - ANEMIA, UNSPECIFIED Code(s): E87.6 - HYPOKALEMIA (11) Depression Current Visit: Yes Status: Acute Assessment & Plan: - Continue Paxil - Consider turning leaf at d/c Code(s): F32.A - DEPRESSION, UNSPECIFIED - Discharge Discharge Date: 04/09/24 ([facility]) Disposition: XFER OTHER Condition: Stable Prescriptions: New Fluticasone/Salmeterol 115/21 [Advair Hfa 115/21 Common canister*] 2 puff IH BIDRT 30 Days #1 inhaler Cefuroxime Axetil [Cefuroxime] 500 mg PO BID 7 Days #14 tablet Continue Furosemide 40 mg [Lasix 40 MG] 60 mg PO DAILY PARoxetine HCL [Paxil] 40 mg PO DAILY Atorvastatin Calcium [Lipitor] 40 mg PO HS Magnesium Oxide 400 mg [Mag-Ox 400] 400 mg PO DAILY Aspirin EC 81 mg [Ecotrin 81 mg] 81 mg PO DAILY Nitroglycerin 0.4 mg Tablet [Nitrostat 0.4 MG Tablet] 0.4 mg PO Q5MIN PRN MR X 3 PRN PRN Reason: Chest Pain Hydroxyzine HCl 25 mg [Atarax 25 mg] 25 mg PO QHS Gabapentin [Neurontin ] 400 mg PO TID Fluticasone Propion/Salmeterol [Fluticasone-Salmeterol 250-50] 2 puff PO DAILY Potassium Chloride [Klor-Con 8] 8 meq PO DAILY Hydrocodone/Acetaminophen [Hydrocodone-Acetamin 5-325 mg] 1 tab PO DAILY PRN PRN PRN Reason: Pain Empagliflozin [Jardiance] 10 mg PO DAILY Prednisone 10 mg [Deltasone 10 mg] 10 mg PO DAILY Lamotrigine [Lamotrigine ER] 25 mg PO BID Omeprazole 40 mg PO BID Alendronate Sodium 70 mg [Fosamax 70 MG] 70 mg PO WEEKLY Ferrous Sulfate 325 mg [Feosol 325 mg] 325 mg PO DAILY Instructions: Chronic Obstructive Pulmonary Disease, Urinary tract infection - Discharge instructions, How to Use an Incentive Spirometer, Rib fractures in adults, Obesity, Adult Additional Instructions: [facility] ORDERS: ADMIT TO LONG TERM FACILITY HEART HEALTHY DIET PT/OT EVAL AND TREAT SEE ATTACHED MED LIST Follow up with: MANJIT LEE [Primary Care Provider] - 04/18/24 2:30 pm
[2024-04-09 13:46] VITALS: BP 136/72; PULSE 71; TEMP 97.6; O2SAT 94
[2024-04-14] MEDS ORDERED: Fosamax 70 MG PO SCH (06:00)
== END 2024-04-09 15:52 ==
LOC: ED 13:21 → MED SURG 16:59
PROVIDERS: ADMIT Internal Medicine; ATTEND Internal Medicine
DX: N39.0 Urinary tract infection, site not specified (principal); R29.6 Repeated falls; W19.XXXA Unspecified fall, initial encounter; G40.909 Epilepsy, unspecified, not intractable, without status epilepticus; N17.9 Acute kidney failure, unspecified; D64.9 Anemia, unspecified; I12.9 Hypertensive chronic kidney disease with stage 1 through stage 4 chronic kidney disease, or unspecified chronic kidney disease; N18.9 Chronic kidney disease, unspecified; I50.9 Heart failure, unspecified; J44.1 Chronic obstructive pulmonary disease with (acute) exacerbation; E87.6 Hypokalemia; S22.32XA Fracture of one rib, left side, initial encounter for closed fracture; R60.0 Localized edema; F32.A Depression, unspecified; I25.2 Old myocardial infarction; E78.5 Hyperlipidemia, unspecified; Z79.899 Other long term (current) drug therapy
CPT/HCPCS: 0241U; 36000; 36415; 70450; 71045; 71250; 72125; 74176; 80053; 81001; 83735; 83880; 84132; 84134; 85025; 85027; 87077; 87086; 87186; 94640; 94762; 96365; 96374; 96375; 97161; 97165; 99284; 93268; J0696; J1650; J1940; J2405; J2919; J3010; J3480; A9270-GY; G0378

== ENCOUNTER 2024-05-17 09:06 | Emergency (ER) | payer MEDICARE ==
[2024-05-17 09:42] VITALS: TEMP 97.1
[2024-05-17 10:08] LABS: Absolute Neutrophil Ct (ANC) 7.69 x10^3/uL (1.56-6.13); BASOPHIL % 0.3 % (0.1-1.2); Basophil (Absolute #) 0.03 x10^3/uL (0.01-0.08); Eosinophil % 0.5 % (0.7-5.8); Eosinophil (Absolute #) 0.05 x10^3/uL (0.04-0.36); Hematocrit 35.4 % (34.1-44.9); Hemoglobin 10.3 g/dL (11.2-15.7); IMMATURE GRAN # 0.04 x10^3u/L (0.001-0.031); IMMATURE GRAN % 0.4 % (0.001-0.429); Lymphocyte (Absolute #) 1.04 x10^3/uL (1.18-3.74); Lymphocytes % 11.2 % (19.3-51.7); Mean Cell Volume 84.3 fL (79.4-94.8); Mean Corpuscular Hemoglobin 24.5 pg (25.6-32.2); Mean Corpuscular Hgb Concent. 29.1 g/dL (32.2-35.5); Mean Platelet Volume 9.1 fL (9.4-12.3); Monocytes % 4.3 % (4.7-12.5); Neutrophil % 83.3 % (34.0-71.1); Platelet Count 258 x10^3/uL (182-369); Red Cell Distribution Width 17.3 % (11.7-14.4); White Blood Count 9.3 x10^3/uL (3.98-10.04)
[2024-05-17 10:24] LABS: ALBUMIN 4.1 g/dL (3.5-5.0); BILIRUBIN,TOTAL 0.6 mg/dL (0.2-1.3); Calcium 9.5 mg/dL (8.4-10.2); Creatinine 1 1.67 mg/dL (0.52-1.04); Potassium 3.3 mmol/L (3.5-5.1)
[2024-05-17 10:32] LABS: ANION GAP 16.3 MEQ/L (5-15)
[2024-05-17] MEDS ORDERED: MORPHINE SULFATE 4 MG INJ ONE (10:45)
[2024-05-17] MEDS: MORPHINE SULFATE 4 MG INJ IM ONE (10:48)
[2024-05-17 11:35] LABS: Appearance Clear (Clear); Bacteria Many /HPF (None Seen); Bilirubin Negative (Negative); Blood Negative (Negative); Epithelial Cells None Seen /HPF (None Seen); Glucose, Urine 500 mg/dL (Negative); Hyaline Casts NONE SEEN /LPF (0-2); Ketones Negative (Negative); Leukocyte Esterase Moderate (Negative); Nitrite Negative (Negative); Ph 6.5 (4.6-8.0); Protein,Urine Dip Negative (Negative); RBC 0-2 /HPF (0-5); Urobilinogen 0.2 mg/dL (0.2); WBC 51-100 /HPF (0-5)
[2024-05-17 11:50] VITALS: BP 147/59; PULSE 74; RESP 20; O2SAT 97
--- NOTE | 2024-05-17 12:53 | ERPHSYRPT ---
- History of Present Illness Time Seen by Provider: 05/17/24 09:08 Source: patient, family Exam Limitations: no limitations Patient Subjective Stated Complaint: Left lower leg pain Triage Nursing Assessment: Patient brought into ED per w/c and transferred to bed with assist of 1. Patient A+O X3. Patient's skin pink, warm and dry. Patient complains of left lower leg/foot pain since Monday. Patient hit her left leg/foot on daughters car door causing bruising. Patient states the pain is worse when ambulating and touching left leg. Left leg/foot noted to be red, swollen, warm and bruised. 2+ pitting edema noted to left foot. Faint pulse noted to left foot. Physician History: 78-year-old female with multiple medical problems including COPD with chronic respiratory failure on 2 L oxygen, chronic lower extremity swellings, chronic pain accidentally bumped her left lower leg/ankle area against the car door 5 days ago followed by increasing pain swelling and bruising. Patient was seen outpatient and has x-rays done which are negative for fracture. Patient has been ambulating with a walker. Patient reports gradually increasing swelling in the left lower leg and hurts to touch. No fever or chills reported. Does have history of recurrent UTI and also having increased frequency with some burning sensation. Allergies/Adverse Reactions: No Known Drug Allergies Allergy (Verified 05/17/24 09:29) Home Medications: Atorvastatin Calcium [Lipitor] 40 mg PO HS 12/30/21 [History] Furosemide 40 mg [Lasix 40 MG] 60 mg PO DAILY 12/30/21 [History] PARoxetine HCL [Paxil] 40 mg PO DAILY 12/30/21 [History] Aspirin EC 81 mg [Ecotrin 81 mg] 81 mg PO DAILY 01/22/24 [History] Fluticasone Propion/Salmeterol [Fluticasone-Salmeterol 250-50] 2 puff PO DAILY 01/22/24 [History] Gabapentin [Neurontin ] 400 mg PO TID 01/22/24 [History] Hydroxyzine HCl 25 mg [Atarax 25 mg] 25 mg PO QHS 01/22/24 [History] Magnesium Oxide 400 mg [Mag-Ox 400] 400 mg PO DAILY 01/22/24 [History] Nitroglycerin 0.4 mg Tablet [Nitrostat 0.4 MG Tablet] 0.4 mg PO Q5MIN PRN MR X 3 PRN 01/22/24 [History] Potassium Chloride [Klor-Con 8] 8 meq PO DAILY 01/22/24 [History] Empagliflozin [Jardiance] 10 mg PO DAILY 02/07/24 [History] Hydrocodone/Acetaminophen [Hydrocodone-Acetamin 5-325 mg] 1 tab PO DAILY PRN PRN 02/07/24 [History] Prednisone 10 mg [Deltasone 10 mg] 10 mg PO DAILY 02/07/24 [History] Lamotrigine [Lamotrigine ER] 25 mg PO BID 03/28/24 [History] Alendronate Sodium 70 mg [Fosamax 70 MG] 70 mg PO WEEKLY 04/07/24 [History] Ferrous Sulfate 325 mg [Feosol 325 mg] 325 mg PO DAILY 04/07/24 [History] Omeprazole 40 mg PO BID 04/07/24 [History] Hx Tetanus, Diphtheria Vaccination/Date Given: No Hx Influenza Vaccination/Date Given: No Hx Pneumococcal Vaccination/Date Given: No Immunizations Up to Date: Yes Travel Risk - International Travel Have you traveled outside of the country in past 3 weeks: No - Emerging Infectious Disease Are you exhibiting symptoms associated with any current EIDs: No Symptoms: Shortness of Breath - Review of Systems Constitutional: No Symptoms Ears, Nose, & Throat: No Symptoms Respiratory: Dyspnea Cardiac: No Symptoms Abdominal/Gastrointestinal: No Symptoms Genitourinary Symptoms: Dysuria, Frequency Musculoskeletal: Arthralgias Skin: Skin Lesions Neurological: No Symptoms Psychological: No Symptoms Hematologic/Lymphatic: No Symptoms Immunological/Allergic: No Symptoms - Past Medical History Pertinent Past Medical History: Yes Neurological History: Migraines, Peripheral Neuropathy ENT History: Cataracts Cardiac History: Angina, High Cholesterol, Myocardial Infarction ([place]) Respiratory History: COPD, Pneumonia Endocrine Medical History: No Pertinent History Musculoskeletal History: Arthritis GI Medical History: Hemorrhoids, Hernia, Polyps, Ulcer History: No Pertinent History Psycho-Social History: Anxiety, Depression Female Reproductive Disorders: No Pertinent History Other Medical History: PCI of the mid LAD with 1 Medtronic Mao Fronteir drug- eluting stent (12/26/23). - Past Surgical History Past Surgical History: Yes Neuro Surgical History: No Pertinent History Cardiac: No Pertinent History Respiratory: No Pertinent History Gastrointestinal: Appendectomy, Cholecystectomy Genitourinary: No Pertinent History Musculoskeletal: No Pertinent History Female Surgical History: Section, Hysterectomy Other Surgical History: RIGHT KIDNEY REMOVAL Significant Family History: no pertinent family hx - Social History Smoking Status: Former smoker How long have you smoked: 45+ Exposure to second hand smoke: Yes Drug Use: none Patient Lives Alone: No (Brother) - Social Determinants of Health Will the patient participate in the screening: Yes Do you worry about a steady place to live?: No Do you have any problems with any of the following?: No known problems In the past 12 months,have you had to go without utilities?: No Transportation Issues: No Has anyone in your support network made you feel unsafe?: No Have you or anyone in your house had to go without enough: No - Nursing Vital Signs Nursing Vital Signs: Initial Vital Signs Blood Pressure 138/46 05/17/24 09:31 O2 Sat by Pulse Oximetry 98 05/17/24 09:31 Pain Scale Pain Intensity 0 - Physical Exam General Appearance: no apparent distress Neck Exam: normal inspection, full range of motion Cardiovascular/Respiratory Exam: normal breath sounds, regular rate/rhythm Gastrointestinal/Abdominal Exam: non-tender, soft Hips Exam: bilateral: non-tender, normal inspection, normal range of motion Legs Exam: right leg: non-tender, normal inspection, normal range of motion, no evidence of injury, bilateral leg: pain, soft tissue tenderness, swelling, other (Diffuse edema of both legs 2+ pitting but more on the left with some tenderness. Mild erythema.) Knees Exam: bilateral knee: non-tender, normal inspection, normal range of motion, no evidence of injury Ankle Exam: left ankle: pain, soft tissue tenderness (Bruising around ankle with minimal bony tenderness), swelling Foot Exam: bilateral foot: non-tender, normal inspection, normal range of motion, no evidence of injury Neuro/Tendon Exam: normal sensation, normal motor functions, tendon function deficit Mental Status Exam: alert, cooperative Skin Exam: normal color SpO2 Interpretation: normal SpO2: 97 O2 Delivery: Room Air Ordered Tests: Active Orders 24 hr Category Date Time Status VENOUS UNILAT/LIMITED EXTREMIT [US] Stat Exams 05/17/24 09:52 Taken CBC W DIFF Stat Lab 05/17/24 10:05 Completed CK-Creatinine Phosphokinase Stat Lab 05/17/24 10:05 Completed CMP Stat Lab 05/17/24 10:05 Completed CULTURE,URINE Stat Lab 05/17/24 11:18 Received Lactic Acid Stat Lab 05/17/24 10:03 Completed Lactic Acid Stat Lab 05/17/24 12:10 Received UA W/RFX UR CULTURE Stat Lab 05/17/24 11:18 Completed Medication Summary Discontinued Medications Generic Name Dose Route Start Last Admin Trade Name Howieq PRN Reason Stop Dose Admin Morphine Sulfate 4 mg 05/17/24 10:36 05/17/24 10:48 Morphine Sulfate 4 Mg/Ml Injection IM 05/17/24 10:37 4 mg STAT ONE Administration Morphine Sulfate Confirm 05/17/24 10:45 Morphine Sulfate 4 Mg/Ml Injection Administered 05/17/24 10:46 Dose 4 mg .ROUTE .STK-MED ONE Lab/Rad Data: Laboratory Result Diagrams 05/17/24 10:05 05/17/24 10:05 Laboratory Results 05/17/24 05/17/24 05/17/24 Range/Units 11:18 10:05 10:05 WBC 9.3 (3.98-10.04) x10^3/uL RBC 4.20 (3.93-5.22) x10^6/uL Hgb 10.3 L (11.2-15.7) g/dL Hct 35.4 (34.1-44.9) % MCV 84.3 (79.4-94.8) fL MCH 24.5 L (25.6-32.2) pg MCHC 29.1 L (32.2-35.5) g/dL RDW 17.3 H (11.7-14.4) % Plt Count 258 (182-369) x10^3/uL MPV 9.1 L (9.4-12.3) fL Gran % 83.3 H (34.0-71.1) % Immature Gran % (Auto) 0.4 (0.001-0.429) % Nucleat RBC Rel Count 0.0 (0.00-0.2) % Eos # (Auto) 0.05 (0.04-0.36) x10^3/uL Immature Gran # (Auto) 0.04 H (0.001-0.031) x10^3u/L Absolute Lymphs (auto) 1.04 L (1.18-3.74) x10^3/uL Absolute Monos (auto) 0.40 (0.24-0.86) x10^3/uL Absolute Nucleated RBC 0.00 (0.00-0.012) x10^3u/L Lymphocytes % 11.2 L (19.3-51.7) % Monocytes % 4.3 L (4.7-12.5) % Eosinophils % 0.5 L (0.7-5.8) % Basophils % 0.3 (0.1-1.2) % Absolute Granulocytes 7.69 H (1.56-6.13) x10^3/uL Basophils # 0.03 (0.01-0.08) x10^3/uL Sodium 141 (135-145) mmol/L Potassium 3.3 L (3.5-5.1) mmol/L Chloride 91 L (98-107) mmol/L Carbon Dioxide 37 H (22-30) mmol/L Anion Gap 16.3 H (5-15) MEQ/L BUN 46 H (7-17) mg/dL Creatinine 1.67 H (0.52-1.04) mg/dL Estimated GFR 31.0 ML/MIN Glucose 152 H (74-106) mg/dL Lactic Acid (0.4-2.0) Calcium 9.5 (8.4-10.2) mg/dL Total Bilirubin 0.60 (0.2-1.3) mg/dL AST 31 (14-36) U/L ALT 30 (0-35) U/L Alkaline Phosphatase 108 (38-126) U/L Creatine Kinase 63 (30-135) U/L Serum Total Protein 7.0 (6.3-8.2) g/dL Albumin 4.1 (3.5-5.0) g/dL Urine Color Yellow (Yellow) Urine Appearance Clear (Clear) Urine pH 6.5 (4.6-8.0) Ur Specific [place] 1.010 (1.005-1.030) Urine Protein Negative (Negative) Urine Glucose (UA) 500 A (Negative) mg/dL Urine Ketones Negative (Negative) Urine Blood Negative (Negative) Urine Nitrite Negative (Negative) Urine Bilirubin Negative (Negative) Urine Urobilinogen 0.2 (0.2) mg/dL Ur Leukocyte Esterase Moderate A (Negative) U Hyaline Cast (Auto) NONE SEEN (0-2) /LPF Urine Microscopic RBC 0-2 (0-5) /HPF Urine Microscopic WBC 51-100 A (0-5) /HPF Ur Epithelial Cells None Seen (None Seen) /HPF Urine Bacteria Many A (None Seen) /HPF Urine Culture Reflexed YES (NO) 05/17/24 Range/Units 10:03 WBC (3.98-10.04) x10^3/uL RBC (3.93-5.22) x10^6/uL Hgb (11.2-15.7) g/dL Hct (34.1-44.9) % MCV (79.4-94.8) fL MCH (25.6-32.2) pg MCHC (32.2-35.5) g/dL RDW (11.7-14.4) % Plt Count (182-369) x10^3/uL MPV (9.4-12.3) fL Gran % (34.0-71.1) % Immature Gran % (Auto) (0.001-0.429) % Nucleat RBC Rel Count (0.00-0.2) % Eos # (Auto) (0.04-0.36) x10^3/uL Immature Gran # (Auto) (0.001-0.031) x10^3u/L Absolute Lymphs (auto) (1.18-3.74) x10^3/uL Absolute Monos (auto) (0.24-0.86) x10^3/uL Absolute Nucleated RBC (0.00-0.012) x10^3u/L Lymphocytes % (19.3-51.7) % Monocytes % (4.7-12.5) % Eosinophils % (0.7-5.8) % Basophils % (0.1-1.2) % Absolute Granulocytes (1.56-6.13) x10^3/uL Basophils # (0.01-0.08) x10^3/uL Sodium (135-145) mmol/L Potassium (3.5-5.1) mmol/L Chloride (98-107) mmol/L Carbon Dioxide (22-30) mmol/L Anion Gap (5-15) MEQ/L BUN (7-17) mg/dL Creatinine (0.52-1.04) mg/dL Estimated GFR ML/MIN Glucose (74-106) mg/dL Lactic Acid 2.3 H (0.4-2.0) Calcium (8.4-10.2) mg/dL Total Bilirubin (0.2-1.3) mg/dL AST (14-36) U/L ALT (0-35) U/L Alkaline Phosphatase (38-126) U/L Creatine Kinase (30-135) U/L Serum Total Protein (6.3-8.2) g/dL Albumin (3.5-5.0) g/dL Urine Color (Yellow) Urine Appearance (Clear) Urine pH (4.6-8.0) Ur Specific [place] (1.005-1.030) Urine Protein (Negative) Urine Glucose (UA) (Negative) mg/dL Urine Ketones (Negative) Urine Blood (Negative) Urine Nitrite (Negative) Urine Bilirubin (Negative) Urine Urobilinogen (0.2) mg/dL Ur Leukocyte Esterase (Negative) U Hyaline Cast (Auto) (0-2) /LPF Urine Microscopic RBC (0-5) /HPF Urine Microscopic WBC (0-5) /HPF Ur Epithelial Cells (None Seen) /HPF Urine Bacteria (None Seen) /HPF Urine Culture Reflexed (NO) - Progress Progress: improved, pain not gone completely, re-examined Progress Note: 05/17/24 12:52 78-year-old is evaluated in the ER for left lower leg/ankle area swelling and pain after she accidentally bumped against the car door 5 days ago and has outpatient x-rays done which were negative. Patient is sent in here today for DVT rule out. Does have some UTI symptoms as well. She is given symptomatic treatment for pain. Ruled out acute DVT, no signs of compartment, distal neurovascular eval intact. Questionable element of cellulitis and does have UTI and will treat with Keflex. Workup showed white count of 09, chemistries with stable CKD and normal CK level but has a lactate of 2.3. Ultrasound negative for DVT. Do not think needs to repeat another imaging. Recommended compression stocking, elevation and outpatient follow-up. Discussed signs symptoms of worsening needing return to ER which patient/daughter seem understanding. 05/17/24 12:53 Counseled pt/family regarding: lab results, diagnosis, need for follow-up, rad results Medical Desision Making - Independent Historian Additional History obtained from: Child - Diagnostic Testing Diagnostic test were ordered, analyzed, and reviewed by me: Yes Radiological Interpretation: Reviewed by me - Risk of complications The pt has a mod risk of morbidity or mortality based on: Need for prescription drug management - Departure Departure Disposition: Home Clinical Impression: UTI (urinary tract infection), Contusion, lower leg Condition: Stable Critical Care Time: No Referrals: MANJIT LEE [Primary Care Provider] - Follow up with PCP 1 day Instructions: Minor Contusion ED Additional Instructions: Take Tylenol as needed, keep it elevated, use compression stocking, follow-up with primary care for reevaluation. Weightbearing only as tolerated. Return to ER for intractable pain, swelling worsening of swelling, difficulty movements at ankle/toes or numbness of toes/discoloration or if develop fever chills etc. Prescriptions: Cephalexin Mh 500 mg [Keflex 500 mg] 500 mg PO TID #21 cap
--- NOTE | 2024-05-17 13:09 | XRAY ---
Indication: Swelling. Two-dimensional sonogram and color Doppler imaging major venous vessels left leg performed. Comparison: None No thrombus seen in the examined deep venous vessels left leg including greater saphenous vein. Veins demonstrate normal compressibility. Venous waveforms are normal with and without augmentation. Impression: Left leg negative for DVT.
[2024-05-17] MEDS ORDERED: Rocephin 1000 MG INJ ONE (13:14)
[2024-05-17] MEDS ORDERED: XYLOCAINE 1% HCL 20 ML MDV ONE (13:14)
[2024-05-17] MEDS: Rocephin 1000 MG INJ IM ONE (13:19)
== END 2024-05-17 13:46 | disposition home or self-care (01) ==
LOC: ED 09:06
DX: S80.12XA Contusion of left lower leg, initial encounter (principal); W22.8XXA Striking against or struck by other objects, initial encounter; N39.0 Urinary tract infection, site not specified; M79.662 Pain in left lower leg; Z79.899 Other long term (current) drug therapy
CPT/HCPCS: 36415; 80053; 81001; 82550; 83605; 85025; 87077; 87086; 87186; 93971; 96372; 99284; J0696; J2270

== ENCOUNTER 2024-09-11 09:13 | Observation (INO) | payer MEDICARE, OTHER ==
[2024-09-11] MEDS ORDERED: DUONEB 0.5-3 MG/3 ml Neb IH ONE (09:43)
[2024-09-11] MEDS: DUONEB 0.5-3 MG/3 ml Neb IH ONE (09:46)
[2024-09-11] MEDS ORDERED: BABY ASPIRIN 81 MG CHEW ONE (09:59)
[2024-09-11] MEDS ORDERED: Zofran 4 MG/2 ML VIAL ONE (09:59)
[2024-09-11 10:01] LABS: Absolute Neutrophil Ct (ANC) 7.91 x10^3/uL (1.56-6.13); BASOPHIL % 0.7 % (0.1-1.2); Basophil (Absolute #) 0.07 x10^3/uL (0.01-0.08); Eosinophil % 2.6 % (0.7-5.8); Eosinophil (Absolute #) 0.28 x10^3/uL (0.04-0.36); Hematocrit 39.2 % (34.1-44.9); Hemoglobin 11.7 g/dL (11.2-15.7); IMMATURE GRAN # 0.04 x10^3u/L (0.001-0.031); IMMATURE GRAN % 0.4 % (0.001-0.429); Lymphocyte (Absolute #) 1.76 x10^3/uL (1.18-3.74); Lymphocytes % 16.4 % (19.3-51.7); Mean Cell Volume 85.8 fL (79.4-94.8); Mean Corpuscular Hemoglobin 25.6 pg (25.6-32.2); Mean Corpuscular Hgb Concent. 29.8 g/dL (32.2-35.5); Mean Platelet Volume 9.2 fL (9.4-12.3); Monocyte (Absolute #) 0.67 x10^3/uL (0.24-0.86); Monocytes % 6.2 % (4.7-12.5); Neutrophil % 73.7 % (34.0-71.1); Platelet Count 274 x10^3/uL (182-369); Red Blood Count 4.57 x10^6/uL (3.93-5.22); Red Cell Distribution Width 17.8 % (11.7-14.4); White Blood Count 10.7 x10^3/uL (3.98-10.04)
[2024-09-11] MEDS ORDERED: SUBLIMAZE 100 MCG/2 ML ONE (10:01)
[2024-09-11] MEDS: Zofran 4 MG/2 ML VIAL IV ONE (10:05)
[2024-09-11] MEDS: SUBLIMAZE 100 MCG/2 ML IV ONE (10:05)
[2024-09-11] MEDS: BABY ASPIRIN 81 MG CHEW PO ONE (10:09)
--- NOTE | 2024-09-11 10:09 | ERPHSYRPT ---
- History of Present Illness Time Seen by Provider: 09/11/24 09:16 Historian: patient, family, EMS Exam Limitations: no limitations Patient Subjective Stated Complaint: C/O chest pain that began around 7:40am today Triage Nursing Assessment: Patient arrived by ambulance. She is alert and oriented; hearing adequately with hearing aids in place. No SOB; utilizing 02 @ 3L per N/C upon arrival and utilizes this at home daily as well. Occassional, m oist, cough noted. Wheezing noted. Some non-pitting edema present to BLE. Skin tone normal. Physician History: 79 years old female with multiple medical problems including coronary artery disease with LAD stenting, congestive heart failure, hypertension, hyperlipidemia, chronic respiratory failure secondary to COPD, seizure disorder presented in the ER with complaint of substernal chest pain started at 7:40 AM this morning, took 2 nitros prior to arrival with pain improved from intensity of 10-5/10 currently. Patient denies any increased difficulty breathing than wh at she has at her baseline. Has chronic cough and wheezing which is not any worse than usual. Denies any increased lower extremity swelling than usual. No fever or chills reported. And is currently on 3 L oxygen with sats in the low 90s. Allergies/Adverse Reactions: No Known Drug Allergies Allergy (Verified 09/11/24 09:51) Home Medications: Atorvastatin Calcium [Lipitor] 40 mg PO HS 12/30/21 [History] Furosemide 40 mg [Lasix 40 MG] 40 mg PO BID 12/30/21 [History] PARoxetine HCL [Paxil] 40 mg PO DAILY 12/30/21 [History] Aspirin EC 81 mg [Ecotrin 81 mg] 81 mg PO DAILY 01/22/24 [History] Gabapentin [Neurontin ] 400 mg PO TID 01/22/24 [History] Nitroglycerin 0.4 mg Tablet [Nitrostat 0.4 MG Tablet] 0.4 mg PO Q5MIN PRN MR X 3 PRN 01/22/24 [History] Potassium Chloride [Klor-Con 8] 8 meq PO BID 01/22/24 [History] Prednisone 10 mg [Deltasone 10 mg] 10 mg PO DAILY 02/07/24 [History] Alendronate Sodium 70 mg [Fosamax 70 MG] 70 mg PO WEEKLY 04/07/24 [History] Ferrous Sulfate 325 mg [Feosol 325 mg] 325 mg PO DAILY 04/07/24 [History] Omeprazole 40 mg PO BID 04/07/24 [History] Clopidogrel Bisulfate [PLAVIX Tablet] 75 mg PO DAILY 09/11/24 [History] Hydrocodone/Acetaminophen [Hydrocodone-Acetamin 5-325 mg] 1 each PO Q6HPRN PRN 09/11/24 [History] Melatonin/Pyridoxine [Melatonin 5 mg Tablet] 5 mg PO HS PRN 09/11/24 [History] PANTOPRAZOLE 40 mg Tablet [Protonix 40MG Tablet] 40 mg PO DAILY 09/11/24 [History] Vibegron [Gemtesa] 75 mg PO DAILY 09/11/24 [History] lamoTRIgine [Lamotrigine] 25 mg PO BID 09/11/24 [History] Tamsulosin HCl 0.4 mg [Flomax 0.4 MG] 0.4 mg PO DAILY 09/12/24 [History] Hx Tetanus, Diphtheria Vaccination/Date Given: Yes Hx Influenza Vaccination/Date Given: No Hx Pneumococcal Vaccination/Date Given: No Immunizations Up to Date: Yes Travel Risk - International Travel Have you traveled outside of the country in past 3 weeks: No - Emerging Infectious Disease Are you exhibiting symptoms associated with any current EIDs: No Symptoms: Shortness of Breath - Review of Systems Constitutional: No Symptoms Eyes: No Symptoms Ears, Nose, & Throat: No Symptoms Respiratory: Cough, Dyspnea, Dyspnea on Exertion ([place]), Wheezing Cardiac: Chest Pain, Edema Abdominal/Gastrointestinal: No Symptoms Genitourinary Symptoms: No Symptoms Musculoskeletal: Arthralgias Skin: No Symptoms Neurological: No Symptoms Endocrine: No Symptoms Hematologic/Lymphatic: No Symptoms - Past Medical History Pertinent Past Medical History: Yes Neurological History: Migraines, Peripheral Neuropathy ENT History: Cataracts Cardiac History: Angina, Congestive Heart Failure, High Cholesterol, Myocardial Infarction ([place]) Respiratory History: COPD, Pneumonia Endocrine Medical History: No Pertinent History Musculoskeletal History: Arthritis GI Medical History: Hemorrhoids, Hernia, Polyps, Ulcer History: No Pertinent History Psycho-Social History: Anxiety, Depression Female Reproductive Disorders: No Pertinent History Other Medical History: PCI of the mid LAD with 1 Medtronic Mao Fronteir drug- eluting stent (12/26/23). Automotive Alignment Specialist: Dr. Daryn Graves - Past Surgical History Past Surgical History: Yes Neuro Surgical History: No Pertinent History Cardiac: Cardiac Catheterization, Cardiac Stent Respiratory: No Pertinent History Gastrointestinal: Appendectomy, Cholecystectomy Genitourinary: No Pertinent History Musculoskeletal: No Pertinent History Female Surgical History: Section, Hysterectomy Other Surgical History: RIGHT KIDNEY REMOVAL Significant Family History: no pertinent family hx - Social History Smoking Status: Former smoker Exposure to second hand smoke: Yes Drug Use: none - Social Determinants of Health Will the patient participate in the screening: Yes Do you worry about a steady place to live?: No Do you have any problems with any of the following?: No known problems In the past 12 months,have you had to go without utilities?: No Transportation Issues: No Has anyone in your support network made you feel unsafe?: No Have you or anyone in your house had to go w/o enough food: No - Nursing Vital Signs Nursing Vital Signs: Initial Vital Signs Temperature 99.1 F 09/11/24 09:14 Pulse Rate 78 09/11/24 09:14 Respiratory Rate 19 09/11/24 09:14 O2 Sat by Pulse Oximetry 97 09/11/24 09:14 Pain Scale Pain Intensity 0 - Physical Exam General Appearance: no apparent distress, alert Eye Exam: PERRL/EOMI Ears, Nose, Throat Exam: normal ENT inspection Neck Exam: normal inspection, non-tender, supple, full range of motion Respiratory Exam: diminished breath sounds, rhonchi, wheezing Cardiovascular Exam: regular rate/rhythm, normal heart sounds Gastrointestinal/Abdomen Exam: soft, normal bowel sounds, No tenderness Back Exam: normal inspection, normal range of motion Extremity Exam: normal inspection, normal range of motion Neurologic Exam: alert, oriented x 3, cooperative Skin Exam: normal color SpO2 Interpretation: O2 applied SpO2: 94 O2 Delivery: Nasal Cannula (3L) Ordered Tests: Medication Summary Discontinued Medications Generic Name Dose Route Start Last Admin Trade Name Freq PRN Reason Stop Dose Admin Hydrocodone Bitart/Acetaminophen 1 tab 09/11/24 16:16 09/13/24 14:56 Hydrocodone/Apap 5/325 1 Tab Tablet PO 09/16/24 16:15 1 tab Q6HPRN PRN Administration PAIN Albuterol Sulfate 2.5 mg 09/11/24 15:00 09/13/24 13:07 Albuterol Sulfate 2.5 Mg/3 Ml Neb 10/11/24 14:59 Not Given Q4HRT GISELLE Albuterol/Ipratropium 3 ml 09/11/24 09:33 09/11/24 09:46 Ipratropium/Albuterol Sulfate 3 Ml Ampul.Neb 09/11/24 09:34 3 ml STAT ONE Administration Albuterol/Ipratropium Confirm 09/11/24 09:43 Ipratropium/Albuterol Sulfate 3 Ml Ampul.Neb Administered 09/11/24 09:44 Dose 3 ml IH .STK-MED ONE Albuterol/Ipratropium 3 ml 09/11/24 15:00 Ipratropium/Albuterol Sulfate 3 Ml Ampul.Neb 10/11/24 14:59 QIDRT GISELLE Alendronate Sodium 70 mg 09/13/24 06:00 09/13/24 06:11 Alendronate Sodium 70 Mg Tablet PO 10/13/24 05:59 70 mg Fr GISELLE Administration Aspirin 324 mg 09/11/24 09:32 09/11/24 10:09 Aspirin 81 Mg Tab.Chew PO 09/11/24 09:33 324 mg STAT ONE Administration Aspirin Confirm 09/11/24 09:59 Aspirin 81 Mg Tab.Chew Administered 09/11/24 10:00 Dose 324 mg .ROUTE .STK-MED ONE Aspirin 81 mg 09/12/24 10:00 09/13/24 09:39 Aspirin 81 Mg Tablet.Ec PO 10/12/24 09:59 81 mg DAILY GISELLE Administration Azithromycin Confirm 09/11/24 11:17 Azithromycin Inj Administered 09/11/24 11:18 Dose 500 mg IV .STK-MED ONE Clopidogrel Bisulfate 75 mg 09/12/24 10:00 09/13/24 09:40 Clopidogrel Bisulfate 75 Mg Tablet PO 10/12/24 09:59 75 mg DAILY GISELLE Administration Methylprednisolone Sodium 0 mg 09/11/24 22:00 09/13/24 09:41 Succinate 40 mg/ Sterile Water IV 10/11/24 21:59 40 mg 1 ml Q12HT GISELLE Administration Diclofenac Sodium 2 gm 09/11/24 13:57 Diclofenac Sodium 100 Gm Gel..Gram. TP 10/11/24 13:56 QID PRN PRN MUSCLE SPASMS Empagliflozin 10 mg 09/12/24 10:00 09/13/24 09:40 Empagliflozin 10 Mg Tablet PO 10/12/24 09:59 10 mg DAILY GISELLE Administration Fentanyl Citrate 50 mcg 09/11/24 09:32 09/11/24 10:05 Fentanyl Citrate 100 Mcg/2 Ml* Vial IV 09/11/24 09:33 50 mcg STAT ONE Administration Fentanyl Citrate Confirm 09/11/24 10:01 Fentanyl Citrate 100 Mcg/2 Ml* Vial Administered 09/11/24 10:02 Dose 100 mcg .ROUTE .STK-MED ONE Ferrous Sulfate 325 mg 09/12/24 10:00 09/13/24 09:39 Ferrous Sulfate 325 Mg Tablet PO 10/12/24 09:59 325 mg DAILY GISELLE Administration Furosemide 40 mg 09/11/24 17:00 09/13/24 09:41 Furosemide 40 Mg Tablet PO 10/11/24 16:59 40 mg BID DIURETIC GISELLE Administration Gabapentin 400 mg 09/11/24 15:00 09/13/24 14:56 Gabapentin 400 Mg Capsule PO 10/11/24 14:59 400 mg TID GISELLE Administration Hydroxyzine HCl 25 mg 09/11/24 14:00 Hydroxyzine Hcl 25 Mg Tablet PO 10/11/24 13:59 CLARIFY GISELLE Potassium Chloride 20 meq in 100 mls @ 50 mls/hr 09/11/24 10:45 09/11/24 16:15 Potassium Chloride 20 Meq In Water 100ml IV 09/11/24 14:44 Not Given Q2H GISELLE Ceftriaxone Sodium 1 gm in 100 mls @ 200 mls/hr 09/11/24 10:33 09/11/24 11:22 Rocephin 1 Gm / 100 Ml Nacl IV 09/11/24 11:02 Infused STAT ONE Infusion Azithromycin 500 mg/ Sodium 250 mls @ 250 mls/hr 09/11/24 10:33 09/11/24 12:27 Chloride IV 09/11/24 11:32 Infused STAT STA Infusion Sodium Chloride 1,000 mls @ 100 mls/hr 09/11/24 10:45 09/11/24 10:51 Sodium Chloride 0.9% 1000 Ml IV 10/11/24 10:44 100 mls/hr .Q10H GISELLE Administration Ceftriaxone Sodium Confirm 09/11/24 10:50 Rocephin 1 Gm / 100 Ml Nacl Administered 09/11/24 10:51 Dose 1 gm in 100 mls @ ud IV .STK-MED ONE Sodium Chloride Confirm 09/11/24 11:18 Sodium Chloride 100ml Mini-Bag Plus Administered 09/11/24 11:19 Dose 100 mls @ ud IV .STK-MED ONE Sodium Chloride Confirm 09/11/24 11:20 Sodium Chloride 0.9% 250 Ml Administered 09/11/24 11:21 Dose 250 mls @ ud IV .STK-MED ONE Sodium Chloride 1,000 mls @ 50 mls/hr 09/11/24 14:45 09/11/24 19:15 Sodium Chloride 0.9% 1000 Ml IV 10/11/24 14:44 50 mls/hr .Q20H GISELLE Administration Ceftriaxone Sodium 1 gm in 100 mls @ 200 mls/hr 09/12/24 10:00 09/13/24 09:57 Rocephin 1 Gm / 100 Ml Nacl IV 10/12/24 09:59 Not Given Q24H10 GISELLE Azithromycin 500 mg/ Sodium 250 mls @ 250 mls/hr 09/12/24 10:00 09/13/24 09:58 Chloride IV 10/12/24 09:59 Not Given Q24H10 GISELLE Lamotrigine 25 mg 09/11/24 22:00 09/13/24 09:39 Lamotrigine 100 Mg Tab PO 10/11/24 21:59 25 mg BID GISELLE Administration Magnesium Oxide 400 mg 09/11/24 14:03 09/11/24 15:27 Magnesium Oxide 400 Mg Tablet PO 09/11/24 14:04 400 mg STAT ONE Administration Melatonin 6 mg 09/11/24 22:00 09/11/24 21:38 Melatonin 3 Mg Tablet PO 10/11/24 21:59 6 mg HS PRN PRN Administration Methyl Salicylate 0 gm 09/11/24 14:15 09/12/24 21:10 Methyl Salicylate/Menthol 85 Gm Cream TOP 10/11/24 14:14 1 gm QID PRN PRN Administration Metolazone 2.5 mg 09/11/24 14:00 09/12/24 21:10 Metolazone 2.5 Mg Tablet PO 10/11/24 13:59 2.5 mg CLARIFY GISELLE Administration Metolazone Confirm 09/12/24 05:43 Metolazone 2.5 Mg Tablet Administered 09/12/24 05:44 Dose 2.5 mg .ROUTE .STK-MED ONE Miscellaneous Information 1 each 09/11/24 14:30 Medication Intervention 1 Each Each 10/11/24 14:29 .RN TO CHECK GISELLE Nystatin 0 gm 09/11/24 22:00 09/13/24 09:41 Nystatin Cream 30 Gm 30 Gm Tube TOP 10/11/24 21:59 30 gm BID GISELLE Administration Ondansetron HCl 4 mg 09/11/24 09:32 09/11/24 10:05 Ondansetron Hcl 4 Mg/2 Ml Vial IV 09/11/24 09:33 4 mg STAT ONE Administration Ondansetron HCl Confirm 09/11/24 09:59 Ondansetron Hcl 4 Mg/2 Ml Vial Administered 09/11/24 10:00 Dose 4 mg .ROUTE .STK-MED ONE Pantoprazole Sodium 40 mg 09/11/24 22:00 09/13/24 09:40 Protonix (Pantoprazole) 40 Mg Tablet PO 10/11/24 21:59 40 mg BID GISELLE Administration Pantoprazole Sodium 40 mg 09/12/24 10:00 Protonix (Pantoprazole) 40 Mg Tablet PO 10/12/24 09:59 DAILY GISELLE Paroxetine HCl 40 mg 09/12/24 10:00 09/13/24 09:39 Paroxetine Hcl 20 Mg Tablet PO 10/12/24 09:59 40 mg DAILY GISELLE Administration Potassium Bicarbonate 25 meq 09/11/24 15:30 09/11/24 20:00 Potassium Bicarbonate 25 Meq Tab PO 09/11/24 19:31 25 meq Q2H GISELLE Administration Potassium Chloride 40 meq 09/11/24 10:32 09/11/24 11:21 Potassium Chloride Tab 10 Meq Tab PO 09/11/24 10:33 40 meq STAT ONE Administration Potassium Chloride Confirm 09/11/24 11:16 Potassium Chloride Tab 10 Meq Tab Administered 09/11/24 11:17 Dose 40 meq .ROUTE .STK-MED ONE Potassium Chloride Confirm 09/11/24 12:00 Potassium Chloride Tab 10 Meq Tab Administered 09/11/24 12:01 Dose 20 meq .ROUTE .STK-MED ONE Potassium Chloride 10 meq 09/11/24 22:00 09/13/24 09:39 Potassium Chloride Tab 10 Meq Tab PO 10/11/24 21:59 10 meq BID GISELLE Administration Potassium Chloride 20 meq 09/13/24 08:30 09/13/24 08:25 Potassium Chloride Tab 10 Meq Tab PO 09/13/24 08:31 20 meq STAT ONE Administration Prednisone 10 mg 09/12/24 10:00 Prednisone 10 Mg Tablet PO 10/12/24 09:59 DAILY GISELLE Fluticasone/Salmeterol 2 puff 09/11/24 19:00 Fluticasone/Salmeterol 115/21 60 Puff Aer.W.Adap 10/11/24 18:59 BIDRT GISELLE Fluticasone/Salmeterol 2 puff 09/11/24 19:00 Fluticasone/Salmeterol 115/21 60 Puff Aer.W.Adap 10/11/24 18:59 BIDRT GISELLE Simvastatin 40 mg 09/11/24 22:00 09/12/24 21:09 Simvastatin 20 Mg Tablet PO 10/11/24 21:59 40 mg HS GISELLE Administration Lab/Rad Data: Laboratory Result Diagrams 09/11/24 09:55 09/11/24 09:55 Laboratory Results 09/11/24 09/11/24 09/11/24 Range/Units 09:55 09:55 09:55 WBC (3.98-10.04) x10^3/uL RBC (3.93-5.22) x10^6/uL Hgb (11.2-15.7) g/dL Hct (34.1-44.9) % MCV (79.4-94.8) fL MCH (25.6-32.2) pg MCHC (32.2-35.5) g/dL RDW (11.7-14.4) % Plt Count (182-369) x10^3/uL MPV (9.4-12.3) fL Gran % (34.0-71.1) % Immature Gran % (Auto) (0.001-0.429) % Nucleat RBC Rel Count (0.00-0.2) % Eos # (Auto) (0.04-0.36) x10^3/uL Immature Gran # (Auto) (0.001-0.031) x10^3u/L Absolute Lymphs (auto) (1.18-3.74) x10^3/uL Absolute Monos (auto) (0.24-0.86) x10^3/uL Absolute Nucleated RBC (0.00-0.012) x10^3u/L Lymphocytes % (19.3-51.7) % Monocytes % (4.7-12.5) % Eosinophils % (0.7-5.8) % Basophils % (0.1-1.2) % Absolute Granulocytes (1.56-6.13) x10^3/uL Basophils # (0.01-0.08) x10^3/uL Sodium 140 (135-145) mmol/L Potassium 2.6 L* (3.5-5.1) mmol/L Chloride 87 L (98-107) mmol/L Carbon Dioxide 35 H (22-30) mmol/L Anion Gap 20.6 H (5-15) MEQ/L BUN 68 H (7-17) mg/dL Creatinine 2.09 H (0.52-1.04) mg/dL Estimated GFR 23.5 ML/MIN Glucose 124 H (74-106) mg/dL Calcium 8.8 (8.4-10.2) mg/dL Magnesium 2.0 (1.6-2.3) mg/dL Total Bilirubin 0.70 (0.2-1.3) mg/dL AST 24 (14-36) U/L ALT 18 (0-35) U/L Alkaline Phosphatase 104 (38-126) U/L Troponin I 0.029 (0.000-0.033) ng/mL NT-Pro-B Natriuret Pep 201 (<300) pg/mL Serum Total Protein 6.3 (6.3-8.2) g/dL Albumin 4.0 (3.5-5.0) g/dL 09/11/24 Range/Units 09:55 WBC 10.7 H (3.98-10.04) x10^3/uL RBC 4.57 (3.93-5.22) x10^6/uL Hgb 11.7 (11.2-15.7) g/dL Hct 39.2 (34.1-44.9) % MCV 85.8 (79.4-94.8) fL MCH 25.6 (25.6-32.2) pg MCHC 29.8 L (32.2-35.5) g/dL RDW 17.8 H (11.7-14.4) % Plt Count 274 (182-369) x10^3/uL MPV 9.2 L (9.4-12.3) fL Gran % 73.7 H (34.0-71.1) % Immature Gran % (Auto) 0.4 (0.001-0.429) % Nucleat RBC Rel Count 0.0 (0.00-0.2) % Eos # (Auto) 0.28 (0.04-0.36) x10^3/uL Immature Gran # (Auto) 0.04 H (0.001-0.031) x10^3u/L Absolute Lymphs (auto) 1.76 (1.18-3.74) x10^3/uL Absolute Monos (auto) 0.67 (0.24-0.86) x10^3/uL Absolute Nucleated RBC 0.00 (0.00-0.012) x10^3u/L Lymphocytes % 16.4 L (19.3-51.7) % Monocytes % 6.2 (4.7-12.5) % Eosinophils % 2.6 (0.7-5.8) % Basophils % 0.7 (0.1-1.2) % Absolute Granulocytes 7.91 H (1.56-6.13) x10^3/uL Basophils # 0.07 (0.01-0.08) x10^3/uL Sodium (135-145) mmol/L Potassium (3.5-5.1) mmol/L Chloride (98-107) mmol/L Carbon Dioxide (22-30) mmol/L Anion Gap (5-15) MEQ/L BUN (7-17) mg/dL Creatinine (0.52-1.04) mg/dL Estimated GFR ML/MIN Glucose (74-106) mg/dL Calcium (8.4-10.2) mg/dL Magnesium (1.6-2.3) mg/dL Total Bilirubin (0.2-1.3) mg/dL AST (14-36) U/L ALT (0-35) U/L Alkaline Phosphatase (38-126) U/L Troponin I (0.000-0.033) ng/mL NT-Pro-B Natriuret Pep (<300) pg/mL Serum Total Protein (6.3-8.2) g/dL Albumin (3.5-5.0) g/dL - Progress Progress: improved, re-examined Air Movement: good Progress Note: 09/11/24 10:58 79 years old is evaluated in the ER for chest pain. Patient has history of chronic respiratory failure on 3 L oxygen, wheezing with sats in low 90s, EKG is sinus rhythm with PACs and no ST elevations. She is given neb treatment, feeling better on reevaluation. Chest x-ray showed airspace disease on the right mid to lower lung reviewed by me followed by official read. Has normal white count, chemistries with hypokalemia of 2.6, mag level is pending, has ANDREA on CKD with a baseline creatinine of 1.6 and today is 2.09, elevated gap of 20, started on gentle hydration and IV and oral potassium rep lacement. She is given a dose of Rocephin and Zithromax as well. Initial troponin is 0.029. She is given aspirin and fentanyl, reevaluation her chest pain is better. I have shared the results of workup with patient and family and recommended observation admission which they understand and agree. I have discussed with Dr. Schwartz and patient is accepted for admission. Blood Culture(s) Obtained: Yes Antibiotics given: Yes Discussed with : Rocio Will see patient in: hospital (observation) Counseled pt/family regarding: lab results, diagnosis, rad results Medical Desision Making - Independent Historian Additional History obtained from: Child, Airplane Inspector/EMT - Discussion of managment Care discussed with:: hospitalist Reviewed:: Test results Agreed on:: Treatment plan, place in obs Will see patient: in hospital - Diagnostic Testing Diagnostic test were ordered, analyzed, and reviewed by me: Yes Radiological Interpretation: Interpreted by me, Reviewed by me - Risk of complications The pt has a mod risk of morbidity or mortality based on: Need for prescription drug management The pt has a high risk of morbidity or mortality based on: Decision regarding h ospitilization or escalation of hosp level of care - Departure Departure Disposition: Observation Clinical Impression: Chest pain, rule out acute myocardial infarction, Acute kidney injury superimposed on CKD, Hypokalemia Condition: Stable Critical Care Time: No
--- NOTE | 2024-09-11 10:20 | XRAY ---
Indication: Chest pain. Comparison: April 08, 2024 Portable chest again demonstrates mild right infrahilar infiltrate/atelectasis and chronic blunting left costophrenic angle. Remaining heart and lungs unremarkable. Bony thorax intact again with osteopenia and degenerative changes. No new cardiopulmonary abnormalities.
[2024-09-11 10:26] LABS: BILIRUBIN,TOTAL 0.7 mg/dL (0.2-1.3); Calcium 8.8 mg/dL (8.4-10.2); Creatinine 1 2.09 mg/dL (0.52-1.04); EST GLOMERULAR FILTRATION RATE 23.5 ML/MIN; Total Protein 6.3 g/dL (6.3-8.2)
[2024-09-11 10:29] LABS: ANION GAP 20.6 MEQ/L (5-15); Potassium 2.6 mmol/L (3.5-5.1)
[2024-09-11] MEDS ORDERED: ROCEPHIN 1 GM / 100 ML NaCl 1 GM/100 ML IVPB IV ONE (10:50)
[2024-09-11] MEDS: ROCEPHIN 1 GM / 100 ML NaCl 1 GM/100 ML IVPB IV ONE (10:51)
[2024-09-11] MEDS: Sodium Chloride 0.9% 1000 ML 1,000 ML IV SCH ×2 (10:51→19:15)
[2024-09-11] MEDS ORDERED: Klor Con ONE ×2 (11:16→12:00)
[2024-09-11] MEDS ORDERED: ZITHROMAX IV IV ONE (11:17)
[2024-09-11] MEDS ORDERED: Sodium Chloride 100ML MINI-BAG PLUS 0 ML IV ONE (11:18)
[2024-09-11] MEDS ORDERED: Sodium Chloride 0.9% 250 ML 250 ML IV ONE (11:20)
[2024-09-11] MEDS: Klor Con PO ONE (11:21)
[2024-09-11] MEDS: ZITHROMAX IV*** 500 MG in Sodium Chloride 0.9% 250 ML 250 ML IV STA (11:22)
[2024-09-11] MEDS: POTASSIUM CHLORIDE 20 mEq IN WATER 100ML 20 MEQ/100 ML BAG IV SCH (12:28)
[2024-09-11] MEDS ORDERED: DICLOFENAC SODIUM TP PRN (13:57)
[2024-09-11] MEDS ORDERED: ATARAX 25 MG PO SCH (14:00)
[2024-09-11] MEDS ORDERED: MEDICATION INTERVENTION MC SCH (14:30)
--- NOTE | 2024-09-11 14:33 | PCM.HP ---
History of Present Illness - Chief Complaint Chief Complaint: chest pain r/o hypokalemia, ANDREA Date: 09/11/24 History of Present Illness: is a 79 year old female with PMHX of migraines, peripheral neuropathy, morbid obesity, CHF, VA, COPD, hyperlipidemia, OA. seizure disorder, anxiety, and depression. Pt on hospice services prior to admission. She presented in the ER today with complaint of substernal chest pain started at 7:40 AM this morning, took 2 nitros prior to arrival with pain improved from intensity of 10- 5/10. Patient denies any increased difficulty breathing than what she has at her baseline. Has chronic cough and wheezing which is not any worse than usual. Denies any increased lower extremity swelling than usual. No fever or chills reported. And is currently on 3 L oxygen with sats in the low 90s. She C/O BLLE extremity cellulitis and L> R with a scratch wound from her dog on the left lower for over 3 months now and not healing. She has yeast dermatitis under BL breast and abd folds, nystatin cream ordered. Continue IV antibiotics started in ED for pneumonia. This should also help the cellulitis. XR LLE ordered since the wound has been > 3 months with increased pain. K+ 2.6 in ER and replaced. repeat labs ordered. Pt now having muscle cramps and muscle rub ordered as well as 1 time order of magnesium PO. Will consider muscle relaxer but at her age this could cause more problems for her. Creat 2.9 baseline 1.34- Continue IVF at 50ml/hr. She is no longer having CP on admission. Trop x1 negative. She denies CP, SOB, abd. pain, N/V/D. - Review of Systems Constitutional: No Fever, No Chills Eyes: No Symptoms Ears, Nose, & Throat: No Symptoms Respiratory: Cough (with yellow production), No Short Of Breath Cardiac: No Chest Pain, No Edema, No Syncope Abdominal/Gastrointestinal: No Abdominal Pain, No Nausea, No Vomiting, No Diarrhea Genitourinary Symptoms: No Dysuria Musculoskeletal: No Back Pain, No Neck Pain Skin: Skin Lesions (LLE scratch from dog), Other (BLLE redness, Redness and foul odor under breast and abd skiin folds), No Rash Neurological: No Dizziness, No Focal Weakness, No Sensory Changes Psychological: No Symptoms Endocrine: No Symptoms Hematologic/Lymphatic: No Symptoms Immunological/Allergic: No Symptoms Medications & Allergies Home Medications: Home Medication List Atorvastatin Calcium [Lipitor] 40 mg PO HS 12/30/21 [History Confirmed 09/11/24] Furosemide 40 mg [Lasix 40 MG] 40 mg PO BID 12/30/21 [History Confirmed 09/11/24] PARoxetine HCL [Paxil] 40 mg PO DAILY 12/30/21 [History Confirmed 09/11/24] Aspirin EC 81 mg [Ecotrin 81 mg] 81 mg PO DAILY 01/22/24 [History Co nfirmed 09/11/24] Fluticasone Propion/Salmeterol [Fluticasone-Salmeterol 250-50] 1 puff PO BID 01/22/24 [History Confirmed 09/11/24] Gabapentin [Neurontin ] 400 mg PO TID 01/22/24 [History Confirmed 09/11/24] Hydroxyzine HCl 25 mg [Atarax 25 mg] 25 g PO CLARIFY 01/22/24 [History Confirmed 09/11/24] Nitroglycerin 0.4 mg Tablet [Nitrostat 0.4 MG Tablet] 0.4 mg PO Q5MIN PRN MR X 3 PRN 01/22/24 [History Confirmed 09/11/24] Potassium Chloride [Klor-Con 8] 8 meq PO BID 01/22/24 [History Confirmed 09/11/24] Empagliflozin [Jardiance] 10 mg PO DAILY 02/07/24 [History Confirmed 09/11/24] Prednisone 10 mg [Deltasone 10 mg] 10 mg PO DAILY 02/07/24 [History Confirmed 09/11/24] Alendronate Sodium 70 mg [Fosamax 70 MG] 70 mg PO WEEKLY 04/07/24 [History Confirmed 09/11/24] Ferrous Sulfate 325 mg [Feosol 325 mg] 325 mg PO DAILY 04/07/24 [History Confirmed 09/11/24] Omeprazole 40 mg PO BID 04/07/24 [History Confirmed 09/11/24] Clopidogrel Bisulfate [PLAVIX Tablet] 75 mg PO DAILY 09/11/24 [History Confirmed 09/11/24] Melatonin/Pyridoxine [Melatonin 5 mg Tablet] 5 mg PO HS PRN 09/11/24 [History Confirmed 09/11/24] Metolazone 2.5 mg [Zaroxolyn 2.5 MG] 2.5 mg PO CLARIFY 09/11/24 [History Confirmed 09/11/24] PANTOPRAZOLE 40 mg Tablet [Protonix 40MG Tablet] 40 mg PO DAILY 09/11/24 [History Confirmed 09/11/24] Vibegron [Gemtesa] 75 mg PO DAILY 09/11/24 [History Confirmed 09/11/24] lamoTRIgine [Lamotrigine] 25 mg PO BID 09/11/24 [History Confirmed 09/11/24] Allergies/Adverse Reactions: Allergies Allergy/AdvReac Type Severity Reaction Status Date / Time No Known Drug Allergies Allergy Verified 09/11/24 09:51 - Past Medical History Past Medical History: Yes Neurological History: Migraines, Peripheral Neuropathy ENT History: Cataracts Cardiac History: Angina, Congestive Heart Failure, High Cholesterol, Myocardial Infarction ([place]) Respiratory History: COPD, Pneumonia Endocrine Medical History: No Pertinent History Musculoskelatal History: Arthritis GI Medical History: Hemorrhoids, Hernia, Polyps, Ulcer History: No Pertinent History Pyscho-Social History: Anxiety, Depression Reproductive Disorders: No Pertinent History Comment: PCI of the mid LAD with 1 Medtronic [place] F[place]ir drug-eluting stent (12/26/23). 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 - Past Surgical History Past Surgical History: Yes Neuro Surgical History: No Pertinent History Cardiac History: Cardiac Catheterization, Cardiac Stent Respiratory Surgery: No Pertinent History GI Surgical History: Appendectomy, Cholecystectomy Genitourinary Surgical Hx: No Pertinent History Musculskeletal Surgical Hx: No Pertinent History Female Surgical History: Section, Hysterectomy Other Surgical History: RIGHT KIDNEY REMOVAL Significant Family History: no pertinent family hx - Social History Smoking Status: Former smoker How long have you smoked: 65 yrs Exposure to second hand smoke: Yes Alcohol: None Drug Use: none - Social Determinants of Health Will the patient participate in the screening: Yes Do you worry about a steady place to live?: No Do you have any problems with any of the following?: No known problems In the past 12 months,have you had to go without utilities?: No Have you or anyone in your house had to go without enough: No Transportation Issues: No Has anyone in your support network made you feel unsafe?: No Does the patient want assistance with any of the above?: No - Physical Exam Vital Signs: Vital Signs - 24 hr Temp Pulse Resp BP BP Pulse Ox 09/11/24 13:35 98 F 87 24 119/71 90 L 09/11/24 13:23 98.0 F 87 16 119/71 96 09/11/24 13:00 108/51 09/11/24 12:45 83 18 107/62 09/11/24 12:30 89 20 124/51 96 09/11/24 12:26 88 24 131/73 97 09/11/24 12:25 85 17 97 09/11/24 12:23 96 H 11 L 09/11/24 12:10 92 H 24 09/11/24 12:00 93 H 17 09/11/24 11:50 96 H 21 97 09/11/24 11:47 94 H 27 H 94 L 09/11/24 11:16 93 H 15 103/58 97 09/11/24 11:02 94 L 09/11/24 11:01 73 20 93/65 09/11/24 10:45 87 28 H 127/103 73 L 09/11/24 10:31 81 22 129/60 96 09/11/24 10:16 89 21 84/59 96 09/11/24 10:02 87 17 130/56 93 L 09/11/24 09:50 87 20 94 L 09/11/24 09:45 79 18 133/65 94 L 09/11/24 09:44 86 24 104/85 94 L 09/11/24 09:30 78 19 108/54 97 09/11/24 09:26 88 28 H 119/62 95 09/11/24 09:20 91 H 24 133/59 97 09/11/24 09:19 91 H 20 09/11/24 09:15 96 09/11/24 09:14 99.1 F 78 19 97 General Appearance: no apparent distress, alert, obese Neurologic Exam: alert, oriented x 3, cooperative, normal mood/affect, nml cerebellar function, nml station & gait, sensation nml, No motor deficits Eye Exam: PERRL/EOMI, eyes nml inspection Ears, Nose, Throat Exam: normal ENT inspection, TMs normal, pharynx normal, moist mucous membranes Neck Exam: normal inspection, non-tender, supple, full range of motion Respiratory Exam: rhonchi, No respiratory distress Cardiovascular Exam: regular rate/rhythm, normal heart sounds, normal peripheral pulses Gastrointestinal/Abdomen Exam: soft, normal bowel sounds, No tenderness, No mass Back Exam: normal inspection, normal range of motion, No CVA tenderness, No vertebral tenderness Extremity Exam: normal inspection, normal range of motion, pelvis stable, inflammation (BLLE), tenderness (BLLE) Skin Exam: normal color, warm, dry, other (Small skin lesion to LLE from dog, Redness under BL breast and abd. folds), No rash Lymphatic Exam: No adenopathy Results - Labs Lab/Micro Results: Lab Results-Last 24 Hours 09/11/24 09/11/24 09/11/24 Range/Units 09:55 09:55 09:55 WBC 10.7 H (3.98-10.04) x10^3/uL RBC 4.57 (3.93-5.22) x10^6/uL Hgb 11.7 (11.2-15.7) g/dL Hct 39.2 (34.1-44.9) % MCV 85.8 (79.4-94.8) fL MCH 25.6 (25.6-32.2) pg MCHC 29.8 L (32.2-35.5) g/dL RDW 17.8 H (11.7-14.4) % Plt Count 274 (182-369) x10^3/uL MPV 9.2 L (9.4-12.3) fL Gran % 73.7 H (34.0-71.1) % Immature Gran % (Auto) 0.4 (0.001-0.429) % Nucleat RBC Rel Count 0.0 (0.00-0.2) % Eos # (Auto) 0.28 (0.04-0.36) x10^3/uL Immature Gran # (Auto) 0.04 H (0.001-0.031) x10^3u/L Absolute Lymphs (auto) 1.76 (1.18-3.74) x10^3/uL Absolute Monos (auto) 0.67 (0.24-0.86) x10^3/uL Absolute Nucleated RBC 0.00 (0.00-0.012) x10^3u/L Lymphocytes % 16.4 L (19.3-51.7) % Monocytes % 6.2 (4.7-12.5) % Eosinophils % 2.6 (0.7-5.8) % Basophils % 0.7 (0.1-1.2) % Absolute Granulocytes 7.91 H (1.56-6.13) x10^3/uL Basophils # 0.07 (0.01-0.08) x10^3/uL Sodium 140 (135-145) mmol/L Potassium 2.6 L* (3.5-5.1) mmol/L Chloride 87 L (98-107) mmol/L Carbon Dioxide 35 H (22-30) mmol/L Anion Gap 20.6 H (5-15) MEQ/L BUN 68 H (7-17) mg/dL Creatinine 2.09 H (0.52-1.04) mg/dL Estimated GFR 23.5 ML/MIN Glucose 124 H (74-106) mg/dL Calcium 8.8 (8.4-10.2) mg/dL Magnesium (1.6-2.3) mg/dL Total Bilirubin 0.70 (0.2-1.3) mg/dL AST 24 (14-36) U/L ALT 18 (0-35) U/L Alkaline Phosphatase 104 (38-126) U/L Troponin I 0.029 (0.000-0.033) ng/mL NT-Pro-B Natriuret Pep 201 (<300) pg/mL Serum Total Protein 6.3 (6.3-8.2) g/dL Albumin 4.0 (3.5-5.0) g/dL 09/11/24 Range/Units 09:55 WBC (3.98-10.04) x10^3/uL RBC (3.93-5.22) x10^6/uL Hgb (11.2-15.7) g/dL Hct (34.1-44.9) % MCV (79.4-94.8) fL MCH (25.6-32.2) pg MCHC (32.2-35.5) g/dL RDW (11.7-14.4) % Plt Count (182-369) x10^3/uL MPV (9.4-12.3) fL Gran % (34.0-71.1) % Immature Gran % (Auto) (0.001-0.429) % Nucleat RBC Rel Count (0.00-0.2) % Eos # (Auto) (0.04-0.36) x10^3/uL Immature Gran # (Auto) (0.001-0.031) x10^3u/L Absolute Lymphs (auto) (1.18-3.74) x10^3/uL Absolute Monos (auto) (0.24-0.86) x10^3/uL Absolute Nucleated RBC (0.00-0.012) x10^3u/L Lymphocytes % (19.3-51.7) % Monocytes % (4.7-12.5) % Eosinophils % (0.7-5.8) % Basophils % (0.1-1.2) % Absolute Granulocytes (1.56-6.13) x10^3/uL Basophils # (0.01-0.08) x10^3/uL Sodium (135-145) mmol/L Potassium (3.5-5.1) mmol/L Chloride (98-107) mmol/L Carbon Dioxide (22-30) mmol/L Anion Gap (5-15) MEQ/L BUN (7-17) mg/dL Creatinine (0.52-1.04) mg/dL Estimated GFR ML/MIN Glucose (74-106) mg/dL Calcium (8.4-10.2) mg/dL Magnesium 2.0 (1.6-2.3) mg/dL Total Bilirubin (0.2-1.3) mg/dL AST (14-36) U/L ALT (0-35) U/L Alkaline Phosphatase (38-126) U/L Troponin I (0.000-0.033) ng/mL NT-Pro-B Natriuret Pep (<300) pg/mL Serum Total Protein (6.3-8.2) g/dL Albumin (3.5-5.0) g/dL - Radiology Impressions Radiology Exams & Impressions: Radiology Procedures Category Date Time Status CHEST 1 VIEW (PORTABLE) Stat Exams 09/11/24 09:32 Completed - Other Procedures and Tests Respiratory Therapy 09/11/24 09:50 Respiratory Therapy Assessment DAILY 09/11/24 13:35 Oxygen Nasal Cannula 3 lpm Respiratory Therapy Consult ONCE Assessment/Plan (1) Pneumonia Current Visit: Yes Status: Acute Assessment & Plan: - As seen on CXR: Portable chest again demonstrates mild right infrahilar infiltrate/atelectasis and chronic blunting left costophrenic angle. Remaining heart and lungs unremarkable. Bony thorax intact again with osteopenia and degenerative changes. No new cardiopulmonary abnormalities. - Cont. IV antibiotics, - solumedrol, duonebs, advair - On baseline 3lNC - Sputum culture Code(s): J18.9 - PNEUMONIA, UNSPECIFIED ORGANISM (2) Cellulitis of both lower extremities Current Visit: Yes Status: Acute Assessment & Plan: - WBC 10.7 - CBC, CMP reviewed - IV antibiotics - L> R and getting worse on LLE fro over 3 months after dog scratched - XR LLE - BC x2 pending Code(s): L03.115 - CELLULITIS OF RIGHT LOWER LIMB; L03.116 - CELLULITIS OF LEFT LOWER LIMB (3) Yeast dermatitis Current Visit: Yes Status: Acute Assessment & Plan: - Nystatin cream - Pillow cases under areas to aide in skin healing Code(s): B37.2 - CANDIDIASIS OF SKIN AND NAIL (4) Acute kidney injury superimposed on CKD Current Visit: Yes Status: Acute Assessment & Plan: - Creat 2.09- baseline 1.34 - IVF gave in ER - Cont IVF - NS @ 50ml/hr Code(s): N17.9 - ACUTE KIDNEY FAILURE, UNSPECIFIED; N18.9 - CHRONIC KIDNEY DISEASE, UNSPECIFIED (5) Chest pain, rule out acute myocardial infarction Current Visit: Yes Status: Acute Assessment & Plan: - Trop x 1 negative - EKG reviewed - Tele - Denies CP on admission Code(s): R07.9 - CHEST PAIN, UNSPECIFIED (6) Hypokalemia Current Visit: Yes Status: Acute Assessment & Plan: - K+ 2.6 on admission - replaced in ER - Recheck labs on admission Code(s): E87.6 - HYPOKALEMIA (7) Muscle cramps Current Visit: Yes Status: Acute Assessment & Plan: - Likely 2:2 hypokalemia - K+ replaced - One time Mg+ order PO - Aspercream PRN Code(s): R25.2 - CRAMP AND SPASM (8) CHF (congestive heart failure) Current Visit: No Status: Chronic Qualifiers: Heart failure type: unspecified Heart failure chronicity: chronic Qualified Code(s): I50.9 - Heart failure, unspecified Assessment & Plan: - BNP 201 - Continue home meds - not in acute exacerbation - CXR reviewed - no previous echo to review - Was on hospice prior to admission for CHF/COPD Code(s): I50.9 - HEART FAILURE, UNSPECIFIED (9) COPD (chronic obstructive pulmonary disease) Current Visit: No Status: Chronic Assessment & Plan: - On baseline 3lNC 96% - CXR: Portable chest again demonstrates mild right infrahilar infiltrate/atelectasis and chronic blunting left costophrenic angle. Remaining heart and lungs unremarkable. Bony thorax intact again with osteopenia and degenerative changes. No new cardiopulmonary abnormalities. (10) Morbid obesity with BMI of 45.0-49.9, adult Current Visit: Yes Status: Chronic Assessment & Plan: -Advised diet and exercise VTE: Plavix PPI: Protonix Next of KIN: Kennedi Escobar [phone] D/C plan: 2-3 days Code status: Full Code(s): E66.01 - MORBID (SEVERE) OBESITY DUE TO EXCESS CALORIES; Z68.42 - BODY MASS INDEX [BMI] 45.0-49.9, ADULT
[2024-09-11] MEDS: PROVENTIL 2.5 MG/3 ML NEB IH SCH (14:37)
[2024-09-11 14:38] LABS: MAGNESIUM 1.7 mg/dL (1.6-2.3); Potassium 3.1 mmol/L (3.5-5.1)
[2024-09-11] MEDS ORDERED: DUONEB 0.5-3 MG/3 ml Neb IH SCH (15:00)
[2024-09-11] MEDS: NYSTOP 30 GM CREAM TOP SCH (15:22)
[2024-09-11] MEDS: Neurontin PO SCH (15:26)
[2024-09-11] MEDS: MAG-OX 400 PO ONE (15:27)
--- NOTE | 2024-09-11 16:28 | XRAY ---
Indication: Nonhealing wound. Cellulitis. Comparison: None 2 view left lower leg demonstrates osteopenia, tiny posterior/plantar heel spurs, and mild scattered vascular calcifications. No other bony, articular, or soft tissue abnormalities.
[2024-09-11] MEDS: Lasix 40 MG PO SCH (16:38)
[2024-09-11] MEDS: NORCO 5/325 MG PO PRN (16:38)
[2024-09-11] MEDS: K-LYTE PO SCH (16:39)
[2024-09-11] MEDS ORDERED: Advair Hfa 115/21 Common canister IH SCH ×2 (19:00)
[2024-09-11] MEDS: Pain Relieving Rub TOP PRN (19:11)
[2024-09-11] MEDS: Klor Con PO SCH (21:37)
[2024-09-11] MEDS: MELATONIN PO PRN (21:38)
[2024-09-11] MEDS: lamICTAL 100MG TABLET PO SCH (21:38)
[2024-09-11] MEDS: ZOCOR 20MG PO SCH (21:40)
[2024-09-11] MEDS: Protonix 40MG Tablet PO SCH (21:40)
[2024-09-11] MEDS: solu-MEDROL 40 MG, Sterile H2O 10 ml 1 ML IV SCH (21:41)
[2024-09-12] MEDS ORDERED: Zaroxolyn 2.5 MG ONE (05:43)
[2024-09-12 06:17] LABS: ALBUMIN 3.5 g/dL (3.5-5.0); ANION GAP 13.5 MEQ/L (5-15); BILIRUBIN,TOTAL 0.3 mg/dL (0.2-1.3); Calcium 8.4 mg/dL (8.4-10.2); EST GLOMERULAR FILTRATION RATE 24.8 ML/MIN; Total Protein 5.7 g/dL (6.3-8.2)
[2024-09-12 09:07] LABS: Hematocrit 35.6 % (34.1-44.9); Hemoglobin 10.5 g/dL (11.2-15.7); Mean Cell Volume 86.8 fL (79.4-94.8); Mean Corpuscular Hemoglobin 25.6 pg (25.6-32.2); Mean Corpuscular Hgb Concent. 29.5 g/dL (32.2-35.5); Platelet Count 229 x10^3/uL (182-369); Red Cell Distribution Width 17.7 % (11.7-14.4); White Blood Count 6.2 x10^3/uL (3.98-10.04)
[2024-09-12] MEDS ORDERED: NON-FORMULARY ITEM (Vibegron [Gemtesa] 75 MG Tablet) PO SCH (10:00)
[2024-09-12] MEDS ORDERED: Protonix 40MG Tablet PO SCH (10:00)
[2024-09-12] MEDS ORDERED: DELTASONE 10 MG PO SCH (10:00)
[2024-09-12] MEDS: ROCEPHIN 1 GM / 100 ML NaCl 1 GM/100 ML IVPB IV SCH (10:18)
[2024-09-12] MEDS: ECOTRIN 81 MG PO SCH (10:18)
[2024-09-12] MEDS: ZITHROMAX IV*** 500 MG in Sodium Chloride 0.9% 250 ML 250 ML IV SCH (10:18)
[2024-09-12] MEDS: PLAVIX Tablet PO SCH (10:19)
[2024-09-12] MEDS: Paxil 20 MG PO SCH (10:19)
[2024-09-12] MEDS: FEOSOL 325 MG PO SCH (10:19)
[2024-09-12] MEDS: JARDIANCE PO SCH (10:20)
--- NOTE | 2024-09-12 12:58 | PCM.NOTE ---
Date and Time: 09/12/24 1251 Subjective Assessment: 09/11/24 is a 79 year old female with PMHX of migraines, peripheral neuropathy, morbid obesity, CHF, DC, COPD, hyperlipidemia, OA. seizure disorder, anxiety, and depression. Pt on hospice services prior to admission. She presented in the ER today with complaint of substernal chest pain started at 7:40 AM this morning, took 2 nitros prior to arrival with pain improved from intensity of 10- 5/10. Patient denies any increased difficulty breathing than what she has at her baseline. Has chronic cough and wheezing which is not any worse than usual. Denies any increased lower extremity swelling than usual. No fever or chills reported. And is currently on 3 L oxygen with sats in the low 90s. She C/O BLLE extremity cellulitis and L> R with a scratch wound from her dog on the left lower for over 3 months now and not healing. She has yeast dermatitis under BL breast and abd folds, nystatin cream ordered. Continue IV antibiotics started in ED for pneumonia. This should also help the cellulitis. XR LLE ordered since the wound has been > 3 months with increased pain. K+ 2.6 in ER and replaced. repeat labs ordered. Pt now having muscle cramps and muscle rub ordered as well as 1 time order of magnesium PO. Will consider muscle relaxer but at her age this could cause more problems for her. Creat 2.9 baseline 1.34- Continue IVF at 50ml/hr. She is no longer having CP on admission. Trop x1 negative. She denies CP, SOB, abd. pain, N/V/D. 09/12/24 Pt resting in bed. She is feeling better today. She remains on baseline O2 of 3LNC. Hypokalemia resolved. BCx2 and sputum cultures pending. Continue IV antibiotics, steroids, duonebs, advair for pneumonia. Kidney function at baseline. She continues to c/o pain under BL breast and abd folds from yeast infection. Asled nursing to place medication and pillow cases to aide in healing and comfort. She denies CP,SOB, abd pain, N/V/D. Redness of BLLE improved. - Review of Systems Constitutional: No Fever, No Chills Eyes: No Symptoms Ears, Nose, & Throat: No Symptoms Respiratory: No Cough, No Short Of Breath Cardiac: No Chest Pain, No Edema, No Syncope Abdominal/Gastrointestinal: No Abdominal Pain, No Nausea, No Vomiting, No Diarrhea Genitourinary Symptoms: No Dysuria Musculoskeletal: No Back Pain, No Neck Pain Skin: Cellulitis (under breast and abd folds), No Rash Neurological: No Dizziness, No Focal Weakness, No Sensory Changes Psychological: No Symptoms Endocrine: No Symptoms Hematologic/Lymphatic: No Symptoms Immunological/Allergic: No Symptoms Objective Exam General Appearance: no apparent distress, alert, obese Neurologic Exam: alert, oriented x 3, cooperative, normal mood/affect, nml cerebellar function, sensation nml, No motor deficits Skin Exam: normal color, warm, dry, other (redness under abd folds and breast) Eye Exam: PERRL, EOMI, eyes nml inspection Ears, Nose, Throat Exam: normal ENT inspection, pharynx normal, moist mucous membranes Neck Exam: normal inspection, non-tender, supple, full range of motion Respiratory Exam: normal breath sounds, lungs clear, No respiratory distress Cardiovascular Exam: regular rate/rhythm, normal heart sounds Gastrointestinal/Abdomen Exam: soft, No tenderness, No mass Extremity Exam: normal inspection, normal range of motion Back Exam: normal inspection, normal range of motion, No CVA tenderness, No vertebral tenderness Pelvic Exam: deferred Rectal Exam: deferred Objective Data Vital Signs: Vital Signs - 24 hr Temp Pulse Resp BP BP Pulse Ox 09/12/24 12:00 96.9 F 72 17 138/85 93 L 09/12/24 11:54 72 18 96 09/12/24 08:00 96.6 F 72 17 122/58 96 09/12/24 07:03 95 09/12/24 07:00 72 18 81 L 09/12/24 04:00 97.8 F 74 22 116/68 95 09/12/24 02:45 78 18 91 L 09/11/24 23:58 97.8 F 59 L 20 111/66 94 L 09/11/24 22:42 71 18 94 L 09/11/24 20:00 96.5 F 83 24 110/51 96 09/11/24 18:33 83 18 97 09/11/24 17:14 97.5 F 77 18 113/53 94 L 09/11/24 13:38 83 20 94 L 09/11/24 13:35 98 F 87 24 119/71 90 L 09/11/24 13:23 98.0 F 87 16 119/71 96 09/11/24 13:00 108/51 Pain Assessment - Last Documented Pain Intensity 4 Pain Scale Used 0-10 Pain Scale Intake and Output: Intake & Output 09/10/24 09/11/24 09/12/24 09/13/24 11:59 11:59 11:59 11:59 Intake Total 2429 Output Total 400 Balance 2028 Weight 104.4 kg 109 kg Lab Results: Lab Results-Last 24 Hours 09/11/24 09/11/24 09/11/24 Range/Units 14:04 17:30 Unknown WBC (3.98-10.04) x10^3/uL RBC (3.93-5.22) x10^6/uL Hgb (11.2-15.7) g/dL Hct (34.1-44.9) % MCV (79.4-94.8) fL MCH (25.6-32.2) pg MCHC (32.2-35.5) g/dL RDW (11.7-14.4) % Plt Count (182-369) x10^3/uL MPV (9.4-12.3) fL Sodium (135-145) mmol/L Potassium 3.1 L (3.5-5.1) mmol/L Chloride (98-107) mmol/L Carbon Dioxide (22-30) mmol/L Anion Gap (5-15) MEQ/L BUN (7-17) mg/dL Creatinine (0.52-1.04) mg/dL Estimated GFR ML/MIN Glucose (74-106) mg/dL Calcium (8.4-10.2) mg/dL Magnesium 1.7 (1.6-2.3) mg/dL Total Bilirubin (0.2-1.3) mg/dL AST (14-36) U/L ALT (0-35) U/L Alkaline Phosphatase (38-126) U/L Troponin I 0.036 H* 0.032 (0.000-0.033) ng/mL Serum Total Protein (6.3-8.2) g/dL Albumin (3.5-5.0) g/dL 09/12/24 09/12/24 09/12/24 Range/Units 05:34 05:34 05:34 WBC 6.2 (3.98-10.04) x10^3/uL RBC 4.10 (3.93-5.22) x10^6/uL Hgb 10.5 L (11.2-15.7) g/dL Hct 35.6 (34.1-44.9) % MCV 86.8 (79.4-94.8) fL MCH 25.6 (25.6-32.2) pg MCHC 29.5 L (32.2-35.5) g/dL RDW 17.7 H (11.7-14.4) % Plt Count 229 (182-369) x10^3/uL MPV 10.0 (9.4-12.3) fL Sodium 143 (135-145) mmol/L Potassium 4.0 D (3.5-5.1) mmol/L Chloride 94 L (98-107) mmol/L Carbon Dioxide 39 H (22-30) mmol/L Anion Gap 13.5 (5-15) MEQ/L BUN 64 H (7-17) mg/dL Creatinine 2.00 H (0.52-1.04) mg/dL Estimated GFR 24.8 ML/MIN Glucose 207 H (74-106) mg/dL Calcium 8.4 (8.4-10.2) mg/dL Magnesium 1.9 (1.6-2.3) mg/dL Total Bilirubin 0.30 (0.2-1.3) mg/dL AST 25 (14-36) U/L ALT 24 (0-35) U/L Alkaline Phosphatase 96 (38-126) U/L Troponin I (0.000-0.033) ng/mL Serum Total Protein 5.7 L (6.3-8.2) g/dL Albumin 3.5 (3.5-5.0) g/dL Radiology Exams: Radiology Procedures Category Date Time Status CHEST 1 VIEW (PORTABLE) Stat Exams 09/11/24 09:32 Completed LOWER LEG Routine Exams 09/11/24 14:46 Completed Multi-Disciplinary Progress Notes: Multi-Disciplinary Progress Notes 09/12/24 07:02 Respiratory Note by Paloma Rivera O2 sat 81% on RA. Patient had O2 off and O2 placed back on at 3lpm and patient's O2 sat increased to 95% on 3lpm per NC. Initialized on 09/12/24 07:02 - END OF NOTE 09/11/24 15:00 (created 09/12/24 09:39) Case Management Note by Minerva Doyle/Hari HRADEN FROM [facility]- PATIENT ACTIVE PATIENT, CAN STAY IN HOSPITAL OBS UNDER [facility] AT THIS TIME Initialized on 09/12/24 09:39 - END OF NOTE Assessment/Plan (1) Pneumonia Current Visit: Yes Status: Acute Code(s): J18.9 - PNEUMONIA, UNSPECIFIED ORGANISM (2) Cellulitis of both lower extremities Current Visit: Yes Status: Acute Code(s): L03.115 - CELLULITIS OF RIGHT LOWER LIMB; L03.116 - CELLULITIS OF LEFT LOWER LIMB (3) Yeast dermatitis Current Visit: Yes Status: Acute Code(s): B37.2 - CANDIDIASIS OF SKIN AND NAIL (4) Acute kidney injury superimposed on CKD Current Visit: Yes Status: Acute Code(s): N17.9 - ACUTE KIDNEY FAILURE, UNSPECIFIED; N18.9 - CHRONIC KIDNEY DISEASE, UNSPECIFIED (5) Chest pain, rule out acute myocardial infarction Current Visit: Yes Status: Acute Code(s): R07.9 - CHEST PAIN, UNSPECIFIED (6) Hypokalemia Current Visit: Yes Status: Acute Code(s): E87.6 - HYPOKALEMIA (7) Muscle cramps Current Visit: Yes Status: Acute Code(s): R25.2 - CRAMP AND SPASM (8) CHF (congestive heart failure) Current Visit: No Status: Chronic Qualifiers: Heart failure type: unspecified Heart failure chronicity: chronic Qualified Code(s): I50.9 - Heart failure, unspecified Code(s): I50.9 - HEART FAILURE, UNSPECIFIED (9) COPD (chronic obstructive pulmonary disease) Current Visit: No Status: Chronic (10) Morbid obesity with BMI of 45.0-49.9, adult Current Visit: Yes Status: Chronic Assessment & Plan: (1) Pneumonia Current Visit: Yes Status: Acute Assessment & Plan: - As seen on CXR: Portable chest again demonstrates mild right infrahilar infiltrate/atelectasis and chronic blunting left costophrenic angle. Remaining heart and lungs unremarkable. Bony thorax intact again with osteopenia and degenerative changes. No new cardiopulmonary abnormalities. - Cont. IV antibiotics, - solumedrol, duonebs, advair - On baseline 3lNC - Sputum culture Code(s): J18.9 - PNEUMONIA, UNSPECIFIED ORGANISM (2) Cellulitis of both lower extremities Current Visit: Yes Status: Acute Assessment & Plan: - WBC 10.7 - CBC, CMP reviewed - IV antibiotics - L> R and getting worse on LLE fro over 3 months after dog scratched - XR LLE- neg for acute concern - BC x2 pending 09/12 - WBC 6.2- WNL - Cellulitis almost resolved with IV antibiotics Code(s): L03.115 - CELLULITIS OF RIGHT LOWER LIMB; L03.116 - CELLULITIS OF LEFT LOWER LIMB (3) Yeast dermatitis Current Visit: Yes Status: Acute Assessment & Plan: - Nystatin cream - Pillow cases under areas to aide in skin healing Code(s): B37.2 - CANDIDIASIS OF SKIN AND NAIL (4) Acute kidney injury superimposed on CKD Current Visit: Yes Status: Acute Assessment & Plan: - Creat 2.09- baseline 1.34 - IVF gave in ER - Cont IVF - NS @ 50ml/hr 09/12 - At baseline renal function - CMP reviewed Code(s): N17.9 - ACUTE KIDNEY FAILURE, UNSPECIFIED; N18.9 - CHRONIC KIDNEY DISEASE, UNSPECIFIED (5) Chest pain, rule out acute myocardial infarction Current Visit: Yes Status: Acute Assessment & Plan: - Trop x 2 negative - 2nd trop slightly elevated then went back down. - HX end stage CHF on hospice - EKG reviewed - Tele - Denies CP on admission Code(s): R07.9 - CHEST PAIN, UNSPECIFIED (6) Hypokalemia Current Visit: Yes Status: Acute Assessment & Plan: - K+ 2.6 on admission - replaced in ER - Recheck labs on admission 09/12 - resolved Code(s): E87.6 - HYPOKALEMIA (7) Muscle cramps Current Visit: Yes Status: Acute Assessment & Plan: - Likely 2:2 hypokalemia - K+ replaced - One time Mg+ order PO - Aspercream PRN 09/12 - resolved Code(s): R25.2 - CRAMP AND SPASM (8) CHF (congestive heart failure) Current Visit: No Status: Chronic Qualifiers: Heart failure type: unspecified Heart failure chronicity: chronic Qualified Code(s): I50.9 - Heart failure, unspecified Assessment & Plan: - BNP 201 - Continue home meds - not in acute exacerbation - CXR reviewed - no previous echo to review - Was on hospice prior to admission for CHF/COPD Code(s): I50.9 - HEART FAILURE, UNSPECIFIED (9) COPD (chronic obstructive pulmonary disease) Current Visit: No Status: Chronic Assessment & Plan: - On baseline 3lNC 96% - CXR: Portable chest again demonstrates mild right infrahilar infiltrate/atelectasis and chronic blunting left costophrenic angle. Remaining heart and lungs unremarkable. Bony thorax intact again with osteopenia and degenerative changes. No new cardiopulmonary abnormalities. (10) Morbid obesity with BMI of 45.0-49.9, adult Current Visit: Yes Status: Chronic Assessment & Plan: -Advised diet and exercise VTE: Plavix PPI: Protonix Next of KIN: Kennedi Escobar [phone] D/C plan: tomorrow Code status: Full Code(s): E66.01 - MORBID (SEVERE) OBESITY DUE TO EXCESS CALORIES; Z68.42 - BODY MASS INDEX [BMI] 45.0-49.9, ADULT Code(s): E66.01 - MORBID (SEVERE) OBESITY DUE TO EXCESS CALORIES; Z68.42 - BODY MASS INDEX [BMI] 45.0-49.9, ADULT
[2024-09-12] MEDS: Zaroxolyn 2.5 MG PO SCH (21:10)
[2024-09-13 04:46] LABS: Hematocrit 35.7 % (34.1-44.9); Hemoglobin 10.6 g/dL (11.2-15.7); Mean Cell Volume 85.4 fL (79.4-94.8); Mean Corpuscular Hemoglobin 25.4 pg (25.6-32.2); Mean Corpuscular Hgb Concent. 29.7 g/dL (32.2-35.5); Mean Platelet Volume 9.7 fL (9.4-12.3); Platelet Count 256 x10^3/uL (182-369); Red Blood Count 4.18 x10^6/uL (3.93-5.22); Red Cell Distribution Width 17.7 % (11.7-14.4); White Blood Count 9.8 x10^3/uL (3.98-10.04)
[2024-09-13 05:05] LABS: ANION GAP 14.1 MEQ/L (5-15); Calcium 8.2 mg/dL (8.4-10.2); Creatinine 1 1.82 mg/dL (0.52-1.04); EST GLOMERULAR FILTRATION RATE 27.8 ML/MIN; Potassium 3.4 mmol/L (3.5-5.1)
[2024-09-13] MEDS: Fosamax 70 MG PO SCH (06:11)
[2024-09-13] MEDS: Klor Con PO ONE (08:25)
--- NOTE | 2024-09-13 10:23 | PCM.DS ---
Discharge Summary Date of Admission: 09/11/24 13:15 Date of Discharge: 09/13/24 Admitting Physician: SUNIL LEVINE MD Primary Care Provider: MANJIT LEE Allergies Allergies No Known Drug Allergies Allergy (Verified 09/11/24 09:51) Hospital Summary - Hospital Course Hospital Course: 09/11/24 is a 79 year old female with PMHX of migraines, peripheral neuropathy, morbid obesity, CHF, TN, COPD, hyperlipidemia, OA. seizure disorder, anxiety, and depression. Pt on hospice services prior to admission. She presented in the ER today with complaint of substernal chest pain started at 7:40 AM this morning, took 2 nitros prior to arrival with pain improved from intensity of 10- 5/10. Patient denies any increased difficulty breathing than what she has at her baseline. Has chronic cough and wheezing which is not any worse than usual. Denies any increased lower extremity swelling than usual. No fever or chills reported. And is currently on 3 L oxygen with sats in the low 90s. She C/O BLLE extremity cellulitis and L> R with a scratch wound from her dog on the left lower for over 3 months now and not healing. She has yeast dermatitis under BL breast and abd folds, nystatin cream ordered. Continue IV antibiotics started in ED for pneumonia. This should also help the cellulitis. XR LLE ordered since the wound has been > 3 months with increased pain. K+ 2.6 in ER and replaced. repeat labs ordered. Pt now having muscle cramps and muscle rub ordered as well as 1 time order of magnesium PO. Will consider muscle relaxer but at her age this could cause more problems for her. Creat 2.9 baseline 1.34- Continue IVF at 50ml/hr. She is no longer having CP on admission. Trop x1 negative. She denies CP, SOB, abd. pain, N/V/D. 09/12/24 Pt resting in bed. She is feeling better today. She remains on baseline O2 of 3LNC. Hypokalemia resolved. BCx2 and sputum cultures pending. Continue IV antibiotics, steroids, duonebs, advair for pneumonia. Kidney function at baseline. She continues to c/o pain under BL breast and abd folds from yeast infection. Asked nursing to place medication and pillow cases to aide in healing and comfort. She denies CP,SOB, abd pain, N/V/D. Redness of BLLE improved. 09/13/24 Pt resting in bed. She reports she is feeling much better and would like to d/c today. She is on baseline O2 of 3LNC. BCx2 negative. Sputum culture pending will continue to follow OP. .Continue PO antibiotic and steroids for pneumonia OP. Will continue nystatin cream for yeast infection under breast and groin. Kidney function near baseline. F/U with hospice OP. She denies any further concerns at this time. - Vitals & Intake/Output Vital Signs: Vital Signs Temperature 97.7 F 09/13/24 07:46 Pulse Rate 78 09/13/24 09:28 Respiratory Rate 24 09/13/24 09:28 Blood Pressure 121/56 09/13/24 07:46 O2 Sat by Pulse Oximetry 96 09/13/24 09:28 Intake & Output: Intake & Output 09/10/24 09/11/24 09/12/24 09/13/24 11:59 11:59 11:59 11:59 Intake Total 2429 600 Output Total 400 800 Balance 2028 Weight 104.4 kg 109 kg - Lab Result Diagrams: 09/13/24 04:35 09/13/24 04:35 Lab Results-Last 24 Hrs: Lab Results-Last 24 Hours 09/13/24 09/13/24 Range/Units 04:35 04:35 WBC 9.8 (3.98-10.04) x10^3/uL RBC 4.18 (3.93-5.22) x10^6/uL Hgb 10.6 L (11.2-15.7) g/dL Hct 35.7 (34.1-44.9) % MCV 85.4 (79.4-94.8) fL MCH 25.4 L (25.6-32.2) pg MCHC 29.7 L (32.2-35.5) g/dL RDW 17.7 H (11.7-14.4) % Plt Count 256 (182-369) x10^3/uL MPV 9.7 (9.4-12.3) fL Sodium 138 (135-145) mmol/L Potassium 3.4 L (3.5-5.1) mmol/L Chloride 91 L (98-107) mmol/L Carbon Dioxide 36 H (22-30) mmol/L Anion Gap 14.1 (5-15) MEQ/L BUN 59 H (7-17) mg/dL Creatinine 1.82 H (0.52-1.04) mg/dL Estimated GFR 27.8 ML/MIN Glucose 201 H (74-106) mg/dL Calcium 8.2 L (8.4-10.2) mg/dL Micro Results-Entire Visit: Microbiology 09/11/24 11:12 Blood Culture - Preliminary Blood 09/11/24 11:01 Blood Culture - Preliminary Blood - Radiology Exams Ordered Rad Exams-Entire Visit: Radiology Procedures Category Date Time Status CHEST 1 VIEW (PORTABLE) Stat Exams 09/11/24 09:32 Completed LOWER LEG Routine Exams 09/11/24 14:46 Completed - Procedures and Test Procedures and Tests throughout Hospitalization: Therapy Orders & Screens 09/11/24 09:50 Respiratory Therapy Assessment DAILY Comment: 09/11/24 13:35 Oxygen Nasal Cannula 3 lpm Comment: Respiratory Therapy Consult ONCE Comment: Reason For Exam: Discharge Exam General Appearance: no apparent distress, alert Neurologic Exam: alert, oriented x 3, cooperative, normal mood/affect, nml cerebellar function, sensation nml, No motor deficits Eye Exam: PERRL, EOMI, eyes nml inspection Ears, Nose, Throat Exam: normal ENT inspection, pharynx normal, moist mucous membranes Neck Exam: normal inspection, non-tender, supple, full range of motion Respiratory Exam: normal breath sounds, lungs clear, No respiratory distress Cardiovascular Exam: regular rate/rhythm, normal heart sounds Gastrointestinal/Abdomen Exam: soft, No tenderness, No mass Pelvic Exam: deferred Rectal Exam: deferred Back Exam: normal inspection, normal range of motion, No CVA tenderness, No vertebral tenderness Extremity Exam: normal inspection, normal range of motion Skin Exam: normal color, warm, dry Final Diagnosis/Problem List - Final Discharge Diagnosis/Problem (1) Pneumonia Current Visit: Yes Status: Acute Code(s): J18.9 - PNEUMONIA, UNSPECIFIED ORGANISM (2) Cellulitis of both lower extremities Current Visit: Yes Status: Acute Code(s): L03.115 - CELLULITIS OF RIGHT LOWER LIMB; L03.116 - CELLULITIS OF LEFT LOWER LIMB (3) Yeast dermatitis Current Visit: Yes Status: Acute Code(s): B37.2 - CANDIDIASIS OF SKIN AND NAIL (4) Acute kidney injury superimposed on CKD Current Visit: Yes Status: Acute Code(s): N17.9 - ACUTE KIDNEY FAILURE, UNSPECIFIED; N18.9 - CHRONIC KIDNEY DISEASE, UNSPECIFIED (5) Chest pain, rule out acute myocardial infarction Current Visit: Yes Status: Acute Code(s): R07.9 - CHEST PAIN, UNSPECIFIED (6) Hypokalemia Current Visit: Yes Status: Acute Code(s): E87.6 - HYPOKALEMIA (7) Muscle cramps Current Visit: Yes Status: Acute Code(s): R25.2 - CRAMP AND SPASM (8) CHF (congestive heart failure) Current Visit: No Status: Chronic Code(s): I50.9 - HEART FAILURE, UNSPECIFIED (9) COPD (chronic obstructive pulmonary disease) Current Visit: No Status: Chronic (10) Morbid obesity with BMI of 45.0-49.9, adult Current Visit: Yes Status: Chronic Assessment & Plan: (1) Pneumonia Current Visit: Yes Status: Acute Assessment & Plan: - As seen on CXR: Portable chest again demonstrates mild right infrahilar infiltrate/atelectasis and chronic blunting left costophrenic angle. Remaining heart and lungs unremarkable. Bony thorax intact again with osteopenia and degenerative changes. No new cardiopulmonary abnormalities. - Cont. IV antibiotics, - solumedrol, duonebs, advair - On baseline 3lNC 09/13 - D/C with PO antibiotics and steroids - CBC, CMP reviewed - Sputum culture pending will continue to follow OP - BC x2 negative - On baseline 3lNC Code(s): J18.9 - PNEUMONIA, UNSPECIFIED ORGANISM (2) Cellulitis of both lower extremities Current Visit: Yes Status: Acute Assessment & Plan: - WBC 10.7 - CBC, CMP reviewed - IV antibiotics - L> R and getting worse on LLE fro over 3 months after dog scratched - XR LLE- neg for acute concern - BC x2 pending 09/12 - WBC 6.2- WNL - Cellulitis almost resolved with IV antibiotics 09/13 - resolved Code(s): L03.115 - CELLULITIS OF RIGHT LOWER LIMB; L03.116 - CELLULITIS OF LEFT LOWER LIMB (3) Yeast dermatitis Current Visit: Yes Status: Acute Assessment & Plan: - Nystatin cream - Pillow cases under areas to aide in skin healing Code(s): B37.2 - CANDIDIASIS OF SKIN AND NAIL (4) Acute kidney injury superimposed on CKD Current Visit: Yes Status: Acute Assessment & Plan: - Creat 2.09- baseline 1.34 - IVF gave in ER - Cont IVF - NS @ 50ml/hr 09/12 - At baseline renal function - CMP reviewed Code(s): N17.9 - ACUTE KIDNEY FAILURE, UNSPECIFIED; N18.9 - CHRONIC KIDNEY DISEASE, UNSPECIFIED (5) Chest pain, rule out acute myocardial infarction Current Visit: Yes Status: Acute Assessment & Plan: - Trop x 2 negative - 2nd trop slightly elevated then went back down. - HX end stage CHF on hospice - EKG reviewed - Tele - Denies CP on admission Code(s): R07.9 - CHEST PAIN, UNSPECIFIED (6) Hypokalemia Current Visit: Yes Status: Acute Assessment & Plan: - K+ 2.6 on admission - replaced in ER - Recheck labs on admission 09/12 - resolved Code(s): E87.6 - HYPOKALEMIA (7) Muscle cramps Current Visit: Yes Status: Acute Assessment & Plan: - Likely 2:2 hypokalemia - K+ replaced - One time Mg+ order PO - Aspercream PRN 09/12 - resolved Code(s): R25.2 - CRAMP AND SPASM (8) CHF (congestive heart failure) Current Visit: No Status: Chronic Qualifiers: Heart failure type: unspecified Heart failure chronicity: chronic Qualified Code(s): I50.9 - Heart failure, unspecified Assessment & Plan: - BNP 201 - Continue home meds - not in acute exacerbation - CXR reviewed - no previous echo to review - Was on hospice prior to admission for CHF/COPD Code(s): I50.9 - HEART FAILURE, UNSPECIFIED (9) COPD (chronic obstructive pulmonary disease) Current Visit: No Status: Chronic Assessment & Plan: - On baseline 3lNC 96% - CXR: Portable chest again demonstrates mild right infrahilar infiltrate/atelectasis and chronic blunting left costophrenic angle. Remaining heart and lungs unremarkable. Bony thorax intact again with osteopenia and degenerative changes. No new cardiopulmonary abnormalities. (10) Morbid obesity with BMI of 45.0-49.9, adult Current Visit: Yes Status: Chronic Assessment & Plan: -Advised diet and exercise Code(s): E66.01 - MORBID (SEVERE) OBESITY DUE TO EXCESS CALORIES; Z68.42 - BODY MASS INDEX [BMI] 45.0-49.9, ADULT - Discharge Discharge Date: 09/13/24 Disposition: Home, Self-Care Condition: Stable Prescriptions: New Nystatin Cream 30 gm [Nystop 30 gm Cream] 1 dose TOP BID 30 Days #1 tu Continue Furosemide 40 mg [Lasix 40 MG] 40 mg PO BID PARoxetine HCL [Paxil] 40 mg PO DAILY Atorvastatin Calcium [Lipitor] 40 mg PO HS Aspirin EC 81 mg [Ecotrin 81 mg] 81 mg PO DAILY Nitroglycerin 0.4 mg Tablet [Nitrostat 0.4 MG Tablet] 0.4 mg PO Q5MIN PRN MR X 3 PRN PRN Reason: Chest Pain Gabapentin [Neurontin ] 400 mg PO TID Potassium Chloride [Klor-Con 8] 8 meq PO BID Prednisone 10 mg [Deltasone 10 mg] 10 mg PO DAILY Omeprazole 40 mg PO BID Alendronate Sodium 70 mg [Fosamax 70 MG] 70 mg PO WEEKLY Ferrous Sulfate 325 mg [Feosol 325 mg] 325 mg PO DAILY Vibegron [Gemtesa] 75 mg PO DAILY PANTOPRAZOLE 40 mg Tablet [Protonix 40MG Tablet] 40 mg PO DAILY Melatonin/Pyridoxine [Melatonin 5 mg Tablet] 5 mg PO HS PRN PRN Reason: Insomnia Clopidogrel Bisulfate [PLAVIX Tablet] 75 mg PO DAILY lamoTRIgine [Lamotrigine] 25 mg PO BID Hydrocodone/Acetaminophen [Hydrocodone-Acetamin 5-325 mg] 1 each PO Q6HPRN PRN PRN Reason: Pain Tamsulosin HCl 0.4 mg [Flomax 0.4 MG] 0.4 mg PO DAILY Instructions: Hypokalemia, Pneumonia in adults - Discharge instructions Additional Instructions: [facility] TO RESUME CARE Hold deltasone 10mg daily until new dose of steroids is completed. Use pillow cases under breast and groin regions to aide in healing. Change pillow cases daily. Wash hands. Refills of nystatin cream have been sent in if you need more. Follow up with: MANJIT LEE [Primary Care Provider] -
[2024-09-13 12:48] VITALS: BP 132/58; PULSE 96; RESP 20; TEMP 97.6
[2024-09-16 01:46] VITALS: O2SAT 94
== END 2024-09-13 16:56 | disposition home or self-care (01) ==
LOC: ED 09:13 → MED SURG 13:15
PROVIDERS: ADMIT Internal Medicine; ATTEND Internal Medicine
DX: J18.9 Pneumonia, unspecified organism (principal); L03.115 Cellulitis of right lower limb; L03.116 Cellulitis of left lower limb; B37.2 Candidiasis of skin and nail; R07.9 Chest pain, unspecified; R60.0 Localized edema; I25.10 Atherosclerotic heart disease of native coronary artery without angina pectoris; I13.0 Hypertensive heart and chronic kidney disease with heart failure and stage 1 through stage 4 chronic kidney disease, or unspecified chronic kidney disease; N18.9 Chronic kidney disease, unspecified; I50.9 Heart failure, unspecified; E78.5 Hyperlipidemia, unspecified; J96.10 Chronic respiratory failure, unspecified whether with hypoxia or hypercapnia; E87.6 Hypokalemia; F41.9 Anxiety disorder, unspecified; F32.9 Major depressive disorder, single episode, unspecified; N17.9 Acute kidney failure, unspecified; R25.2 Cramp and spasm; J44.9 Chronic obstructive pulmonary disease, unspecified; E66.01 Morbid (severe) obesity due to excess calories; Z79.899 Other long term (current) drug therapy; Z79.01 Long term (current) use of anticoagulants; Z68.42 Body mass index [BMI] 45.0-49.9, adult
CPT/HCPCS: 36415; 71045; 73590; 80048; 80053; 83735; 83880; 84132; 84484; 85025; 85027; 87040; 93005; 93041; 93268; 94640; 94760; 96374; 96375; 99285; J0456; J0696; J2405; J2919; J3010; J3480; J7609; Q3014; A9270-GY; G0378